=== PATIENT | male | born 1970 | race African-American/Black ===

== ENCOUNTER 2018-01-29 15:03 | Inpatient (IN) | payer OTHER ==
[2018-01-29 16:45] VITALS: BMI 23.0
--- NOTE | 2018-01-29 19:25 | HP ---
COWS - Scale Resting Pulse: 0= VT 80 or Below Sweatin=Flushed/Facial Moisture Restless Observation: 3= Extraneous Movement Pupil Size: 2= Moderately Dilated Bone or Joint Aches: 2= Severe Diffuse Aches Runny Nose/ Eye Tearin= Runny Nose/Eyes GI Upset > 30mins: 3= Vomiting/Diarrhea Tremor Observation: 2= Slight Tremor Visible Yawning Observation: 2= >3x During Session Anxiety or Irritability: 2=Irritable/Anxious Goose Flesh Skin: 0=Smooth Skin COWS Score: 20 CIWA Score - CIWA Score Nausea/Vomitin Muscle Tremors: 3 Anxiety: 3 Agitation: 3 Paroxysmal Sweats: 2 Orientation: 0-Oriented Tacttile Disturbances: 2-Mild Itch/Numbness/Burn Auditory Disturbances: 2-Mild Harshness/Frighten Visual Disturbances: 2-Mild Sensitivity Headache: 2-Mild CIWA-Ar Total Score: 22 Admission ROS BHS - HPI Chief Complaint: I NEED HELP TO STOP USING HEROIN,ALCOHOL,COCAINE Allergies/Adverse Reactions: Allergies Allergy/AdvReac Type Severity Reaction Status Date / Time No Known Allergies Allergy Verified 01/29/18 19:21 History of Present Illness: THIS 47 YEARS OLD MALE WITH HEROIN,ALCOHOL,COCAINE,MARIJUANA DEPENDENCE,SEEKING DETOX,,WITHDRAWAL SYMPTOM,LAST DETOX 2017 [facility] NICOTINE DEPENDENCE ASTHMA ANXIETY,DEPRESSION,INSOMNIA NO SIGNIFICANT PERIOD OF SOBRIETY Exam Limitations: No Limitations - Ebola screening Have you traveled outside of the country in the last 21 days: No Have you had contact with anyone from an Ebola affected area: No Have you been sick,other than usual withdrawal symptoms: Yes Do you have a fever: No - Review of Systems Constitutional: Chills, Loss of Appetite, Malaise, Night Sweats, Changes in sleep, Weakness, Unintentional Wgt. Loss EENT: reports: Tearing, Nose Congestion Respiratory: reports: Wheezing, Other (ASTHMA) Cardiac: reports: No Symptoms Reported GI: reports: Diarrhea, Nausea, Vomiting, Abdominal cramping : reports: No Symptoms Reported Musculoskeletal: reports: Back Pain, Joint Pain, Muscle Pain, Joint Stiffness Integumentary: reports: Dryness Neuro: reports: Headache, Tremors Endocrine: reports: No Symptoms Reported Hematology: reports: No Symptoms Reported Psychiatric: reports: Judgement Intact, Mood/Affect Appropiate, Orientated x3 ( INSOMNIA), Agitated, Anxious, Depressed Patient History - Patient Medical History Hx Anemia: No Hx Asthma: Yes (ON ABUTROL INHALER) Hx Chronic Obstructive Pulmonary Disease (COPD): No Hx Cancer: No Hx Cardiac Disorders: No Hx Congestive Heart Failure: No Hx Hypertension: No Hx Hypercholesterolemia: No Hx Pacemaker: No HX Cerebrovascular Accident: No Hx Seizures: No Hx Dementia: No Hx Diabetes: No Hx Gastrointestinal Disorders: No Hx Liver Disease: No Hx Genitourinary Disorders: No Hx Sexually Transmitted Disorders: No Hx Renal Disease (ESRD): No Hx Thyroid Disease: No Hx Human Immunodeficiency Virus (HIV): No (LAST 2017 NEGATIVE) Hx Hepatitis C: No Hx Depression: Yes (ANXIETY) Hx Suicide Attempt: No Hx Bipolar Disorder: No Hx Schizophrenia: No Other Medical History: INSOMNIA,NO SUICIDAL,NO HOMICIDAL - Patient Surgical History Past Surgical History: No - PPD History Previous Implant?: Yes Documented Results: Negative w/o proof Implanted On Prior [facility] Admission?: No PPD to be Administered?: Yes - Smoking Cessation Smoking history: Current every day smoker Have you smoked in the past 12 months: Yes Aproximately how many cigarettes per day: 20 Cigars Per Day: 0 Hx Chewing Tobacco Use: No Initiated information on smoking cessation: Yes 'Breaking Loose' booklet given: 01/29/18 - Substance & Tx. History Hx Alcohol Use: Yes Hx Substance Use: Yes Substance Use Type: Alcohol, Cocaine, Heroin, Marijuana Hx Substance Use Treatment: Yes ([facility] 2016) - Substances Abused Heroin Route: Inhalation Frequency: Daily Amount used: 10 BAGS Age of first use: 24 Date of Last Use: 01/28/18 Alcohol Route: Oral Frequency: Daily Amount used: 2 PINT S OF DEX/6 PACKS OF 16 OZS OF BEER Age of first use: 13 Date of Last Use: 01/29/18 Cocaine Route: Smoking Frequency: Daily Amount used: 50$ Age of first use: 24 Date of Last Use: 01/28/18 Marijuana/Hashish Route: Smoking Frequency: 3-6 times per week Amount used: 20$ Age of first use: 24 Date of Last Use: 01/28/18 Family Disease History - Family Disease History Family History: Denies Admission Physical Exam BHS - Vital Signs Vital Signs: Vital Signs - 24 hr 01/29/18 16:43 Temperature 96.1 F L Pulse Rate 79 Respiratory 20 Rate Blood Pressure 166/82 - Physical General Appearance: Yes: Moderate Distress, Tremorous, Irritable, Sweating, Anxious HEENTM: Yes: Normal ENT Inspection, Pharynx Normal, Pale Conjunctivae L Respiratory: Yes: Within Normal Limits, Lungs Clear, Normal Breath Sounds Neck: Yes: Within Normal Limits, Supple, Trachea in good position Breast: Yes: Within Normal Limits Cardiology: Yes: Within Normal Limits, Regular Rhythm, Regular Rate, S1, S2 Abdominal: Yes: Within Normal Limits, Normal Bowel Sounds, Non Tender, Soft Genitourinary: Yes: Within Normal Limits Back: Yes: Normal Inspection, Muscle Spasm Musculoskeletal: Yes: Back pain, Joint Stiffness, Muscle Pain Extremities: Yes: Within Normal Limits, Normal Range of Motion, Tremors Neurological: Yes: patent clerk II-XII NML intact, Alert, Motor Strength 5/5 Integumentary: Yes: Dry Lymphatic: Yes: Within Normal Limits - Diagnostic (1) Opioid dependence with withdrawal Current Visit: Yes Status: Acute (2) Alcohol dependence with uncomplicated withdrawal Current Visit: Yes Status: Acute (3) Cocaine dependence Current Visit: Yes Status: Acute (4) Cannabis dependence Current Visit: Yes Status: Acute (5) Nicotine dependence Current Visit: Yes Status: Acute (6) Weight loss Current Visit: Yes Status: Acute (7) Asthma Current Visit: Yes Status: Acute (8) Insomnia secondary to depression with anxiety Current Visit: Yes Status: Acute Cleared for Admission [facility] - Detox or Rehab [facility] Level of Care: Medically Managed Detox Regimen/Protocol: Methadone/Librium [facility] Breath Alcohol Content Breath Alcohol Content: 0 Urine Drug Screen - Results Drug Screen Negative: Yes Urine Drug Screen Results: THC-Marijuana, KRISTEL-Cocaine, OPI-Opiates
[2018-01-29] MEDS ORDERED: chlordiazePOXIDE HCL 25 MG CAPSULE PO ONE (19:39)
[2018-01-29] MEDS ORDERED: METHADONE HCL 10 MG TABLET (FOR DETOX USE ONLY) PO ONE ×2 (19:39→23:00)
[2018-01-29] MEDS ORDERED: NICOTINE POLACRILEX 2 MG GUM BC PRN (19:39)
[2018-01-29] MEDS ORDERED: MAGNESIUM HYDROX 2400MG/30ML ORAL SUSPENSION 30 ML CUP PO PRN (19:39)
[2018-01-29] MEDS ORDERED: hydrOXYzine PAMOATE 50 MG CAPSULE (FP) PO PRN (19:39)
[2018-01-29] MEDS ORDERED: chlordiazePOXIDE HCL 25 MG CAPSULE PO PRN (19:39)
[2018-01-29] MEDS ORDERED: ACETAMINOPHEN 325 MG TABLET (FP) PO PRN (19:39)
[2018-01-29] MEDS ORDERED: MENTHOL/PHENOL 1 EACH UD MM PRN (19:39)
[2018-01-29] MEDS ORDERED: guaiFENesin/D-METHORPHAN HB 10 ML UNIT-DOSE CUPS PO PRN (19:39)
[2018-01-29] MEDS ORDERED: IBUPROFEN 400 MG TABLET (FP) PO PRN (19:39)
[2018-01-29] MEDS ORDERED: LOPERAMIDE HCL 2 MG CAPSULE PO PRN (19:39)
[2018-01-29] MEDS ORDERED: MAG HYDROX/AL HYDROX/SIMETH 30 ML UNIT-DOSE CUP PO PRN (19:39)
[2018-01-29] MEDS ORDERED: P-EPHED 60MG/TRIPROLIDI 2.5MG TABLET PO PRN (19:39)
[2018-01-29] MEDS ORDERED: MAGNESIUM CITRATE 300 ML BOTTLE PO PRN (19:39)
[2018-01-29] MEDS ORDERED: NICOTINE 21 MG/24 HOURS TOPICAL PATCH TD SCH (19:45)
[2018-01-29 21:12] LABS: URINE APPEARANCE CLOUDY; URINE BILIRUBIN NEGATIVE (NEGATIVE); URINE BLOOD NEGATIVE (NEGATIVE); URINE COLOR YELLOW; URINE GLUCOSE (UA) NEGATIVE (NEGATIVE); URINE KETONE TRACE (NEGATIVE); URINE LEUK ESTERASE NEGATIVE (NEGATIVE); URINE NITRITE NEGATIVE (NEGATIVE); URINE PROTEIN NEGATIVE (NEGATIVE); URINE UROBILINOGEN NEGATIVE mg/dL (0.2-1.0)
[2018-01-29] MEDS ORDERED: THIAMINE HCL 100 MG TABLET (FP) PO SCH (22:00)
[2018-01-29] MEDS ORDERED: MELATONIN 5 MG TABLETS PO SCH (22:00)
--- NOTE | 2018-01-29 22:11 | PN ---
[facility] Progress Note Note: As per Ms. Aubrey NIETO, patient was unresponsive for about a minute. Chest compression and rapid response initiated. Patient was tarchycardic, diaphoretic and very anxious. Oxygen at 2 liters per minute initiated. V/S B/P 190/109, HR 132, RR 22, T102.4F, Saturation 97% with oxygen at 2 liters per minute. Blood sugar 165mg/dl. Patient is to be transferred to [facility] ER for further evaluation. Endorsed to Dr. Sesar Gutierrez.
[2018-01-29] MEDS ORDERED: chlordiazePOXIDE HCL 25 MG CAPSULE PO SCH (23:00)
--- NOTE | 2018-01-30 01:55 | PN ---
Teaching Attending Note Name of Resident: Chika Chung ATTENDING PHYSICIAN STATEMENT I saw and evaluated the patient. I reviewed the resident's note and discussed the case with the resident. I agree with the resident's findings and plan as documented. SUBJECTIVE: 47 yo M with hx. of polysubstance abise (heroin, cocaine, marijuana), nicotine dependence, anxiety, depression, insomnia who presents from [facility] where he had a episode of "unresponsiveness," Rapid response was called and CPR was started for one minute, when pt. came to. VS at [facility] showed a BPL 190/109, RR 22, HR 132, T 102.4. He had 02 sat of 97% on 02. BS was 165. OBJECTIVE: Physical: VS: Vital Signs Period Temp Pulse Resp BP Sys/Arambula Pulse Ox Last 24 Hr 96.1 F-98.2 F 79-82 20-20 166-182/78-82 GEN: HEENT: CARD: RESP: ABD: EXT: ASSESSMENT AND PLAN:
--- NOTE | 2018-01-30 02:04 | PN ---
Teaching Attending Note Name of Resident: Chika Chung ATTENDING PHYSICIAN STATEMENT I saw and evaluated the patient. I reviewed the resident's note and discussed the case with the resident. I agree with the resident's findings and plan as documented. SUBJECTIVE: 47 M with Pmhx of polysubstance abuse presents from [facility] s/p unresponsive episode. Pt. does not remember what happened, only that he feels tired. As per notes from [facility] [employer] was called for unresponsive episode. Pt. was found unresponsive and CPR started for "about a minute." His VS at [facility] are 02 97 % with 2 L NC, BS 165, HR 132 and P 190/109. Pt. states he was sleeping and they woke him up by preforming 2 compressions. OBJECTIVE: Physical: VS: Vital Signs Period Temp Pulse Resp BP Sys/Arambula Pulse Ox Last 24 Hr 96.1 F-98.2 F 79-82 20-20 166-182/78-82 GEN: NAD, Resting in bed, AA0X3 HEENT: NCAT, PERRL, Throat without erythema or exudates, poor dentition CARD: RRR S1, S2 RESP:Coarse breath sounds ABD: BSx4, NTD to Palpation EXT: Chronic Venous stasis, Pulses intact UA- Pending CXR- No Acute Process CBC: WBC 15.7 CHEM: NA 135 TROP: 0.14 EKG: NSR,TWI lateral leads, QtC 518 CXR: No acute Process ASSESSMENT AND PLAN: 47 M with hx. fo Polysubstance abuse presents with episode of Unresponsiveness, Being admitted for Troponin Elevation 1.) Elevated Troponin - HEART 2 - Most Likely Demand - ASA - Trend Trop/EKG 2.) Polysubstance Abuse - CIWA -
--- NOTE | 2018-01-30 09:09 | CONSULT ---
Consult Detox [facility] Reason for Current Admission/Consult: substance use Referred by:: moiz monaco - Alcohol/Substance Use Hx Alcohol Use: Yes COWS - Scale Resting Pulse: 0= AR 80 or Below Sweatin=Flushed/Facial Moisture Restless Observation: 3= Extraneous Movement Pupil Size: 2= Moderately Dilated Bone or Joint Aches: 2= Severe Diffuse Aches Runny Nose/ Eye Tearin= Runny Nose/Eyes GI Upset > 30mins: 3= Vomiting/Diarrhea Tremor Observation: 2= Slight Tremor Visible Yawning Observation: 2= >3x During Session Anxiety or Irritability: 2=Irritable/Anxious Goose Flesh Skin: 0=Smooth Skin COWS Score: 20 CIWA Score - CIWA Score Nausea/Vomitin Muscle Tremors: 3 Anxiety: 3 Agitation: 3 Paroxysmal Sweats: 2 Orientation: 0-Oriented Tacttile Disturbances: 2-Mild Itch/Numbness/Burn Auditory Disturbances: 2-Mild Harshness/Frighten Visual Disturbances: 2-Mild Sensitivity Headache: 2-Mild CIWA-Ar Total Score: 22
[2018-01-30] MEDS ORDERED: PRENATAL VITAMINS W/ FOLIC ACID TABLET (FP) PO SCH (10:00)
[2018-01-30] MEDS ORDERED: METHADONE HCL 10 MG TABLET (FOR DETOX USE ONLY) PO SCH (10:00)
[2018-01-30] MEDS ORDERED: METHADONE HCL 10 MG TABLET PO ONE (16:28)
[2018-01-30] MEDS ORDERED: cloNIDine HCL 0.1 MG TABLET PO SCH (22:00)
[2018-01-30] MEDS ORDERED: chlordiazePOXIDE HCL 25 MG CAPSULE PO SCH (23:00)
[2018-01-31 00:33] VITALS: BP 190/109; PULSE 132; TEMP 102.4
[2018-01-31] MEDS ORDERED: METHADONE HCL 5 MG TABLET (FOR DETOX USE ONLY) PO SCH (10:00)
[2018-01-31] MEDS ORDERED: chlordiazePOXIDE 5 MG CAPSULE PO SCH (23:00)
[2018-02-01] MEDS ORDERED: chlordiazePOXIDE HCL 10 MG CAPSULE PO SCH (23:00)
[2018-02-02] MEDS ORDERED: METHADONE HCL 10 MG TABLET (FOR DETOX USE ONLY) PO SCH (10:00)
[2018-02-03] MEDS ORDERED: METHADONE HCL 5 MG TABLET (FOR DETOX USE ONLY) PO SCH (06:00)
== END 2018-01-30 09:19 | disposition short-term general hospital (02) | DRG 773 ==
LOC: YASAS 15:03 → Y6N 19:40
PROVIDERS: ADMIT Internal Medicine; ATTEND Internal Medicine
PROC: HZ2ZZZZ Detoxification Services for Substance Abuse Treatment (ICD-10-PCS; principal; 2018-01-29)
DX: F11.23 Opioid dependence with withdrawal (principal); F10.230 Alcohol dependence with withdrawal, uncomplicated; F14.20 Cocaine dependence, uncomplicated; F12.20 Cannabis dependence, uncomplicated; F17.210 Nicotine dependence, cigarettes, uncomplicated; F51.05 Insomnia due to other mental disorder; J45.990 Exercise induced bronchospasm; R63.4 Abnormal weight loss; Z68.23 Body mass index [BMI] 23.0-23.9, adult; Z59.0 Homelessness
CPT/HCPCS: 81003; 82962

== ENCOUNTER 2018-01-29 22:37 | Inpatient (IN) | payer OTHER ==
[2018-01-29 23:20] VITALS: BMI 22.7
--- NOTE | 2018-01-29 23:28 | PDOC ---
History of Present Illness - General Chief Complaint: Shortness of Breath Stated Complaint: DETOX Time Seen by Provider: 01/29/18 23:15 History Source: Patient, Other ([facility]) - History of Present Illness Initial Comments: 01/30/18 01:24 47 year old male BIBA for altered mental status as per patient he is undomiciled " i have been waiting for a bed for a long time, i was tired." denies syncope, chest pain, diaphoresis, respiratory distress, NVD, abdominal pain. . patient is in detox for cocaine, heroin and alcohol . As per [facility] patient noted to be unresponsive and a thready pulse, chest compressions started and patient revived back to normal state. Past History - Past Medical History Allergies/Adverse Reactions: Allergies Allergy/AdvReac Type Severity Reaction Status Date / Time No Known Allergies Allergy Verified 01/29/18 19:21 Home Medications: Ambulatory Orders NK [No Known Home Medication] 01/29/18 Anemia: No Asthma: Yes (ON ABUTROL INHALER) Cancer: No Cardiac Disorders: No CVA: No COPD: No CHF: No Dementia: No Diabetes: No GI Disorders: No Disorders: No HTN: No Hypercholesterolemia: No Liver Disease: No Seizures: No Thyroid Disease: No - Suicide/Smoking/Psychosocial Hx Smoking History: Current every day smoker Have you smoked in the past 12 months: Yes Number of Cigarettes Smoked Daily: 20 Cigars Per Day: 0 Information on smoking cessation initiated: Yes 'Breaking Loose' booklet given: 01/29/18 Hx Alcohol Use: Yes Drug/Substance Use Hx: Yes Substance Use Type: Alcohol, Heroin Hx Substance Use Treatment: Yes ([facility] 2017) *Physical Exam - Vital Signs Last Vital Signs Temp Pulse Resp BP Pulse Ox 98.3 F 80 30 H 132/52 91 L 01/29/18 22:56 01/29/18 22:56 01/29/18 22:56 01/29/18 22:56 01/29/18 22:56 - Physical Exam General Appearance: Yes: Disheveled Respiratory/Chest: positive: Lungs Clear Cardiovascular: positive: Regular Rhythm, Regular Rate Gastrointestinal/Abdominal: positive: Normal Bowel Sounds, Soft Heart Score/ECG Review - History History: Moderately suspicious - Electrocardiogram EKG: Non specific repolarization disturbance - Age Age: 45-65 - Risk Factors Risk Factors Heart Score: Yes Smoking History Based on the list above the patient has:: 1-2 risk factors - Troponin Troponin: >/=3x normal limit - Score Heart Score - Total: 6 - ECG Intrepretation Rhythm: Regular Rhythm Comment:: 01/30/18 01:47 Sinus rhythm with PACs. ED Treatment Course - LABORATORY CBC & Chemistry Diagram: 01/29/18 23:50 01/29/18 23:50 Medical Decision Making - Medical Decision Making 01/30/18 01:31 A: AMS Patient alert ox3. chest xray : negative CBC; 15.9 CMP Troponin: + 01/30/18 02:12 patient to be admitted for r/o ACS, patient signed out randall LACEY/ Dr. Bolivar *DC/Admit/Observation/Transfer Diagnosis at time of Disposition: Altered mental state Qualifiers: Altered mental status type: disorientation Qualified Code(s): R41.0 - Disorientation, unspecified - Discharge Dispostion Admit: Yes - Referrals - Patient Instructions - Post Discharge Activity
[2018-01-30 00:01] LABS: BASO % 0.2 % (0-2.0); HEMATOCRIT 36.7 % (35.4-49); HEMOGLOBIN 12.1 GM/dL (11.7-16.9); LYMPH % 2.6 % (8-40); MCH 29.8 pg (25.7-33.7); MEAN CELL VOLUME 90.2 fl (80-96); MEAN PLT VOLUME 8.4 fl (7.5-11.1); MONO % 6.1 % (3.8-10.2); NEUT % 91.1 % (42.8-82.8); PLATELET COUNT 241 K/MM3 (134-434); RBC 4.07 M/mm3 (4.00-5.60); RDW 13.1 % (11.9-15.9); WHITE BLOOD COUNT 15.7 K/mm3 (4.0-10.0)
[2018-01-30 00:25] LABS: ALBUMIN 3.1 g/dl (3.4-5.0); ANION GAP 12 (8-16); BILIRUBIN,TOTAL 1.1 mg/dL (0.2-1.0); BLOOD UREA NITROGEN 10 mg/dL (7-18); CALCIUM 8.3 mg/dL (8.5-10.1); CHLORIDE 97 mmol/L (98-107); CO2 26 mmol/L (21-32); CREATININE 0.9 mg/dL (0.7-1.3); GLUCOSE,RANDOM 148 mg/dL (74-106); POTASSIUM 3.5 mmol/L (3.5-5.1); SGOT/AST 33 U/L (15-37); SGPT/ALT 21 U/L (12-78); SODIUM 135 mmol/L (136-145); TOT PROT 7.3 g/dl (6.4-8.2)
[2018-01-30 00:26] LABS: INR 1.19 (0.82-1.09); PROTHROMBIN TIME (PATIENT) 13.4 SEC (9.98-11.88)
[2018-01-30 00:27] LABS: ALK PHOS 78 U/L (45-117)
[2018-01-30] MEDS ORDERED: chlordiazePOXIDE HCL 25 MG CAPSULE ONE ×3 (01:24→11:47)
[2018-01-30] MEDS ORDERED: chlordiazePOXIDE HCL 25 MG CAPSULE PO ONE ×2 (01:33→02:07)
--- NOTE | 2018-01-30 01:36 | PDOC ---
*Physical Exam - Vital Signs Last Vital Signs Temp Pulse Resp BP Pulse Ox 98.3 F 80 30 H 132/52 91 L 01/29/18 22:56 01/29/18 22:56 01/29/18 22:56 01/29/18 22:56 01/29/18 22:56 ED Treatment Course - LABORATORY CBC & Chemistry Diagram: 01/30/18 06:29 01/30/18 06:29 - ADDITIONAL ORDERS Additional order review: Laboratory Results 01/29/18 01/29/18 23:50 23:50 PT with INR 13.40 H INR 1.19 H Sodium 135 L Potassium 3.5 Chloride 97 L Carbon Dioxide 26 Anion Gap 12 BUN 10 Creatinine 0.9 Creat Clearance w eGFR > 60 Random Glucose 148 H Calcium 8.3 L Magnesium 2.0 Total Bilirubin 1.1 H AST 33 ALT 21 Alkaline Phosphatase 78 Creatine Kinase 423 H Creatine Kinase Index 0.3 CK-MB (CK-2) 1.567 Troponin I 0.14 H Total Protein 7.3 Albumin 3.1 L 01/29/18 23:50 RBC 4.07 MCV 90.2 MCHC 33.0 RDW 13.1 MPV 8.4 Neutrophils % 91.1 H Lymphocytes % 2.6 L Monocytes % 6.1 Eosinophils % 0.0 Basophils % 0.2 - Medications Given in the ED: ED Medications Discontinued Medications Generic Name Dose Route Start Last Admin Trade Name Freq PRN Reason Stop Dose Admin Chlordiazepoxide HCl 25 mg 01/30/18 01:33 01/30/18 01:34 Librium - PO 01/30/18 01:34 25 mg ONCE ONE Administration Medical Decision Making - Medical Decision Making 01/30/18 01:35 agree with care from RAJAN Sandoval *DC/Admit/Observation/Transfer Diagnosis at time of Disposition: Altered mental state - Referrals - Patient Instructions - Post Discharge Activity
--- NOTE | 2018-01-30 01:50 | HP ---
CHIEF COMPLAINT: alcohol, heroin withdrawal PCP: HISTORY OF PRESENT ILLNESS: 47 y/o homeless M with PMH heroin, alcohol, cocaine, marijuana dependence, asthma, anxiety, depression, and insomnia, brought in from [facility] d/t [facility]. As per [facility], patient was there for detox from cocaine, heroin and alcohol, and was admitted yesterday. Pt states that this was part of "[facility] While there this evening, he was found to be "unresponsive" with a thready pulse , so chest compressions were initiated. As per staff, two compressions were completed when patient had become responsive. However, as per pt, no compressions were done and he was "just sleeping." He states that he was told he needed to go seek treatment at [facility], or he would risk being removed from the detox program. At this time, pt endorses myalgias, fatigue, subjective chills, tremors, and nausea without emesis. Denies MONTES, fever, SOB, chest pain or pressure, or changes in urinary or bowel function. Pt is currently homeless and has lived on the streets for a few years. He states that his last detox was approx two years ago. He has used heroin for fifteen years- a "bundle" a day. Has drank a six-pack of beers along with hard liquor daily for the past twenty years. States that he has also used cocaine and marijuana "frequently." ER course was notable for: (1) Librium 25mg PO x 1 (2) Trop (+) 0.14 (3) Leukocytosis 15.7 Recent Travel: none PAST MEDICAL HISTORY: as above PAST SURGICAL HISTORY: denies Social History: homeless, lives on streets Smoking: daily active smoker, unable to quantify Alcohol: twenty years; six pack of beers along with hard liquor daily Drugs: heroin, cocaine, marijuana Family History: unknown Allergies No Known Allergies Allergy (Verified 01/29/18 19:21) HOME MEDICATIONS: Home Medications Medication Instructions Recorded NK [No Known Home Medication] 01/29/18 -Uses Ventolin PRN for asthma REVIEW OF SYSTEMS CONSTITUTIONAL: +chills, fatigue Absent: fever, diaphoresis, generalized weakness, malaise, loss of appetite, weight change HEENT: Absent: rhinorrhea, nasal congestion, throat pain, throat swelling, difficulty swallowing, mouth swelling, ear pain, eye pain, visual changes CARDIOVASCULAR: Absent: chest pain, syncope, palpitations, irregular heart rate, lightheadedness , peripheral edema RESPIRATORY: Absent: cough, shortness of breath, dyspnea with exertion, orthopnea, wheezing, stridor, hemoptysis GASTROINTESTINAL: +nausea Absent: abdominal pain, abdominal distension, vomiting, diarrhea, constipation, melena, hematochezia GENITOURINARY: Absent: dysuria, frequency, urgency, hesitancy, hematuria, flank pain, genital pain MUSCULOSKELETAL: +myalgias Absent: arthralgia, joint swelling, back pain, neck pain SKIN: Absent: rash, itching, pallor HEMATOLOGIC/IMMUNOLOGIC: Absent: easy bleeding, easy bruising, lymphadenopathy, frequent infections ENDOCRINE: Absent: unexplained weight gain, unexplained weight loss, heat intolerance, cold intolerance NEUROLOGIC: +tremors Absent: headache, focal weakness or paresthesias, dizziness, unsteady gait, seizure, mental status changes, bladder or bowel incontinence PSYCHIATRIC: +irritable Absent: anxiety, depression, suicidal or homicidal ideation, hallucinations. PHYSICAL EXAMINATION Vital Signs 01/29/18 22:56 Temperature 98.3 F Pulse Rate 80 Respiratory 30 H Rate Blood Pressure 132/52 O2 Sat by Pulse 91 L Oximetry (%) GENERAL: AAOx 2 (self, place), in no acute distress. Yawning, mildly irritable HEAD: Normal with no signs of trauma. EYES: Pupils equal, round and reactive to light, extraocular movements intact, sclera anicteric, conjunctiva clear. EARS, NOSE, THROAT: Ears normal, nares patent, oropharynx clear without exudates. TEETH: +poor dentition, no sores or ulcers noted in oral cavity NECK: Normal range of motion, supple LUNGS: Breath sounds equal, clear to auscultation bilaterally. No wheezes, and no crackles. No accessory muscle use. HEART: Regular rate and rhythm, normal S1 and S2 without murmur, rub or gallop. ABDOMEN: Soft, diffusely TTP, not distended, normoactive bowel sounds, no guarding, no rebound, no masses. MUSCULOSKELETAL: Normal range of motion at all joints. +Mild tremor in upper extremities LOWER EXTREMITIES: 2+ posterior tibial pulses, warm, well-perfused. No calf tenderness. No peripheral edema. NEUROLOGICAL: Cranial nerves II-XII intact. Laboratory Results 01/29/18 01/29/18 01/29/18 23:50 23:50 23:50 WBC 15.7 H RBC 4.07 Hgb 12.1 Hct 36.7 MCV 90.2 MCH 29.8 MCHC 33.0 RDW 13.1 Plt Count 241 MPV 8.4 Neutrophils % 91.1 H Lymphocytes % 2.6 L Monocytes % 6.1 Eosinophils % 0.0 Basophils % 0.2 PT with INR 13.40 H INR 1.19 H Sodium 135 L Potassium 3.5 Chloride 97 L Carbon Dioxide 26 Anion Gap 12 BUN 10 Creatinine 0.9 Creat Clearance w eGFR > 60 Random Glucose 148 H Calcium 8.3 L Magnesium 2.0 Total Bilirubin 1.1 H AST 33 ALT 21 Alkaline Phosphatase 78 Creatine Kinase 423 H Creatine Kinase Index 0.3 CK-MB (CK-2) 1.567 Troponin I 0.14 H Total Protein 7.3 Albumin 3.1 L TESTS CXR: bullous findings with coarse changes. ill defined density by anterior aspect of third rib EKG: normal sinus with PAC's, t wave inversions v4-v6, QT prolongation Qtc > 500ms ASSESSMENT/PLAN: 47 y/o homeless M with PMH heroin, alcohol, cocaine, marijuana dependence, asthma, anxiety, depression, and insomnia, brought in from [facility]/t [facility]. Pt admitted to tele-obs for r/o ACS, alcohol and heroin withdrawal. #Unresponsiveness; ?CPR, r/o ACS -Initial trop elevated 0.14, however without complaint of chest pain. -possible 2/2 CPR, however less likely as short duration -leukocytosis 15.7 likely reactive -Continue to trend trops q6h - 2nd trop at 6AM -EKG with evidence of Tw inversions in v4-v6 - unclear if this is new, continue to follow EKG. Obtain past EKG if possible -R/o syncopal episode - orthostatic VS -Telemetry monitoring -F/u ECHO -F/u carotid US -if with mental status changes, rec CT head non con #Substance abuse, alcohol and heroin withdrawal -CIWA score 15 - mild to moderate alc withdrawal -COWS score 13- moderate opiate withdrawal -Detox consult- Dr. Mcintosh -Will give methadone 5mg PO x 1. However closely monitor as pt with prolonged QTc>500ms -Received librium 25mg PO x 1 in ED -Will start on librium protocol -Compazine q4h PRN for nausea/vomiting -Thiamine 100mg PO qd -Folic acid 1mg PO qd -IVF #Qt prolongation -Avoid QT prolonging agents -Pt to receive 1 stat dose Methadone 5mg PO -However, check EKG daily to monitor Qtc #UTI -UA: 2+ leuk esterase, 85 WBCs -Given one dose of rocephin 1g -F/u urine cx #Lung density -CXR with evidence of bullous findings with coarse changes. ill defined small density seen by anterior aspect third rib -will need further eval via CT Chest w/con #Asthma -Pt without active complaints -Albuterol q4h PRN for SOB/wheezing #F/E/N IV NS 100 cc/hr Monitor electrolytes Regular diet in AM if can tolerate #PPX DVT: SCD's, early ambulation #Dispo tele-obs Visit type - Emergency Visit Emergency Visit: Yes ED Registration Date: 01/30/18 Care time: The patient presented to the Emergency Department on the above date and was hospitalized for further evaluation of their emergent condition. - New Patient This patient is new to me today: Yes Date on this admission: 01/30/18 - Critical Care Critical Care patient: No Hospitalist Screening - Colonoscopy Questionnaire Colonoscopy Questionnaire: Colonoscopy Questionnaire - Patient: 50 - 75 years old and never had a screening colonoscopy: Unknown History of colon or rectal polyps, or CA: Unknown History of IBD, Crohn's disease or UC: Unknown History of abdominal radiation therapy as a child: Unknown - Relative: 1 with colon or rectal CA, or polyps at age 60 or younger: Unknown Colon or rectal CA diagnosed at age 45 or younger: Unknown Multiple relatives with colon or rectal CA: Unknown - Outcome: Screening Result: Negative Screen
[2018-01-30] MEDS ORDERED: METOCLOPRAMIDE HCL INJECTION 10 MG/2 ML VIAL IVPUSH ONE (02:19)
[2018-01-30 02:26] LABS: URINE APPEARANCE SLCLOUDY; URINE BILIRUBIN NEGATIVE (NEGATIVE); URINE BLOOD NEGATIVE (NEGATIVE); URINE COLOR YELLOW; URINE GLUCOSE (UA) 1+ (NEGATIVE); URINE KETONE NEGATIVE (NEGATIVE); URINE NITRITE NEGATIVE (NEGATIVE)
[2018-01-30] MEDS ORDERED: METOCLOPRAMIDE HCL 10 MG TABLET (FP) PO ONE ×2 (02:27→03:48)
[2018-01-30 02:33] LABS: METHADONE, UR NEGATIVE ng/ml (CUTOFF=300); OPIATES, URI NEGATIVE ng/ml (CUTOFF=300); PHENCYCLIDINE,URINE NEGATIVE ng/ml (CUTOFF=25); URINE AMPHETAMINES NEGATIVE ng/ml (CUTOFF=500); URINE BARBITURATES NEGATIVE ng/ml (CUTOFF=200); URINE BENZODIAZEPINES NEGATIVE ng/ml (CUTOFF=200)
[2018-01-30 02:34] LABS: COCAINE, UR POSITIVE ng/ml (CUTOFF=300)
[2018-01-30 02:39] LABS: URINE LEUK ESTERASE 2+ (NEGATIVE); URINE PROTEIN 2+ (NEGATIVE)
--- NOTE | 2018-01-30 02:44 | PN ---
Teaching Attending Note Name of Resident: Chika Chung ATTENDING PHYSICIAN STATEMENT I saw and evaluated the patient. I reviewed the resident's note and discussed the case with the resident. I agree with the resident's findings and plan as documented. SUBJECTIVE: 47 to M with Pmhx of Polysubstance abuse (cocaine, marijuana, etoh, Heroin) who was at [facility] when he was found "unresponsive." As per pt. he was sleeping when CPR was started on him with 2 compressions. States he was aware of what happened. Denies any chest pain, pressure, or shortness of breath. States he has had occasional dry cough. OBJECTIVE: Physical: VS: Vital Signs Period Temp Pulse Resp BP Sys/Arambula Pulse Ox Last 24 Hr 98.3 F 80 30 132/52 91 PULSE ox 99% At BEDSIDE RR 18 GEN: NAD, Resting in bed, AAoX3 HEENT: NCAT, PERRL, Throat without erythema or exudates, Poor Dentition CARD: RRR S1, S2 RESP: Mild Crackles bases ABD: BS X4, NTD to palpation EXT: Chronic Venous stasis NEURO: AA0X3, MS 5/5 II-XII intact CBCD WBC 15.7 K/mm3 (4.0-10.0) H 01/29/18 23:50 RBC 4.07 M/mm3 (4.00-5.60) 01/29/18 23:50 Hgb 12.1 GM/dL (11.7-16.9) 01/29/18 23:50 Hct 36.7 % (35.4-49) 01/29/18 23:50 MCV 90.2 fl (80-96) 01/29/18 23:50 MCHC 33.0 g/dl (32.0-35.9) 01/29/18 23:50 RDW 13.1 % (11.9-15.9) 01/29/18 23:50 Plt Count 241 K/MM3 (134-434) 01/29/18 23:50 MPV 8.4 fl (7.5-11.1) 01/29/18 23:50 CMP Sodium 135 mmol/L (136-145) L 01/29/18 23:50 Potassium 3.5 mmol/L (3.5-5.1) 01/29/18 23:50 Chloride 97 mmol/L (98-107) L 01/29/18 23:50 Carbon Dioxide 26 mmol/L (21-32) 01/29/18 23:50 Anion Gap 12 (8-16) 01/29/18 23:50 BUN 10 mg/dL (7-18) 01/29/18 23:50 Creatinine 0.9 mg/dL (0.7-1.3) 01/29/18 23:50 Creat Clearance w eGFR > 60 (>60) 01/29/18 23:50 Random Glucose 148 mg/dL (74-106) H 01/29/18 23:50 Calcium 8.3 mg/dL (8.5-10.1) L 01/29/18 23:50 Total Bilirubin 1.1 mg/dL (0.2-1.0) H 01/29/18 23:50 AST 33 U/L (15-37) 01/29/18 23:50 ALT 21 U/L (12-78) 01/29/18 23:50 Alkaline Phosphatase 78 U/L (45-117) 01/29/18 23:50 Total Protein 7.3 g/dl (6.4-8.2) 01/29/18 23:50 Albumin 3.1 g/dl (3.4-5.0) L 01/29/18 23:50 CARDIAC ENZYMES Creatine Kinase 423 IU/L (39-308) H 01/29/18 23:50 Troponin I 0.14 ng/ml (0.00-0.05) H 01/29/18 23:50 CXR- Bullous findings with coarse lung changes, small ill-defined density by anterior aspect R. 3rd rib. EKg: NSR TWI Lateral leads QtC 514 ASSESSMENT AND PLAN: 47 to M with Pmhx of Polysubstance abuse (cocaine, marijuana, etoh, Heroin) who was at [facility] when he was found unresponsive (Patient Denies), found to have elevated troponin 1.) Unresponsive - REFUSING LABS -?NOT verified by patient - States he was NEVER unconscious - Echo - Trend Trop/EKG - Orthostatics - ? Syncope- Pt. Denies- Can consider Carotid - MS at baseline, no neuro changes - If reoccurs continue CT HEAD 2.) Polysubstance abuse - Methadone- SMALL DOSE, Pt. had INC. QtC - Needs monitoring - Repeat EKG - WA with Librium - Thiamine/Folic A - Detox Consult 3.) Asthma - Albuterol Nebs Prn 4.) Prolonged QtC - Check. Mg2+ - Keep K>4.0, Mg2+>2.0 - Avoid Prolonging Agents, Be very cautious with Methadone 5.) UTI - UCx - Ceftriaxone 6.) ? Density on CXR - CT Chest 7.) Dvt Ppx - SCDs - Ambulate Place in Obs-Tele
[2018-01-30 02:48] LABS: EPI CELLS RARE /HPF (FEW); URINE MUCUS RARE
[2018-01-30] MEDS ORDERED: METHADONE HCL 10 MG TABLET PO ONE ×3 (02:56→23:00)
[2018-01-30] MEDS ORDERED: chlordiazePOXIDE HCL 25 MG CAPSULE PO PRN (03:09)
[2018-01-30] MEDS ORDERED: PROCHLORPERAZINE INJECTION 10 MG/2 ML VIAL IM PRN (03:13)
[2018-01-30 03:17] LABS: URINE SPERM FEW
[2018-01-30] MEDS ORDERED: ALBUTEROL SO4 0.083% IH SOL 2.5 MG/3 ML VIAL.NEB. NEB PRN (03:17)
[2018-01-30] MEDS ORDERED: FOLIC ACID INJECTION - 1 MG, THIAMINE HCL 100 MG, MULTIVIT INJECTION ADULT 10 ML in SOD... IVPB ONE ×2 (03:30→13:03)
[2018-01-30] MEDS ORDERED: METHADONE HCL 10 MG TABLET ONE (03:42)
[2018-01-30] MEDS: SODIUM CHLORIDE 1,000 ML IV SCH (04:01)
[2018-01-30] MEDS: chlordiazePOXIDE HCL 25 MG CAPSULE PO SCH ×4 (05:13→22:36)
[2018-01-30] MEDS ORDERED: CEFTRIAXONE 1 GM in DEXTROSE 5%-WATER - 50 ML IVPB ONE (05:55)
[2018-01-30 06:41] LABS: BASO % 0.2 % (0-2.0); HEMATOCRIT 37.5 % (35.4-49); HEMOGLOBIN 12.5 GM/dL (11.7-16.9); LYMPH % 4.6 % (8-40); MCH 30.4 pg (25.7-33.7); MCHC 33.3 g/dl (32.0-35.9); MEAN CELL VOLUME 91.1 fl (80-96); MEAN PLT VOLUME 9.2 fl (7.5-11.1); MONO % 6.2 % (3.8-10.2); PLATELET COUNT 227 K/MM3 (134-434); RBC 4.12 M/mm3 (4.00-5.60); RDW 13.1 % (11.9-15.9); WHITE BLOOD COUNT 17.8 K/mm3 (4.0-10.0)
[2018-01-30 07:08] LABS: CHLORIDE 97 mmol/L (98-107); SODIUM 134 mmol/L (136-145)
[2018-01-30 07:26] LABS: ANION GAP 15 (8-16); BLOOD UREA NITROGEN 9 mg/dL (7-18); CALCIUM 8.2 mg/dL (8.5-10.1); CO2 22 mmol/L (21-32); CREATININE 0.8 mg/dL (0.7-1.3); GLUCOSE,RANDOM 143 mg/dL (74-106)
[2018-01-30 07:30] LABS: POTASSIUM 3.7 mmol/L (3.5-5.1)
[2018-01-30 07:55] LABS: MAGNESIUM 1.8 mg/dL (1.8-2.4)
--- NOTE | 2018-01-30 08:23 | EKG ---
Test Reason : Blood Pressure : / mmHG Vent. Rate : 097 BPM Atrial Rate : 097 BPM P-R Int : 132 ms QRS Dur : 088 ms QT Int : 408 ms P-R-T Axes : 078 085 068 degrees QTc Int : 518 ms SINUS RHYTHM WITH PREMATURE ATRIAL COMPLEXES T WAVE ABNORMALITY, CONSIDER LATERAL ISCHEMIA PROLONGED QT ABNORMAL ECG NO PREVIOUS ECGS AVAILABLE Confirmed by ANGELY LEIGH MD ([id number]) on 01/30/2018 8:23:03 AM Referred By: Confirmed By:ANGELY LEIGH MD
--- NOTE | 2018-01-30 08:24 | EKG ---
Test Reason : Blood Pressure : / mmHG Vent. Rate : 076 BPM Atrial Rate : 076 BPM P-R Int : 122 ms QRS Dur : 096 ms QT Int : 444 ms P-R-T Axes : 070 088 085 degrees QTc Int : 499 ms NORMAL SINUS RHYTHM WITH SINUS ARRHYTHMIA T WAVE ABNORMALITY, CONSIDER ANTERIOR ISCHEMIA PROLONGED QT ABNORMAL ECG WHEN COMPARED WITH ECG OF 29-JAN-2018 23:29, PREMATURE ATRIAL COMPLEXES ARE NO LONGER PRESENT Confirmed by REESE LACEY, ANGELY ([id number]) on 01/30/2018 8:24:16 AM Referred By: Confirmed By:ANGELY LEIGH MD
--- NOTE | 2018-01-30 08:37 | PN ---
Physical Exam: SUBJECTIVE: Patient seen and examined by me this AM - Denies CP, palpitations, sob, f/c/n/v/d, rashes; Endorsing diffuse body aches , complaining of pain and wants medication; dry cough; denies visual and auditory hallucinations, but does endorse sensation of "skin crawling"; Agitated , argumentative with staff; Noncompliant with staff until he receives methadone per pt OBJECTIVE: Vital Signs Intake & Output 01/27/18 01/28/18 01/29/18 01/30/18 23:59 23:59 23:59 23:59 Weight 69.853 kg Period Temp Pulse Resp BP Sys/Arambula Pulse Ox Last 24 Hr 98.3 F-98.6 F 80-88 18-30 132-147/52-76 91-100 GENERAL: Middle aged man, in mild distress, lying in bed. HEAD: Normal with no signs of trauma. EYES: extraocular movements intact, sclera anicteric, conjunctiva clear. No ptosis. ENT: Poor dentition. Ears normal, nares patent, oropharynx clear without exudates, moist mucous membranes. NECK: Trachea midline, full range of motion, supple. LUNGS: Diffuse rhonchi, expiratory wheezing. HEART: Tachycardic, RRR, S1, S2 without murmur, rub or gallop. ABDOMEN: discomfort to epigastric palpation. Soft, nondistended, normoactive bowel sounds, no guarding, no rebound, no hepatosplenomegaly, no masses. EXTREMITIES: BL stasis dematitis, 2+ pulses, warm, well-perfused, no edema. NEUROLOGICAL: Cranial nerves II through XII grossly intact. Normal speech, gait not observed. PSYCH: Agitated. Endorses senspry hallucinations, denies command auditory hallucinations SKIN: Warm, dry, normal turgor Laboratory Results - last 24 hr CBC, BMP 01/30/18 06:29 01/30/18 06:29 01/29/18 01/29/18 01/29/18 23:50 23:50 23:50 WBC 15.7 H RBC 4.07 Hgb 12.1 Hct 36.7 MCV 90.2 MCH 29.8 MCHC 33.0 RDW 13.1 Plt Count 241 MPV 8.4 Neutrophils % 91.1 H Lymphocytes % 2.6 L Monocytes % 6.1 Eosinophils % 0.0 Basophils % 0.2 PT with INR 13.40 H INR 1.19 H Sodium 135 L Potassium 3.5 Chloride 97 L Carbon Dioxide 26 Anion Gap 12 BUN 10 Creatinine 0.9 Creat Clearance w eGFR > 60 Random Glucose 148 H Lactic Acid Calcium 8.3 L Phosphorus Magnesium 2.0 Total Bilirubin 1.1 H AST 33 ALT 21 Alkaline Phosphatase 78 Creatine Kinase 423 H Creatine Kinase Index 0.3 CK-MB (CK-2) 1.567 Troponin I 0.14 H Total Protein 7.3 Albumin 3.1 L Urine Color Urine Appearance Urine pH Ur Specific [place] Urine Protein Urine Glucose (UA) Urine Ketones Urine Blood Urine Nitrite Urine Bilirubin Urine Urobilinogen Ur Leukocyte Esterase Urine WBC (Auto) Urine RBC (Auto) Ur Epithelial Cells Urine Mucus Opiates Screen Methadone Screen Barbiturate Screen Phencyclidine Screen Ur Amphetamines Screen MDMA (Ecstasy) Screen Benzodiazepines Screen Cocaine Screen U Marijuana (THC) Screen 01/30/18 01/30/18 01/30/18 02:09 02:09 02:09 WBC RBC Hgb Hct MCV MCH MCHC RDW Plt Count MPV Neutrophils % Lymphocytes % Monocytes % Eosinophils % Basophils % PT with INR INR Sodium Potassium Chloride Carbon Dioxide Anion Gap BUN Creatinine Creat Clearance w eGFR Random Glucose Lactic Acid 1.5 Calcium Phosphorus Magnesium Total Bilirubin AST ALT Alkaline Phosphatase Creatine Kinase Creatine Kinase Index CK-MB (CK-2) Troponin I Total Protein Albumin Urine Color Yellow Urine Appearance Slcloudy Urine pH 8.0 Ur Specific [place] 1.013 Urine Protein 2+ H Urine Glucose (UA) 1+ H Urine Ketones Negative Urine Blood Negative Urine Nitrite Negative Urine Bilirubin Negative Urine Urobilinogen 2.0 Ur Leukocyte Esterase 2+ H Urine WBC (Auto) 85 Urine RBC (Auto) 27 Ur Epithelial Cells Rare Urine Mucus Rare Opiates Screen Negative Methadone Screen Negative Barbiturate Screen Negative Phencyclidine Screen Negative Ur Amphetamines Screen Negative MDMA (Ecstasy) Screen Negative Benzodiazepines Screen Negative Cocaine Screen Positive U Marijuana (THC) Screen Negative 01/30/18 01/30/18 01/30/18 06:29 06:29 06:29 WBC 17.8 H RBC 4.12 Hgb 12.5 Hct 37.5 MCV 91.1 MCH 30.4 MCHC 33.3 RDW 13.1 Plt Count 227 MPV 9.2 Neutrophils % 89.0 H Lymphocytes % 4.6 L D Monocytes % 6.2 Eosinophils % 0.0 Basophils % 0.2 PT with INR INR Sodium 134 L Potassium 3.7 Chloride 97 L Carbon Dioxide 22 Anion Gap 15 BUN 9 Creatinine 0.8 Creat Clearance w eGFR Random Glucose 143 H Lactic Acid Calcium 8.2 L Phosphorus 3.0 Magnesium 1.8 Total Bilirubin AST ALT Alkaline Phosphatase Creatine Kinase Creatine Kinase Index CK-MB (CK-2) Troponin I 0.16 H Total Protein Albumin Urine Color Urine Appearance Urine pH Ur Specific [place] Urine Protein Urine Glucose (UA) Urine Ketones Urine Blood Urine Nitrite Urine Bilirubin Urine Urobilinogen Ur Leukocyte Esterase Urine WBC (Auto) Urine RBC (Auto) Ur Epithelial Cells Urine Mucus Opiates Screen Methadone Screen Barbiturate Screen Phencyclidine Screen Ur Amphetamines Screen MDMA (Ecstasy) Screen Benzodiazepines Screen Cocaine Screen U Marijuana (THC) Screen Active Medications Generic Name Dose Route Start Last Admin Trade Name Freq PRN Reason Stop Dose Admin Albuterol Sulfate 1 amp 01/30/18 03:17 Ventolin 0.083% Nebulizer Soln - NEB Q4H PRN SHORT OF BREATH/WHEEZING Chlordiazepoxide HCl 50 mg 01/30/18 05:00 01/30/18 05:13 Librium - PO 01/30/18 23:01 50 mg [id number] JOSY Administration Chlordiazepoxide HCl 25 mg 01/31/18 05:00 Librium - PO 01/31/18 23:01 [id number] JOSY Chlordiazepoxide HCl 15 mg 02/01/18 05:00 Librium - PO 02/01/18 23:01 [id number] JOSY Chlordiazepoxide HCl 25 mg 01/30/18 03:09 Librium - PO 02/02/18 03:08 Q4H PRN WITHDRAWAL(CONT SUBST) Folic Acid 1 mg 01/30/18 10:00 Folic Acid - PO DAILY JOSY Folic Acid 1 mg/ Thiamine HCl 1,000 mls @ 125 mls/hr 01/30/18 03:30 01/30/18 03:49 100 mg/ Multivitamins/Minerals IVPB 01/30/18 11:29 Not Given 10 ml/ Sodium Chloride ONCE ONE Sodium Chloride 1,000 mls @ 100 mls/hr 01/30/18 03:15 01/30/18 04:01 Normal Saline - IV 100 mls/hr ASDIR JOSY Administration Prochlorperazine Edisylate 5 mg 01/30/18 03:13 Compazine Injection - IM Q4H PRN NAUSEA AND/OR VOMITING Thiamine HCl 100 mg 01/30/18 10:00 Vitamin B1 - PO DAILY JOSY No micro CXR 01/30: bullous findings with coarse changes. ill defined density by anterior aspect of third rib Carotid doppler 01/30 - Distal thickening of left/right carotid artery. Poor exam. EKG 01/29 : normal sinus with PAC's, t wave inversions v4-v6, QT prolongation Qtc >500ms EKG 01/30 - Rate 76, NAD, QTC 499, ST elevation in v3, twI in v4/v5 ECHO 01/30 - EF 38%, moderately reduced LV function, global hypokinesis of LV; normal RV size and function; trace MR/TR ASSESSMENT/PLAN: 47 y/o homeless man with PMH of heroin, alcohol, cocaine, marijuana dependence, asthma, anxiety, depression, and insomnia, brought in from [facility] d/t [facility]. Admitted to [facility] obs for r/o ACS and withdrawal. #Acute toxic metabolic encephalopathy - possible secondary to intoxication vs. cardiac event; troponins with no significant increase from 0.14->0.16 -> 0.10; EKG unremarkable -trend trops; could be secondary to CPR -Serial ekgs -orthostatics -cardiac monitoring -Echo w/ global hypokinesis of LV -carotid doppler with no significant stenosis -Consider CT head - librium protocol - Utox + for cocaine #Alcohol/heroin/cocaine withdrawal - received one dose of methadone, librium in AM -CIWA score 15, COWS -Detox team consulted, recs appreciated -librium protocol -zofran q4h PRN for nausea/vomiting -Thiamine 100mg PO qd, Folic acid 1mg PO qd - Ordered for repeat banana bag -IVFs #UTI/leukocytosis - UA: 2+ leuk esterase, 85 WBCs -Rocephin 1g qD for 3 days -F/u urine cx -flu swab negative #Qt prolongation -Avoid QT prolonging agents - serial ekgs #Abnormal CXR - bullous dz, suspicious density -pt refused CT chest - will require outpt f/u #Asthma -Albuterol q4h PRN for SOB/wheezing #F/E/N NS 100 cc/hr daily bmps Regular diet #PPX SCDs Early ambulation #Dispo tele-obs Plan discussed with attending, Dr. Bryant Rey, PGY1 Visit type - Emergency Visit Emergency Visit: Yes ED Registration Date: 01/30/18 Care time: The patient presented to the Emergency Department on the above date and was hospitalized for further evaluation of their emergent condition. - New Patient This patient is new to me today: Yes Date on this admission: 01/30/18 - Critical Care Critical Care patient: No
[2018-01-30] MEDS ORDERED: FOLIC ACID 1 MG TABLET (FP) PO SCH (10:00)
[2018-01-30] MEDS ORDERED: THIAMINE HCL 100 MG TABLET (FP) PO SCH (10:00)
--- NOTE | 2018-01-30 14:07 | MSN ---
Progress Note (SOAP) - Subjective Chief Complaint: Acute toxic encephalopathy History of Present Illness: Natalia Mei is a 47y/o male with a PMHx of asthma, anxiety, depression, insomnia, and polysubstance abuse admitted to [facility] after having an episode of unresponsiveness at [facility] where he was admitted on for detox. Patient has a history of substance abuse of heroin (inhaled), cocaine (smoked), marijuana (smoked), alcohol 6 pack per day plus 2 pints of liquour, 20 pack year smoking history. - Current Medications Current Medications: Active Medications Albuterol Sulfate (Ventolin 0.083% Nebulizer Soln -) 1 amp NEB Q4H PRN PRN Reason: SHORT OF BREATH/WHEEZING Chlordiazepoxide HCl (Librium -) 50 mg PO [id number] [facility] Stop: 01/30/18 23:01 Last Admin: 01/30/18 11:47 Dose: 50 mg Chlordiazepoxide HCl (Librium -) 25 mg PO [id number] [facility] Stop: 01/31/18 23:01 Chlordiazepoxide HCl (Librium -) 15 mg PO [id number] [facility] Stop: 02/01/18 23:01 Chlordiazepoxide HCl (Librium -) 25 mg PO Q4H PRN PRN Reason: WITHDRAWAL(CONT SUBST) Stop: 02/02/18 03:08 Folic Acid (Folic Acid -) 1 mg PO DAILY [facility] Last Admin: 01/30/18 10:05 Dose: 1 mg Sodium Chloride (Normal Saline -) 1,000 mls @ 100 mls/hr IV ASDIR [facility] Last Admin: 01/30/18 04:01 Dose: 100 mls/hr Folic Acid 1 mg/ Thiamine HCl 100 mg/ Multivitamins/Minerals 10 ml/ Sodium Chloride 1,000 mls @ 125 mls/hr IVPB ONCE ONE Stop: 01/30/18 21:02 Prochlorperazine Edisylate (Compazine Injection -) 5 mg IM Q4H PRN PRN Reason: NAUSEA AND/OR VOMITING Thiamine HCl (Vitamin B1 -) 100 mg PO DAILY [facility] Last Admin: 01/30/18 10:05 Dose: 100 mg - Objective Vital Signs: Vital Signs Temperature 98.0 F 01/30/18 13:24 Pulse Rate 75 01/30/18 13:24 Respiratory Rate 20 01/30/18 13:24 Blood Pressure 127/65 01/30/18 13:24 O2 Sat by Pulse Oximetry (%) 97 01/30/18 13:24 Constitutional: Yes: Well Nourished, Anxious, Moderate Distress Eyes: Yes: WNL, Conjunctiva Clear, EOM Intact, PERRL HENT: Yes: WNL, Atraumatic, Normocephalic Neck: Yes: WNL, Supple, Trachea Midline Cardiovascular: Yes: WNL, Tachycardia, S1, S2 Respiratory: Yes: Regular, Wheezes (bilaterally) Gastrointestinal: Yes: WNL, Normal Bowel Sounds, Soft Peripheral Pulses WNL: Yes Peripheral Pulses: Left Radial: 2+, Right Radial: 2+, Left Doralis Pedis: 2+, Right Dorsalis Pedis: 2+, Left Femoral: 2+, Right Femoral: 2+ Edema: No Integumentary: Yes: WNL Neurological: Yes: WNL, Alert, Oriented Psychiatric: Yes: Alert, Oriented, Agitated (demanding methadone) Labs Lab Results: CBC, BMP 01/30/18 06:29 01/30/18 06:29 Problem List - Problems (1) Altered mental state Code(s): R41.82 - ALTERED MENTAL STATUS, UNSPECIFIED Qualifiers: Altered mental status type: disorientation Qualified Code(s): R41.0 - Disorientation, unspecified (2) Alcohol dependence with uncomplicated withdrawal Code(s): F10.230 - ALCOHOL DEPENDENCE WITH WITHDRAWAL, UNCOMPLICATED (3) Cannabis dependence Code(s): F12.20 - CANNABIS DEPENDENCE, UNCOMPLICATED (4) Cocaine dependence Code(s): F14.20 - COCAINE DEPENDENCE, UNCOMPLICATED (5) Opioid dependence with withdrawal Code(s): F11.23 - OPIOID DEPENDENCE WITH WITHDRAWAL Assessment/Plan Natalia Mei is a 47 y/o male admitted to [facility] after having an episode of nonresponsiveness at [facility] where he was admitted on for detox. Patient became unresponsive
--- NOTE | 2018-01-30 14:26 | MSN ---
Progress Note (SOAP) - Subjective Chief Complaint: Acute toxic encephalopathy History of Present Illness: Natalia Mei is a 47 y/o male with a PMHx of asthma, anxiety, depression, insomnia, polysubstance abuse of heroin(inhaled), cocaine(smoked), marijuana( smoked), alcohol, cigarettes who was admitted to [facility] from [facility] after having an episode of unresponsiveness when he was unable to be woken and a weak pulse was felt. Staff at [facility] initiated chest compressions and after 2 compression the patient woke up. Patient was transferred to the [facility] for further evaluation. In the ED, the patient reported that he was nauseous, had myalgias, fatigue, chills, and tremors. Patient denied sob, cp, headaches, blurry vision, dizziness. Patient reported that his last drug use was on 01/29. In the ED, the patient was given Librium 50mg, methadone 5mg, thiamine, folic acid, compazine. EKG showed T wave inversions in leads V4-V6 and QT prolongation. CXR showed bullous changes in the left lung and density in the R lung. Troponins were elevated at 0.14 and trended at 0.16 and 0.10. Patient had an elevated WBC at 15.4 and later at 17.8. Toxicology was positive for cocaine. UA was positive for WBC and LE in the urine. Patient was given a one time dose of ceftriaxone. Patient was seen and examined in the ED at the bedside. Patient was alert and oriented x3 and was agitated asking for his methadone. Patient was refusing testing and was increasingly agitated throughout the interview. Patient denied chest pain, sob, headaches, blurry vision, dizziness, arm pain, abdominal pain, leg pain, swelling, fever, diaphoresis, urinary frequency, urgency, pain with urination. Patient did endorse myalgias, feelings of tremulousness. Patient denied nausea which he stated was better after his dose of compazine. - Current Medications Current Medications: Active Medications Albuterol Sulfate (Ventolin 0.083% Nebulizer Soln -) 1 amp NEB Q4H PRN PRN Reason: SHORT OF BREATH/WHEEZING Chlordiazepoxide HCl (Librium -) 50 mg PO [id number] JOSY Stop: 01/30/18 23:01 Last Admin: 01/30/18 11:47 Dose: 50 mg Chlordiazepoxide HCl (Librium -) 25 mg PO [id number] [facility] Stop: 01/31/18 23:01 Chlordiazepoxide HCl (Librium -) 15 mg PO [id number] [facility] Stop: 02/01/18 23:01 Chlordiazepoxide HCl (Librium -) 25 mg PO Q4H PRN PRN Reason: WITHDRAWAL(CONT SUBST) Stop: 02/02/18 03:08 Folic Acid (Folic Acid -) 1 mg PO DAILY [facility] Last Admin: 01/30/18 10:05 Dose: 1 mg Sodium Chloride (Normal Saline -) 1,000 mls @ 100 mls/hr IV ASDIR [facility] Last Admin: 01/30/18 04:01 Dose: 100 mls/hr Folic Acid 1 mg/ Thiamine HCl 100 mg/ Multivitamins/Minerals 10 ml/ Sodium Chloride 1,000 mls @ 125 mls/hr IVPB ONCE ONE Stop: 01/30/18 21:02 Prochlorperazine Edisylate (Compazine Injection -) 5 mg IM Q4H PRN PRN Reason: NAUSEA AND/OR VOMITING Thiamine HCl (Vitamin B1 -) 100 mg PO DAILY [facility] Last Admin: 01/30/18 10:05 Dose: 100 mg - Objective Vital Signs: Vital Signs Temperature 98.0 F 01/30/18 13:24 Pulse Rate 75 01/30/18 13:24 Respiratory Rate 20 01/30/18 13:24 Blood Pressure 127/65 01/30/18 13:24 O2 Sat by Pulse Oximetry (%) 97 01/30/18 13:24 Constitutional: Yes: Well Nourished, Anxious, Moderate Distress (patient demanding medications and refusing testing) Eyes: Yes: WNL, Conjunctiva Clear, EOM Intact, PERRL HENT: Yes: WNL, Atraumatic, Normocephalic Neck: Yes: WNL, Supple, Trachea Midline Cardiovascular: Yes: WNL, Tachycardia, S1, S2 Respiratory: Yes: Regular, Wheezes (bilateral inspiratory and expiratory wheezes ) Gastrointestinal: Yes: WNL, Normal Bowel Sounds, Soft Extremities: Yes: WNL Peripheral Pulses WNL: Yes Peripheral Pulses: Left Radial: 2+, Right Radial: 2+, Left Doralis Pedis: 2+, Right Dorsalis Pedis: 2+, Left Femoral: 2+, Right Femoral: 2+ Edema: No Integumentary: Yes: WNL Neurological: Yes: WNL, Alert, Oriented ...Motor Strength: Yes: WNL Psychiatric: Yes: WNL, Alert, Oriented, Agitated Labs Lab Results: CBC, BMP 01/30/18 06:29 01/30/18 06:29 Problem List - Problems (1) Altered mental state Code(s): R41.82 - ALTERED MENTAL STATUS, UNSPECIFIED Qualifiers: Altered mental status type: disorientation Qualified Code(s): R41.0 - Disorientation, unspecified (2) Alcohol dependence with uncomplicated withdrawal Code(s): F10.230 - ALCOHOL DEPENDENCE WITH WITHDRAWAL, UNCOMPLICATED (3) Cannabis dependence Code(s): F12.20 - CANNABIS DEPENDENCE, UNCOMPLICATED (4) Cocaine dependence Code(s): F14.20 - COCAINE DEPENDENCE, UNCOMPLICATED (5) Opioid dependence with withdrawal Code(s): F11.23 - OPIOID DEPENDENCE WITH WITHDRAWAL Assessment/Plan Patient is a 47y/o male with a PMHx of anxiety, asthma, depression, insomnia, and polysubstance abuse who presented after an episode of unresponsiveness which required 2 chest compressions during his stay for detox at the [facility]. Patient transferred to [facility] for evaluation and management. Plan: Acute Toxic Encephalopathy - Cardiac workup ordered - EKG showed T wave inversions in V4-V6, prolonged QT segment - CXR showed bullous finding in the left lung and density in the R lung around the third drib - Troponins trended at 0.14, 0.16, 0.10. - WBC elevated at 15.4 and 17.8 - Toxicology positive for cocaine - Echocardiogram ordered - Carotid U/S showed mild thickening in left carotid artery and small plaque in right bulb with no significant stenosis - Flu swab ordered Alcohol Withdrawal - Dr. Mcintosh consulted - Librium 50mg administered, tapered - Thiamine and folic acid Opiate Withdrawal - Dr. Mcintosh consulted - Methadone 5mg administered, pending dosing per detox consult UTI - UA + for LE, WBC - Cultures pending - One dose ceftriaxone given in ED - Ceftriaxone continued Nausea - Compazine 4mg IM q4h prn Possible Lung Mass - CXR showed R lung density around 3rd rib - Patient refused CT scan Asthma - albuterol q4h prn FEN - Normal saline - Thiamine, folic acid DVT PPx - SCD's on Disposition - Patient on telemetry, continue to monitor
--- NOTE | 2018-01-30 15:03 | CONSULT ---
Consult Detox [facility] Reason for Current Admission/Consult: substance use Referred by:: tianna miranda - History History of Present Illness: 47 y/o homeless M with PMHx heroin, alcohol, cocaine, marijuana use disorder, severe, asthma, anxiety, depression, and insomnia, brought in from [facility] with [facility]. While there last evening, he was found to be "unresponsive" with a thready pulse, so chest compressions were initiated. As per staff, two compressions were completed when patient had become responsive. However, as per pt, no compressions were done and he was "just sleeping." Pt is currently homeless and has lived on the streets for a few years. He states that his last detox was approx two years ago. He has used heroin for fifteen years- a "bundle" a day. Has drank a six-pack of beers along with hard liquor daily for the past twenty years. States that he has also used cocaine and marijuana "frequently." now c/o opioid withdrawal sx, requesting methadone detox to be initiated Heroin Route: Inhalation Frequency: Daily Amount used: 10 BAGS Age of first use: 24 Date of Last Use: 01/28/18 Alcohol Route: Oral Frequency: Daily Amount used: 2 PINT S OF DEX/6 PACKS OF 16 OZS OF BEER Age of first use: 13 Date of Last Use: 01/29/18 Cocaine Route: Smoking Frequency: Daily Amount used: 50$ Age of first use: 24 Date of Last Use: 01/28/18 Marijuana/Hashish Route: Smoking Frequency: 3-6 times per week Amount used: 20$ Age of first use: 24 Date of Last Use: 01/28/18 - History Source History Provided By: Patient, Medical Record, Caregiver Limitations to Obtaining History: No Limitations - Alcohol/Substance Use Hx Alcohol Use: Yes Hx Substance Use: Yes Hx Substance Use Treatment: Yes (project [employer]) - Current Drug/Alcohol Use Alcohol Amount used: 1-2 pints - Significant Medical Findings: 47 yo m w h/o polysubstance use transferred from [facility] w [facility] after beign admitted for alcohol and heroin detox, now a and ox3, in opioid withdrawal. abnormal lfts, prolonged qtc imporving. COWS - Scale Resting Pulse: 1= MT 81-100 Sweatin= Chills/Flushing Restless Observation: 1= Difficult to Sit Still Pupil Size: 1= Pupils >than Normal Bone or Joint Aches: 2= Severe Diffuse Aches Runny Nose/ Eye Tearin= Nasal Congestion GI Upset > 30mins: 2= Nausea/Diarrhea Tremor Observation: 0= None Yawning Observation: 1= 1-2x During Session Anxiety or Irritability: 2=Irritable/Anxious Goose Flesh Skin: 3=Piloerection COWS Score: 15 CIWA Score - CIWA Score Nausea/Vomitin-Mild Nausea/No Vomiting Muscle Tremors: None Anxiety: 3 Agitation: 3 Paroxysmal Sweats: 1-Minimal Palms Moist Orientation: 0-Oriented Tacttile Disturbances: 0-None Auditory Disturbances: 0-None Visual Disturbances: 0-None Headache: 1-Very Mild CIWA-Ar Total Score: 9 Assessment Plan - Diagnosis (1) Alcohol dependence with uncomplicated withdrawal Status: Acute (2) Asthma Status: Acute (3) Cannabis dependence Status: Acute (4) Cocaine dependence Status: Acute (5) Insomnia secondary to depression with anxiety Status: Acute (6) Nicotine dependence Status: Acute (7) Opioid dependence with withdrawal Status: Acute (8) Weight loss Status: Acute - Plan Plan: chart, imaging, labs reviewed. pateint examined andhisotry taken. discussed care with medical team. REcommend: 1. fluids, vitamins as ordered. 2. symptomatic relief of withdrwal 3. libirum detox for alcohol withdrawal as ordered. methadone detox for heorin use ordered. 4. refusing nicotine patch and gum 4. may return to [facility] to complete detox or start rehab when medicallys table. Tito Mcintosh MD [phone] - Medication Detox Regimen/Protocol: Methadone/Librium
--- NOTE | 2018-01-30 15:54 | PN ---
Teaching Attending Note Name of Resident: Dann Rey ATTENDING PHYSICIAN STATEMENT I saw and evaluated the patient. I reviewed the resident's note and discussed the case with the resident. I agree with the resident's findings and plan as documented. SUBJECTIVE:c/o diffuse myalgia, agitation, chills and sensory hallucinations. very irate and requesting methadone. denies CP, cough, SOB. snorts substance. denies IVDA OBJECTIVE: Last Vital Signs Temp Pulse Resp BP Pulse Ox 98.7 F 85 18 112/56 97 01/30/18 14:58 01/30/18 14:58 01/30/18 14:58 01/30/18 14:58 01/30/18 13:24 General agitated HEENT dilated pupils, poor dentition CV S1 S2 tachy no chest wall tenderness Lungs corase breath sounds, diffuse rhonchi Abdomen soft NT/ND extremities no pedal edema ASSESSMENT AND PLAN: 47yo M with PMH continuous polysubstance abuse(cocaine/heroin/ETOH) sent from [facility] due to unresponsiveness 1. Acute toxic metabolic encephalopathy- reported that CPR was started at [facility] but "awoke" after 1st compression. concern for substance overdose vs arythmia. slight flat trend of tropnins. appears to be returned to baseline mental status. 2. Leukocytosis- given symptoms most likely due to withdrawals however risk factors for flu. would check flu swab. started on ceftriaxone day 1 for +UTI. asymptomatic but would treat. 3. Acute heroin/cocaine/etoh withdrawal- CIWA 16 and Cows 14. started on librium protocol. received methdone 5mg early this AM. however concern giving dose due to prolonged Qt. Detox consult. will wait for their evaluation and initiating of medication if safe to do so. give banana bag. start thiamine/ folate/MVI 4. Prolonged QTc- received methadone x1 dose at [facility]. repeat EKG shows improvement. would repeat in AM. monitor for improvement. avoid QT prolonging medications 5. hyponatremia- dehydration. IVF 6. CXR density- unclear density seen on CXR. CT ordered. pt refusing at this time 7. DVT ppx- hep sq
[2018-01-30] MEDS ORDERED: ONDANSETRON *ODT* 4 MG TABLET SL PRN (16:16)
[2018-01-30] MEDS: THIAMINE HCL 100 MG TABLET (FP) PO SCH (21:53)
[2018-01-31] MEDS: ALBUTEROL SO4 18 GM HFA INHALER IH PRN (02:50)
[2018-01-31] MEDS: chlordiazePOXIDE HCL 25 MG CAPSULE PO SCH ×4 (05:19→23:30)
[2018-01-31] MEDS: SODIUM CHLORIDE 1,000 ML IV SCH (05:19)
--- NOTE | 2018-01-31 05:44 | PN ---
Physical Exam: SUBJECTIVE: Patient seen and examined by me this AM - No major events overnight; afebrile, hemo stable; pt slept throughout night, less agitated after receiving methadone. Denies f/c/n/v/d, CP, sob, ab pain, back pain, peripheral edema, neuro symptoms. Still with mild [employer] cough. OBJECTIVE: Vital Signs Intake & Output 01/28/18 01/29/18 01/30/18 01/31/18 23:59 23:59 23:59 23:59 Intake Total 600 1200 Output Total 600 Balance 600 600 Weight 69.853 kg 69.853 kg Period Temp Pulse Resp BP Sys/Arambula Pulse Ox Last 24 Hr 97.4 F-99.6 F 62-102 18-24 112-147/56-78 96-100 GENERAL: Middle aged man, somnolent, A&&Ox2 HEAD: Normal with no signs of trauma. EYES: Extraocular movements intact, sclera anicteric, conjunctiva clear. No ptosis. ENT: Poor dentition. Ears normal, nares patent, oropharynx clear without exudates, moist mucous membranes. NECK: Trachea midline, full range of motion, supple. LUNGS: Diffuse rhonchi, expiratory wheezing noted in both lung millan HEART: RRR, S1, S2 without murmur, rub or gallop. ABDOMEN: Soft, NT, ND, normoactive bowel sounds EXTREMITIES: BL stasis dematitis, 2+ pulses, warm, well-perfused, no edema. NEUROLOGICAL: Cranial nerves II through XII grossly intact. Normal speech, gait not observed. PSYCH: Pleasant, denies hallucinations SKIN: Warm, dry, normal turgor Laboratory Results - last 24 hr CBC, BMP 01/31/18 06:15 01/31/18 06:15 01/30/18 06:29 01/30/18 06:29 01/30/18 01/30/18 01/30/18 06:29 06:29 06:29 WBC 17.8 H RBC 4.12 Hgb 12.5 Hct 37.5 MCV 91.1 MCH 30.4 MCHC 33.3 RDW 13.1 Plt Count 227 MPV 9.2 Neutrophils % 89.0 H Lymphocytes % 4.6 L D Monocytes % 6.2 Eosinophils % 0.0 Basophils % 0.2 Sodium 134 L Potassium 3.7 Chloride 97 L Carbon Dioxide 22 Anion Gap 15 BUN 9 Creatinine 0.8 Random Glucose 143 H Calcium 8.2 L Phosphorus 3.0 Magnesium 1.8 Troponin I 0.16 H 01/30/18 12:38 WBC RBC Hgb Hct MCV MCH MCHC RDW Plt Count MPV Neutrophils % Lymphocytes % Monocytes % Eosinophils % Basophils % Sodium Potassium Chloride Carbon Dioxide Anion Gap BUN Creatinine Random Glucose Calcium Phosphorus Magnesium Troponin I 0.10 H D Active Medications Generic Name Dose Route Start Last Admin Trade Name Freq PRN Reason Stop Dose Admin Albuterol Sulfate 1 amp 01/30/18 03:17 Ventolin 0.083% Nebulizer Soln - NEB Q4H PRN SHORT OF BREATH/WHEEZING Albuterol Sulfate 2 puff 01/30/18 16:41 01/31/18 02:50 Ventolin Hfa Inhaler - IH 2 puff Q4H PRN Administration SHORT OF BREATH/WHEEZING Chlordiazepoxide HCl 25 mg 01/31/18 05:00 01/31/18 05:19 Librium - PO 01/31/18 23:01 25 mg [id number] JOSY Administration Chlordiazepoxide HCl 15 mg 02/01/18 05:00 Librium - PO 02/01/18 23:01 [id number] JOSY Chlordiazepoxide HCl 25 mg 01/30/18 03:09 Librium - PO 02/02/18 03:08 Q4H PRN WITHDRAWAL(CONT SUBST) Sodium Chloride 1,000 mls @ 100 mls/hr 01/30/18 03:15 01/31/18 05:19 Normal Saline - IV 100 mls/hr ASDIR JOSY Administration Ceftriaxone Sodium 1 gm/ 50 mls @ 100 mls/hr 01/31/18 10:00 Dextrose IVPB DAILY JOSY Methadone HCl 15 mg 02/01/18 10:00 Dolophine - PO 02/01/18 23:59 ONCE ONE Methadone HCl 15 mg 02/02/18 10:00 Dolophine - PO 02/02/18 23:59 ONCE ONE Methadone HCl 20 mg 01/31/18 10:00 Dolophine - PO 01/31/18 10:01 ONCE ONE Methadone HCl 10 mg 02/03/18 10:00 Dolophine - PO 02/03/18 10:01 ONCE ONE Ondansetron HCl 4 mg 01/30/18 16:16 Zofran Odt - SL Q6H PRN NAUSEA AND/OR VOMITING Multivit/Folic Acid/Iron 1 tab 01/31/18 10:00 Vitamins (Sjr) - PO DAILY JOSY Thiamine HCl 100 mg 01/30/18 22:00 01/30/18 21:53 Vitamin B1 - PO 100 mg HS JOSY Administration No micro CXR 01/30: bullous findings with coarse changes. ill defined density by anterior aspect of third rib Carotid doppler 01/30 - Distal thickening of left/right carotid artery. Poor exam. EKG 01/29 : normal sinus with PAC's, t wave inversions v4-v6, QT prolongation Qtc >500ms EKG 01/30 - Rate 76, NAD, QTC 499, ST elevation in v3, twI in v4/v5 ECHO 01/30 - EF 38%, moderately reduced LV function, global hypokinesis of LV; normal RV size and function; trace MR/TR ASSESSMENT/PLAN: 47 y/o homeless man with PMH of heroin, alcohol, cocaine, marijuana dependence, asthma, anxiety, depression, and insomnia, brought in from [facility] d/t [facility]. Admitted to tele obs for r/o ACS and withdrawal. #Acute toxic metabolic encephalopathy - possible secondary to intoxication vs. cardiac event; now resolved -Trend MS -Consider CT head if clinically worsens #Cardiomyopathy -troponins with no significant increase from 0.14->0.16 -> 0.10 ; EKG unremarkable -cardiac monitoring -Echo w/ global hypokinesis of LV - Pt counseled at length on need for stress test for further work-up of cardiac dz, however Pt refused stress test today; will require outpt work-up - started on lisinopril, lipitor and asa #Alcohol/heroin/cocaine withdrawal - on methadone, librium taper -trend CIWA, COWS; 8 + 8 today -Detox team consulted, recs appreciated -librium protocol -zofran q4h PRN for nausea/vomiting -Thiamine 100mg PO qd, Folic acid 1mg PO qd -IVFs #UTI/leukocytosis - UA: 2+ leuk esterase, 85 WBCs -Rocephin 1g qD for 3 days. day 2 -F/u urine cx -flu swab negative #Qt prolongation - qtc 457 on repeat ekg -Avoid QT prolonging agents - serial ekgs #Abnormal CXR - bullous dz, suspicious density -pt refused CT chest - will require outpt f/u #Asthma -Albuterol q4h PRN for SOB/wheezing #F/E/N NS 100 cc/hr daily bmps Regular diet #PPX SCDs HSQ #Dispo- initial plan for d/c to [facility] for remainder of detox, however pt unstable with PT. Only able to ambulate a few feet. Will need to finish detox in house. Plan discussed with attending, Dr. Bryant Rey, PGY1 Visit type - Emergency Visit Emergency Visit: Yes ED Registration Date: 01/30/18 Care time: The patient presented to the Emergency Department on the above date and was hospitalized for further evaluation of their emergent condition. - New Patient This patient is new to me today: No - Critical Care Critical Care patient: No
[2018-01-31 06:37] LABS: HEMATOCRIT 42.7 % (35.4-49); HEMOGLOBIN 13.9 GM/dL (11.7-16.9); MCH 29.7 pg (25.7-33.7); MCHC 32.6 g/dl (32.0-35.9); MEAN CELL VOLUME 90.9 fl (80-96); PLATELET COUNT 260 K/MM3 (134-434); RBC 4.69 M/mm3 (4.00-5.60); RDW 12.6 % (11.9-15.9); WHITE BLOOD COUNT 12.4 K/mm3 (4.0-10.0)
[2018-01-31 07:10] LABS: ANION GAP 10 (8-16); BLOOD UREA NITROGEN 10 mg/dL (7-18); CALCIUM 8.3 mg/dL (8.5-10.1); CHLORIDE 99 mmol/L (98-107); CO2 26 mmol/L (21-32); CREATININE 0.8 mg/dL (0.7-1.3); GLUCOSE,RANDOM 122 mg/dL (74-106); POTASSIUM 3.5 mmol/L (3.5-5.1); SODIUM 135 mmol/L (136-145)
[2018-01-31] MEDS ORDERED: ZOLPIDEM TARTRATE 5 MG TABLET PO PRN (09:12)
--- NOTE | 2018-01-31 09:14 | PN ---
[facility] Progress Note (SOAP) Subjective: c/o opioid withdrawal sx Objective: 01/31/18 09:13 Vital Signs - 24 hr 01/30/18 01/30/18 01/30/18 13:24 14:58 15:00 Temperature 98.0 F 98.7 F 98.4 F Pulse Rate 85 78 Pulse Rate [ 75 Left Radial] Respiratory 20 18 24 Rate Blood Pressure 112/56 116/78 Blood Pressure 127/65 [Left Arm] O2 Sat by Pulse 97 96 Oximetry (%) 01/30/18 01/30/18 01/31/18 17:00 21:00 02:00 Temperature 98.5 F 99.6 F 97.5 F L Pulse Rate 79 92 H 62 Pulse Rate [ Left Radial] Respiratory 18 18 20 Rate Blood Pressure 141/77 140/77 140/76 Blood Pressure [Left Arm] O2 Sat by Pulse 97 Oximetry (%) 01/31/18 01/31/18 05:26 08:26 Temperature 97.4 F L 98.1 F Pulse Rate 102 H 91 H Pulse Rate [ Left Radial] Respiratory 20 16 Rate Blood Pressure 134/75 144/92 Blood Pressure [Left Arm] O2 Sat by Pulse Oximetry (%) a and ox3, no sedation noted, appears uncomfortable, tachycardic, hypertensive Assessment: 01/31/18 09:13 OUD, severe - cont methadone detox, symptomatic relief of withdrawal w clonidine scheduled and flexeril, prn selwyn [id number] for sleep, may be transferred to [facility] rehab after he completes detox and is medically stable , must check if bed available and clear insurance first. d/w social work
--- NOTE | 2018-01-31 09:43 | EKG ---
Test Reason : Blood Pressure : / mmHG Vent. Rate : 086 BPM Atrial Rate : 086 BPM P-R Int : 128 ms QRS Dur : 088 ms QT Int : 382 ms P-R-T Axes : 078 101 064 degrees QTc Int : 457 ms NORMAL SINUS RHYTHM RIGHTWARD AXIS WHEN COMPARED WITH ECG OF 30-JAN-2018 03:26, T WAVE INVERSION NO LONGER EVIDENT IN ANTERIOR LEADS Confirmed by TOSHIA LACEY, JENY ([id number]) on 01/31/2018 9:42:39 AM Referred By: Confirmed By:JENY POPE MD
[2018-01-31] MEDS ORDERED: DEXTROSE 5%-WATER - 50 ML IVPB ONE (09:45)
[2018-01-31] MEDS ORDERED: cefTRIAXone SODIUM 1 GM VIAL ONE (09:45)
[2018-01-31] MEDS ORDERED: METHADONE HCL 10 MG TABLET PO ONE (10:00)
[2018-01-31] MEDS: CEFTRIAXONE 1 GM in DEXTROSE 5%-WATER - 50 ML IVPB SCH (10:16)
[2018-01-31] MEDS: PRENATAL VITAMINS W/ FOLIC ACID TABLET (FP) PO SCH (11:11)
[2018-01-31] MEDS: cloNIDine HCL 0.1 MG TABLET PO SCH ×2 (11:11→21:06)
--- NOTE | 2018-01-31 11:27 | PN ---
Teaching Attending Note Name of Resident: Dann Rey ATTENDING PHYSICIAN STATEMENT I saw and evaluated the patient. I reviewed the resident's note and discussed the case with the resident. I agree with the resident's findings and plan as documented. SUBJECTIVE:continues to have some myalgias. feeling generalized weakness. denies CP, SOB< fever, chills, N/V/C/D states he has never felt CP or SOB on exertion. OBJECTIVE: Last Vital Signs Temp Pulse Resp BP Pulse Ox 98.1 F 91 H 16 144/92 97 01/31/18 08:26 01/31/18 08:26 01/31/18 08:26 01/31/18 08:26 01/31/18 08:00 General NAD HEENT poor dentition CV S1 S2 RRR no chest wall tenderness Lungs coarse breath sounds, diffuse rhonchi Abdomen soft NT/ND extremities no pedal edema ASSESSMENT AND PLAN: 47yo M with PMH continuous polysubstance abuse(cocaine/heroin/ETOH) sent from [facility] due to unresponsiveness 1. Acute toxic metabolic encephalopathy-now resolved. appears to be at baseline. flu swab negative 2. UTI- on ceftriaxone day 2. f/u Cx 3. Elevated troponin- echo showing moderately reduced LVSF, and moderate global hypokinesis of LV. recommended stress test to r/o ischemia. pt refusing. discussed in detail risks and benefits of proceeding with stress test. pt refused further testing. will start medications to optimize at this time. will hold betablocker due to cocaine use. start lisinopril 10mg, asa 81mg, lipitor 80mg. cardio consult 4. Acute heroin/cocaine/etoh withdrawal- CIWA 8 and Cows 8. on librium and methadone taper. not interested in inpatient rehab at this time. will give list for outpatient centers. detox specialist on board. on thiamine/folate/MVI 5. Prolonged QTc-now improved. repeat EKG Qtc 457. monitor while on methadone. avoid other prolonging medications. 6. hyponatremia- dehydration. cont IVF 7. CXR density- unclear density seen on CXR. CT ordered. pt refusing at this time 8. DVT ppx- hep sq 9. only able to walk several feet with PT. likely not a good candidate for [facility] to complete detox. pt wants to return there. will re-assess later today to see if improved. if not will complete detox at [facility].
--- NOTE | 2018-01-31 11:27 | MSN ---
Progress Note (SOAP) - Subjective Chief Complaint: Acute toxic encephalopathy History of Present Illness: Patient was seen and examined at the bedside. Patient underwent carotid doppler examination which showed no significant stenosis. Patient underwent echocardiogram which showed EF of 38% with significant LV dysfunction. Flu swab was negative. Urine culture was contaminated and will be repeated. Patient was seen by Dr. Mcintosh and started on methadone taper. Was given 20mg yesterday and to be given 20mg today, with decrease to 15mg tomorrow. Patient was also started on clonidine 0.1mg bid, Flexeril 5mg tid, and Ambien 10mg prn sleep as per Dr. Mcintosh. Patient was alert and oriented x3 and appeared agitated during examination. Patient denied chest pain, shortness of breath, headaches, dizziness, abdominal pain, fevers, chills, tremors, urinary frequency, urgency, dysuria. Patient endorsed myalgias which were better from yesterday and noted that nausea was improved. Patient noted that he was less agitated than yesterday. - Current Medications Current Medications: Active Medications Albuterol Sulfate (Ventolin 0.083% Nebulizer Soln -) 1 amp NEB Q4H PRN PRN Reason: SHORT OF BREATH/WHEEZING Albuterol Sulfate (Ventolin Hfa Inhaler -) 2 puff IH Q4H PRN PRN Reason: SHORT OF BREATH/WHEEZING Last Admin: 01/31/18 02:50 Dose: 2 puff Aspirin (Asa -) 81 mg PO DAILY [facility] Atorvastatin Calcium (Lipitor -) 10 mg PO HS [facility] Chlordiazepoxide HCl (Librium -) 25 mg PO [id number] [facility] Stop: 01/31/18 23:01 Last Admin: 01/31/18 11:11 Dose: 25 mg Chlordiazepoxide HCl (Librium -) 15 mg PO [id number] [facility] Stop: 02/01/18 23:01 Chlordiazepoxide HCl (Librium -) 25 mg PO Q4H PRN PRN Reason: WITHDRAWAL(CONT SUBST) Stop: 02/02/18 03:08 Clonidine (Catapres -) 0.1 mg PO BID [facility] Last Admin: 01/31/18 11:11 Dose: 0.1 mg Cyclobenzaprine HCl (Flexeril -) 5 mg PO TID [facility] Sodium Chloride (Normal Saline -) 1,000 mls @ 100 mls/hr IV ASDIR [facility] Last Admin: 01/31/18 05:19 Dose: 100 mls/hr Ceftriaxone Sodium 1 gm/ (Dextrose) 50 mls @ 100 mls/hr IVPB DAILY [facility] Last Admin: 01/31/18 10:16 Dose: 100 mls/hr Lisinopril (Prinivil) 5 mg PO DAILY [facility] Methadone HCl (Dolophine -) 15 mg PO ONCE ONE Stop: 02/01/18 23:59 Methadone HCl (Dolophine -) 15 mg PO ONCE ONE Stop: 02/02/18 23:59 Methadone HCl (Dolophine -) 10 mg PO ONCE ONE Stop: 02/03/18 10:01 Ondansetron HCl (Zofran Odt -) 4 mg SL Q6H PRN PRN Reason: NAUSEA AND/OR VOMITING Multivit/Folic Acid/Iron ( Vitamins (Sjr) -) 1 tab PO DAILY [facility] Last Admin: 01/31/18 11:11 Dose: 1 tab Thiamine HCl (Vitamin B1 -) 100 mg PO HS [facility] Last Admin: 01/30/18 21:53 Dose: 100 mg Zolpidem Tartrate (Ambien -) 10 mg PO HS PRN PRN Reason: INSOMNIA - Objective Vital Signs: Vital Signs Temperature 98.1 F 01/31/18 08:26 Pulse Rate 91 H 01/31/18 08:26 Respiratory Rate 16 01/31/18 08:26 Blood Pressure 144/92 01/31/18 08:26 O2 Sat by Pulse Oximetry (%) 97 01/31/18 08:00 Constitutional: Yes: Well Nourished, Anxious, Mild Distress Eyes: Yes: WNL, Conjunctiva Clear, EOM Intact, PERRL HENT: Yes: WNL, Atraumatic, Normocephalic, Other (mucous membranes dry, poor dentition) Neck: Yes: WNL, Supple, Trachea Midline Cardiovascular: Yes: Tachycardia, S1, S2, Other (regular rate) Respiratory: Yes: Other (coarse breath sounds) Gastrointestinal: Yes: WNL, Normal Bowel Sounds, Soft Extremities: Yes: WNL Integumentary: Yes: Venous Stasis Changes (venous stasis dermatitis) Neurological: Yes: WNL, Alert, Oriented ...Motor Strength: Yes: WNL Psychiatric: Yes: WNL, Alert, Oriented, Agitated Labs Lab Results: CBC, BMP 01/31/18 06:15 01/31/18 06:15 Problem List - Problems (1) Altered mental state Code(s): R41.82 - ALTERED MENTAL STATUS, UNSPECIFIED Qualifiers: Altered mental status type: somnolence Qualified Code(s): R40.0 - Somnolence (2) Alcohol dependence with uncomplicated withdrawal Code(s): F10.230 - ALCOHOL DEPENDENCE WITH WITHDRAWAL, UNCOMPLICATED (3) Cannabis dependence Code(s): F12.20 - CANNABIS DEPENDENCE, UNCOMPLICATED (4) Cocaine dependence Code(s): F14.20 - COCAINE DEPENDENCE, UNCOMPLICATED Qualifiers: Substance use status: in withdrawal Qualified Code(s): F14.23 - Cocaine dependence with withdrawal (5) Opioid dependence with withdrawal Code(s): F11.23 - OPIOID DEPENDENCE WITH WITHDRAWAL Assessment/Plan Patient is a 47y/o male with a PMHx of anxiety, asthma, depression, insomnia, and polysubstance abuse who presented after an episode of unresponsiveness which required 2 chest compressions during his stay for detox at the [facility]. Patient transferred to [facility] for evaluation and management. Plan: Acute Toxic Encephalopathy - Cardiac workup ordered - EKG showed T wave inversions in V4-V6, prolonged QT segment - Repeat EKG on 01/31 showed no T wave inversion in anterior leads and QT at 457 - CXR showed bullous finding in the left lung and density in the R lung around the third drib - Troponins trended at 0.14, 0.16, 0.10. - WBC elevated at 15.4 and 17.8, trended down to 12.4 on 01/31. Patient remained afebrile - Toxicology positive for cocaine - Flu swab was negative Heart Failure - Echocardiogram showed EF of 37.7% with significantly reduced LV function - Carotid U/S showed mild thickening in left carotid artery and small plaque in right bulb with no significant stenosis - Nuclear stress test was ordered, patient was refusing, will continue to monitor - lisinopril 5mg daily - aspirin 81mg daily - Lipitor 10mg daily Alcohol Withdrawal - Dr. Mcintosh consulted - Librium 50mg administered, tapered - Thiamine and folic acid - clonidine 0.1mg bid, Flexeril 5mg tid, ambien 10mg prn Opiate Withdrawal - Methadone 5mg administered, pending dosing per detox consult - Dr. Mcintosh recommended methadone taper, 20mg administered on 01/30 and 01/31, will be reduced to 15mg 02/01 - clonidine 0.1mg bid, Flexeril 5mg tid, ambien 10mg prn UTI - UA + for LE, WBC - Cultures pending, first culture contaminated, repeat cultures sent - One dose ceftriaxone given in ED - Ceftriaxone continued Nausea - Zofran 4mg q6h prn Possible Lung Mass - CXR showed R lung density around 3rd rib - Patient refused CT scan Asthma - albuterol q4h prn FEN - Normal saline - Thiamine, folic acid Disposition - Patient on telemetry, continue to monitor. Patient only walked 30ft with PT, unstable gait, likely to remain here for remainder of detox
--- NOTE | 2018-01-31 12:00 | CON.CARD ---
Consult Consult Specialty:: Cardiology Referred by:: Hospitalist Medicine Reason for Consultation:: Cardiomyopathy - History of Present Illness Chief Complaint: Loss of consciousness History of Present Illness: 47 to M with Pmhx of Polysubstance abuse (cocaine, marijuana, etoh, Heroin) who was at [facility] when he was found "unresponsive." As per pt. he was sleeping when CPR was started on him with 2 compressions, rhythm unknown. States he was aware of what happened. Denies any chest pain, pressure, or shortness of breath , palpitations, orthopnea, PND or LE edema. - History Source History Provided By: Medical Record Limitations to Obtaining History: Clinical Condition - Alcohol/Substance Use Hx Alcohol Use: Yes - Smoking History Smoking history: Current every day smoker Have you smoked in the past 12 months: Yes Aproximately how many cigarettes per day: 20 Home Medications - Allergies Allergies/Adverse Reactions: Allergies Allergy/AdvReac Type Severity Reaction Status Date / Time No Known Allergies Allergy Verified 01/29/18 19:21 - Home Medications Home Medications: Ambulatory Orders NK [No Known Home Medication] 01/29/18 Vital Signs: Vital Signs Temperature 98.1 F 01/31/18 08:26 Pulse Rate 91 H 01/31/18 08:26 Respiratory Rate 16 01/31/18 08:26 Blood Pressure 144/92 01/31/18 08:26 O2 Sat by Pulse Oximetry (%) 97 01/31/18 08:00 Constitutional: Yes: No Distress, Calm, Thin Neck: Yes: Supple Respiratory: Yes: Regular, CTA Bilaterally Gastrointestinal: Yes: Normal Bowel Sounds, Soft Cardiovascular: Yes: Regular Rate and Rhythm JVD: No Carotid Bruit: No Heart Sounds: Yes: S1, S2 Edema: No - Other Data Labs, Other Data: CBC, BMP 01/31/18 06:15 01/31/18 06:15 INR, PTT INR 1.19 (0.82-1.09) H 01/29/18 23:50 Troponin, BNP 01/30/18 12:38 Troponin I 0.10 H D Troponin, BNP 01/30/18 12:38 Troponin I 0.10 H D NSR @ 86 RAD Echo: Report Reviewed Ejection Fraction %: LVEF > or = 40 % Imaging - Results Chest X-ray: Report Reviewed (Bullous changes) Ultrasound: Report Reviewed (Uncooperative with carotid ultrasound) Problem List - Problems (1) Cardiomyopathy Code(s): I42.9 - CARDIOMYOPATHY, UNSPECIFIED Qualifiers: Cardiomyopathy type: due to drug Qualified Code(s): I42.7 - Cardiomyopathy due to drug and external agent (2) Toxic metabolic encephalopathy Code(s): G92 - TOXIC ENCEPHALOPATHY (3) Altered mental state Code(s): R41.82 - ALTERED MENTAL STATUS, UNSPECIFIED Qualifiers: Altered mental status type: somnolence Qualified Code(s): R40.0 - Somnolence (4) Alcohol dependence with uncomplicated withdrawal Code(s): F10.230 - ALCOHOL DEPENDENCE WITH WITHDRAWAL, UNCOMPLICATED (5) Cocaine dependence Code(s): F14.20 - COCAINE DEPENDENCE, UNCOMPLICATED Qualifiers: Substance use status: in withdrawal Qualified Code(s): F14.23 - Cocaine dependence with withdrawal (6) Opioid dependence with withdrawal Code(s): F11.23 - OPIOID DEPENDENCE WITH WITHDRAWAL Assessment/Plan 01/30/2018 Echo: Normal LV size with moderate decrease LV fxn, tr MR, tr TR 1. Acute toxic metabolic encephalopathy-now resolved. appears to be at baseline 2. Cardiomyopathy (moderate decreased LV fxn) likely due to toxic behaviors, euvolemic 3. Polysubstance abuse(cocaine/heroin/ETOH) 4. UTI- on ceftriaxone day 2. f/u Cx 5. Elevated troponin referable to demand ischemia P:1. Declines stress testing to r/o ischemia, trops downtrending 2. Started on lisinopril 10 qd, ASA 81 qd, Lipitor 10 qd, not on beta cristhian due to active cocaine abuse, wean off clonidine 3. Remains on librium and methadone taper 4. Counselled on abstinence from toxic behaviors, refer back to [facility] for continuation of inpatient detox 5. Complete abx course, thank you for consultative opportunity
[2018-01-31] MEDS: ASPIRIN 81 MG CHEWABLE TABLETS PO SCH (13:17)
[2018-01-31] MEDS: LISINOPRIL 5 MG TABLET (FP) PO SCH (13:17)
[2018-01-31] MEDS: CYCLOBENZAPRINE HCL 10 MG TABLET (FP) PO SCH ×2 (15:00→21:06)
[2018-01-31] MEDS: THIAMINE HCL 100 MG TABLET (FP) PO SCH (21:05)
[2018-01-31] MEDS ORDERED: ATORVASTATIN CA 10 MG TABLET (FP) PO SCH (22:00)
[2018-02-01] MEDS: SODIUM CHLORIDE 1,000 ML IV SCH (03:01)
[2018-02-01] MEDS: CYCLOBENZAPRINE HCL 10 MG TABLET (FP) PO SCH (05:58)
[2018-02-01] MEDS: chlordiazePOXIDE 5 MG CAPSULE PO SCH ×4 (05:58→23:31)
[2018-02-01 07:52] LABS: HEMATOCRIT 38.6 % (35.4-49); HEMOGLOBIN 12.5 GM/dL (11.7-16.9); MCH 29.9 pg (25.7-33.7); MCHC 32.5 g/dl (32.0-35.9); MEAN CELL VOLUME 92.2 fl (80-96); MEAN PLT VOLUME 8.9 fl (7.5-11.1); PLATELET COUNT 237 K/MM3 (134-434); RBC 4.19 M/mm3 (4.00-5.60); RDW 12.9 % (11.9-15.9); WHITE BLOOD COUNT 9.3 K/mm3 (4.0-10.0)
[2018-02-01 08:47] LABS: CHLORIDE 103 mmol/L (98-107); POTASSIUM 3.6 mmol/L (3.5-5.1); SODIUM 139 mmol/L (136-145)
[2018-02-01 08:53] LABS: ANION GAP 11 (8-16); BLOOD UREA NITROGEN 11 mg/dL (7-18); CO2 25 mmol/L (21-32); CREATININE 0.8 mg/dL (0.7-1.3); GLUCOSE,RANDOM 103 mg/dL (74-106)
[2018-02-01] MEDS: cloNIDine HCL 0.1 MG TABLET PO SCH (09:24)
[2018-02-01] MEDS: ASPIRIN 81 MG CHEWABLE TABLETS PO SCH (09:24)
[2018-02-01] MEDS: PRENATAL VITAMINS W/ FOLIC ACID TABLET (FP) PO SCH (09:24)
[2018-02-01] MEDS: LISINOPRIL 5 MG TABLET (FP) PO SCH (09:24)
[2018-02-01] MEDS ORDERED: cefTRIAXone SODIUM 1 GM VIAL ONE (09:32)
[2018-02-01] MEDS ORDERED: DEXTROSE 5%-WATER - 50 ML IVPB ONE (09:33)
[2018-02-01] MEDS: CEFTRIAXONE 1 GM in DEXTROSE 5%-WATER - 50 ML IVPB SCH (09:38)
[2018-02-01] MEDS ORDERED: METHADONE HCL 5 MG TABLET PO ONE (10:00)
--- NOTE | 2018-02-01 11:09 | PN ---
Progress Note (short form) - Note Progress Note: asymptomatic. states he no longer having symptoms consistent with withdrawals. states he is more understanding of his medical condition and wants to clean up his life. denies CP, SOB, fever, chills, dizzyness, N/V/C/D, auditory/visual/ tactile hallucinations Current Medications Generic Name Dose Route Start Last Admin Trade Name Freq PRN Reason Stop Dose Admin Albuterol Sulfate 1 amp 01/30/18 03:17 Ventolin 0.083% Nebulizer Soln - NEB Q4H PRN SHORT OF BREATH/WHEEZING Albuterol Sulfate 2 puff 01/30/18 16:41 01/31/18 02:50 Ventolin Hfa Inhaler - IH 2 puff Q4H PRN Administration SHORT OF BREATH/WHEEZING Aspirin 81 mg 01/31/18 10:45 02/01/18 09:24 Asa - PO 81 mg DAILY JOSY Administration Atorvastatin Calcium 10 mg 01/31/18 22:00 01/31/18 21:05 Lipitor - PO 10 mg HS JOSY Administration Chlordiazepoxide HCl 15 mg 02/01/18 05:00 02/01/18 05:58 Librium - PO 02/01/18 23:01 15 mg [id number] JOSY Administration Chlordiazepoxide HCl 25 mg 01/30/18 03:09 01/31/18 21:06 Librium - PO 02/02/18 03:08 25 mg Q4H PRN Administration WITHDRAWAL(CONT SUBST) Clonidine 0.1 mg 01/31/18 10:00 02/01/18 09:24 Catapres - PO 0.1 mg BID JOSY Administration Cyclobenzaprine HCl 5 mg 01/31/18 14:00 02/01/18 05:58 Flexeril - PO 5 mg TID JOSY Administration Sodium Chloride 1,000 mls @ 100 mls/hr 01/30/18 03:15 02/01/18 03:01 Normal Saline - IV 100 mls/hr ASDIR JOSY Administration Ceftriaxone Sodium 1 gm/ 50 mls @ 100 mls/hr 01/31/18 10:00 02/01/18 09:38 Dextrose IVPB 100 mls/hr DAILY JOSY Administration Lisinopril 5 mg 01/31/18 10:45 02/01/18 09:24 Prinivil PO 5 mg DAILY JOSY Administration Methadone HCl 15 mg 02/01/18 10:00 02/01/18 09:24 Dolophine - PO 02/01/18 23:59 15 mg ONCE ONE Administration Methadone HCl 15 mg 02/02/18 10:00 Dolophine - PO 02/02/18 23:59 ONCE ONE Methadone HCl 10 mg 02/03/18 10:00 Dolophine - PO 02/03/18 10:01 ONCE ONE Ondansetron HCl 4 mg 01/30/18 16:16 Zofran Odt - SL Q6H PRN NAUSEA AND/OR VOMITING Multivit/Folic Acid/Iron 1 tab 01/31/18 10:00 02/01/18 09:24 Vitamins (Sjr) - PO 1 tab DAILY JOSY Administration Thiamine HCl 100 mg 01/30/18 22:00 01/31/18 21:05 Vitamin B1 - PO 100 mg HS JOSY Administration Zolpidem Tartrate 10 mg 01/31/18 09:12 Ambien - PO HS PRN INSOMNIA Last Vital Signs Temp Pulse Resp BP Pulse Ox 97.9 F 83 16 106/58 95 02/01/18 07:56 02/01/18 07:56 02/01/18 08:00 02/01/18 07:56 02/01/18 08:00 General NAD HEENT poor dentition CV S1 S2 RRR no chest wall tenderness Lungs coarse breath sounds, diffuse rhonchi Abdomen soft NT/ND extremities no pedal edema CBCD WBC 9.3 K/mm3 (4.0-10.0) 02/01/18 07:20 RBC 4.19 M/mm3 (4.00-5.60) 02/01/18 07:20 Hgb 12.5 GM/dL (11.7-16.9) D 02/01/18 07:20 Hct 38.6 % (35.4-49) 02/01/18 07:20 MCV 92.2 fl (80-96) 02/01/18 07:20 MCHC 32.5 g/dl (32.0-35.9) 02/01/18 07:20 RDW 12.9 % (11.9-15.9) 02/01/18 07:20 Plt Count 237 K/MM3 (134-434) 02/01/18 07:20 MPV 8.9 fl (7.5-11.1) 02/01/18 07:20 CMP Sodium 139 mmol/L (136-145) 02/01/18 07:20 Potassium 3.6 mmol/L (3.5-5.1) 02/01/18 07:20 Chloride 103 mmol/L (98-107) 02/01/18 07:20 Carbon Dioxide 25 mmol/L (21-32) 02/01/18 07:20 Anion Gap 11 (8-16) 02/01/18 07:20 BUN 11 mg/dL (7-18) 02/01/18 07:20 Creatinine 0.8 mg/dL (0.7-1.3) 02/01/18 07:20 Creat Clearance w eGFR > 60 (>60) 01/29/18 23:50 Calcium 8.0 mg/dL (8.5-10.1) L 02/01/18 07:20 Total Bilirubin 1.1 mg/dL (0.2-1.0) H 01/29/18 23:50 AST 33 U/L (15-37) 01/29/18 23:50 ALT 21 U/L (12-78) 01/29/18 23:50 Alkaline Phosphatase 78 U/L (45-117) 01/29/18 23:50 Total Protein 7.3 g/dl (6.4-8.2) 01/29/18 23:50 Albumin 3.1 g/dl (3.4-5.0) L 01/29/18 23:50 Microbiology 01/31/18 10:15 Urine Culture - Final Urine - Urine Clean Catch NO GROWTH OBTAINED 01/30/18 02:09 Blood Culture - Preliminary Blood - Arterial NO GROWTH OBTAINED AFTER 48 HOURS, INCUBATION TO CONTINUE FOR 3 DAYS. 01/30/18 02:09 Blood Culture - Preliminary Blood - Arterial NO GROWTH OBTAINED AFTER 48 HOURS, INCUBATION TO CONTINUE FOR 3 DAYS. 01/30/18 02:09 Urine Culture - Preliminary Urine - Urine Clean Catch Contaminated: Please Repeat ASSESSMENT AND PLAN: 47yo M with PMH continuous polysubstance abuse(cocaine/heroin/ETOH) sent from [facility] due to unresponsiveness 1. Acute toxic metabolic encephalopathy-now resolved. appears to be at baseline. flu swab negative 2. UTI- on ceftriaxone day 3. Cx negative 3. Cardiomyopathy- concern for ischemia. now agreeable to stress test. NPO saturday night for stress test. cont asa/statin/acei. hold betablocker with cocaine use. cardio on board. 4. Acute heroin/cocaine/etoh withdrawal- CIWA/COWS 0. on librium and methadone taper. will d/c clonidine for withdrawals to allow more room for BP management. not interested in inpatient rehab at this time. will give list for outpatient centers. detox specialist on board. on thiamine/folate/MVI 5. Prolonged QTc-now improved. repeat EKG Qtc 457. monitor while on methadone. avoid other prolonging medications. 6. hyponatremia- dehydration. resolved. d/c IVF 7. CXR density- unclear density seen on CXR. CT ordered. now agreeable to CT. will obtain today 8. DVT ppx- hep sq 9. unsteady gait. may require CHANDNI. Visit type - Emergency Visit Emergency Visit: Yes ED Registration Date: 01/30/18 Care time: The patient presented to the Emergency Department on the above date and was hospitalized for further evaluation of their emergent condition. - New Patient This patient is new to me today: No - Critical Care Critical Care patient: No - Discharge Referral Referred to [facility] No
[2018-02-01] MEDS ORDERED: IBUPROFEN 400 MG TABLET (FP) PO ONE (13:30)
--- NOTE | 2018-02-01 14:10 | PN ---
Progress Note, Physician Chief Complaint: Events noted Not in distress History of Present Illness: Patient was seen and examined. Awake and alert. Chart was reviewed Denies chest pain, SOB or palpitations - Current Medication List Current Medications: Active Medications Albuterol Sulfate (Ventolin 0.083% Nebulizer Soln -) 1 amp NEB Q4H PRN PRN Reason: SHORT OF BREATH/WHEEZING Albuterol Sulfate (Ventolin Hfa Inhaler -) 2 puff IH Q4H PRN PRN Reason: SHORT OF BREATH/WHEEZING Last Admin: 01/31/18 02:50 Dose: 2 puff Aspirin (Asa -) 81 mg PO DAILY [facility] Last Admin: 02/01/18 09:24 Dose: 81 mg Atorvastatin Calcium (Lipitor -) 10 mg PO HS [facility] Last Admin: 01/31/18 21:05 Dose: 10 mg Chlordiazepoxide HCl (Librium -) 15 mg PO [id number] [facility] Stop: 02/01/18 23:01 Last Admin: 02/01/18 11:22 Dose: 15 mg Chlordiazepoxide HCl (Librium -) 25 mg PO Q4H PRN PRN Reason: WITHDRAWAL(CONT SUBST) Stop: 02/02/18 03:08 Last Admin: 01/31/18 21:06 Dose: 25 mg Ceftriaxone Sodium 1 gm/ (Dextrose) 50 mls @ 100 mls/hr IVPB DAILY [facility] Last Admin: 02/01/18 09:38 Dose: 100 mls/hr Lisinopril (Prinivil) 5 mg PO DAILY [facility] Last Admin: 02/01/18 09:24 Dose: 5 mg Methadone HCl (Dolophine -) 15 mg PO ONCE ONE Stop: 02/01/18 23:59 Last Admin: 02/01/18 09:24 Dose: 15 mg Methadone HCl (Dolophine -) 15 mg PO ONCE ONE Stop: 02/02/18 23:59 Methadone HCl (Dolophine -) 10 mg PO ONCE ONE Stop: 02/03/18 10:01 Ondansetron HCl (Zofran Odt -) 4 mg SL Q6H PRN PRN Reason: NAUSEA AND/OR VOMITING Multivit/Folic Acid/Iron ( Vitamins (Sjr) -) 1 tab PO DAILY [facility] Last Admin: 02/01/18 09:24 Dose: 1 tab Thiamine HCl (Vitamin B1 -) 100 mg PO HS [facility] Last Admin: 01/31/18 21:05 Dose: 100 mg Zolpidem Tartrate (Ambien -) 10 mg PO HS PRN PRN Reason: INSOMNIA - Objective Vital Signs: Vital Signs Temperature 97.9 F 02/01/18 07:56 Pulse Rate 83 02/01/18 07:56 Respiratory Rate 16 02/01/18 08:00 Blood Pressure 106/58 02/01/18 07:56 O2 Sat by Pulse Oximetry (%) 95 02/01/18 08:00 HENT: Yes: Atraumatic Neck: Yes: Supple Cardiovascular: Yes: Regular Rate and Rhythm, S1, S2 Respiratory: Yes: CTA Bilaterally Gastrointestinal: Yes: Normal Bowel Sounds, Soft. No: Tenderness Edema: No Additional Findings/Remarks: - Review of Systems Constitutional: denies: Fever. denies: Chills Cardiovascular: denies: Chest Pain, Palpitations, Shortness of Breath Respiratory: denies: Cough, Hemoptysis, Orthopnea, PND, SOB, SOB on Exertion Gastrointestinal: denies: Abdominal Pain, Constipation, Rectal Bleeding, Vomiting Musculoskeletal: denies: Joint Pain Neurological: denies: Seizure. denies: Dizziness, Headache, Syncope Labs: CBC, BMP 02/01/18 07:20 02/01/18 07:20 Problem List - Problems (1) Cardiomyopathy Code(s): I42.9 - CARDIOMYOPATHY, UNSPECIFIED Qualifiers: Cardiomyopathy type: due to drug Qualified Code(s): I42.7 - Cardiomyopathy due to drug and external agent (2) Toxic metabolic encephalopathy Code(s): G92 - TOXIC ENCEPHALOPATHY (3) Alcohol dependence with uncomplicated withdrawal Code(s): F10.230 - ALCOHOL DEPENDENCE WITH WITHDRAWAL, UNCOMPLICATED (4) Asthma Code(s): J45.909 - UNSPECIFIED ASTHMA, UNCOMPLICATED (5) Cannabis dependence Code(s): F12.20 - CANNABIS DEPENDENCE, UNCOMPLICATED (6) Cocaine dependence Code(s): F14.20 - COCAINE DEPENDENCE, UNCOMPLICATED Qualifiers: Substance use status: in withdrawal Qualified Code(s): F14.23 - Cocaine dependence with withdrawal (7) Nicotine dependence Code(s): F17.200 - NICOTINE DEPENDENCE, UNSPECIFIED, UNCOMPLICATED Assessment/Plan 1. Acute toxic metabolic encephalopathy 2. Cardiomyopathy (moderate decreased LV function) 3. Polysubstance abuse(cocaine/heroin/ETOH) 4. UTI 5. Elevated troponin referable to demand ischemia PLAN: 1. Trend troponin. As noted on previous note, patient reluctant with further cardiac testings 2. Continue Lisinopril 10 qd, ASA 81 qd, Lipitor 10 qd and not on beta cristhian due to active cocaine abuse 3. Remains on Librium and Methadone taper 4. Counselled on abstinence from substance abuse, refer back to [facility] for continuation of inpatient detox Guarded Further plans are to follow Stone Dawson MD
[2018-02-01] MEDS: ATORVASTATIN CA 80 MG TABLET (FP) PO SCH (21:10)
[2018-02-01] MEDS: THIAMINE HCL 100 MG TABLET (FP) PO SCH (21:10)
[2018-02-02] MEDS ORDERED: PT OWN MED DRAWER 7, Y5N ONE (09:11)
[2018-02-02] MEDS: LISINOPRIL 10 MG TABLET (FP) PO SCH (09:23)
[2018-02-02] MEDS: CEFTRIAXONE 1 GM in DEXTROSE 5%-WATER - 50 ML IVPB SCH (09:23)
[2018-02-02] MEDS: ASPIRIN 81 MG CHEWABLE TABLETS PO SCH (09:23)
[2018-02-02] MEDS: PRENATAL VITAMINS W/ FOLIC ACID TABLET (FP) PO SCH (09:23)
[2018-02-02] MEDS ORDERED: METHADONE HCL 5 MG TABLET PO ONE ×2 (09:30→10:00)
[2018-02-02] MEDS ORDERED: DEXTROSE 5%-WATER - 50 ML IVPB ONE (09:33)
[2018-02-02] MEDS ORDERED: cefTRIAXone SODIUM 1 GM VIAL ONE (09:33)
--- NOTE | 2018-02-02 09:48 | PN ---
Teaching Attending Note Name of Resident: Patrica Castelan ATTENDING PHYSICIAN STATEMENT I saw and evaluated the patient. I reviewed the resident's note and discussed the case with the resident. I agree with the resident's findings and plan as documented. SUBJECTIVE:asymptomatic. denies CP, SOB, fever, chills, N/V/C/D OBJECTIVE: Last Vital Signs Temp Pulse Resp BP Pulse Ox 98.7 F 108 H 19 106/74 96 02/02/18 06:00 02/02/18 06:00 02/02/18 06:00 02/02/18 06:00 02/01/18 21:00 General NAD CV S1 S2 RRR no murmur/rub/gallop lungs CTA B/L no wheezing/rales/rhonchi ASSESSMENT AND PLAN: 47yo M with PMH continuous polysubstance abuse(cocaine/heroin/ETOH) sent from [facility] due to unresponsiveness 1. Acute toxic metabolic encephalopathy-now resolved. appears to be at baseline. flu swab negative 2. UTI- on ceftriaxone day 4. Cx negative 3. Cardiomyopathy- concern for ischemia. now agreeable to stress test. NPO tonight for stress test. cont asa/statin/acei. hold betablocker with cocaine use. cardio on board. 4. Acute heroin/cocaine/etoh withdrawal- CIWA/COWS 0. on methadone taper. completed librium. will complete methadone tomorrow. not interested in inpatient rehab at this time. will give list for outpatient centers. detox specialist on board. counselled on drug abstinence and risks of mortality if continues to use. on thiamine/folate/MVI 5. Prolonged QTc-now improved. repeat EKG Qtc 457. monitor while on methadone. avoid other prolonging medications. 6. hyponatremia- dehydration. resolved. 7. Severe emphysema- pt does admit SOB on exertion. will start symbicort. pulmonary consult. advised against tobacco and other illicit substance use. 8. DVT ppx- hep sq 9. unsteady gait. may require CHANDNI. pt is aware. agreeable if necessary
--- NOTE | 2018-02-02 10:39 | PN ---
Progress Note, Physician Chief Complaint: Events noted Not in distress History of Present Illness: Patient was seen and examined. Awake and alert. Chart was reviewed Denies chest pain, SOB or palpitations Mild wheeze - Current Medication List Current Medications: Active Medications Albuterol Sulfate (Ventolin 0.083% Nebulizer Soln -) 1 amp NEB Q4H PRN PRN Reason: SHORT OF BREATH/WHEEZING Albuterol Sulfate (Ventolin Hfa Inhaler -) 2 puff IH Q4H PRN PRN Reason: SHORT OF BREATH/WHEEZING Last Admin: 01/31/18 02:50 Dose: 2 puff Aspirin (Asa -) 81 mg PO DAILY [facility] Last Admin: 02/02/18 09:23 Dose: 81 mg Atorvastatin Calcium (Lipitor -) 80 mg PO HS [facility] Last Admin: 02/01/18 21:10 Dose: 80 mg Ceftriaxone Sodium 1 gm/ (Dextrose) 50 mls @ 100 mls/hr IVPB DAILY [facility] Last Admin: 02/02/18 09:23 Dose: 100 mls/hr Lisinopril (Prinivil) 10 mg PO DAILY [facility] Last Admin: 02/02/18 09:23 Dose: 10 mg Methadone HCl (Dolophine -) 15 mg PO ONCE ONE Stop: 02/01/18 23:59 Last Admin: 02/01/18 09:24 Dose: 15 mg Methadone HCl (Dolophine -) 10 mg PO ONCE ONE Stop: 02/03/18 10:01 Methadone HCl (Dolophine -) 15 mg PO ONCE ONE Stop: 02/02/18 23:59 Last Admin: 02/02/18 09:27 Dose: 15 mg Ondansetron HCl (Zofran Odt -) 4 mg SL Q6H PRN PRN Reason: NAUSEA AND/OR VOMITING Multivit/Folic Acid/Iron ( Vitamins (Sjr) -) 1 tab PO DAILY [facility] Last Admin: 02/02/18 09:23 Dose: 1 tab Thiamine HCl (Vitamin B1 -) 100 mg PO HS [facility] Last Admin: 02/01/18 21:10 Dose: 100 mg Zolpidem Tartrate (Ambien -) 10 mg PO HS PRN PRN Reason: INSOMNIA - Objective Vital Signs: Vital Signs Temperature 98.7 F 02/02/18 06:00 Pulse Rate 108 H 02/02/18 06:00 Respiratory Rate 19 02/02/18 06:00 Blood Pressure 106/74 02/02/18 06:00 O2 Sat by Pulse Oximetry (%) 96 02/01/18 21:00 Neck: Yes: Supple Cardiovascular: Yes: Regular Rate and Rhythm, Tachycardia, S1, S2 Respiratory: Yes: Diminished, Wheezes Gastrointestinal: Yes: Normal Bowel Sounds, Soft. No: Tenderness Edema: No Additional Findings/Remarks: - Review of Systems Constitutional: denies: Fever. denies: Chills Cardiovascular: denies: Chest Pain, Palpitations, Shortness of Breath Respiratory: denies: Cough, Hemoptysis, Orthopnea, PND, SOB, SOB on Exertion Gastrointestinal: denies: Abdominal Pain, Constipation, Rectal Bleeding, Vomiting Musculoskeletal: denies: Joint Pain Neurological: denies: Seizure. denies: Dizziness, Headache, Syncope Labs: CBC, BMP 02/01/18 07:20 02/01/18 07:20 INR, PTT INR 1.19 (0.82-1.09) H 01/29/18 23:50 Problem List - Problems (1) Cardiomyopathy Code(s): I42.9 - CARDIOMYOPATHY, UNSPECIFIED Qualifiers: Cardiomyopathy type: due to drug Qualified Code(s): I42.7 - Cardiomyopathy due to drug and external agent (2) Toxic metabolic encephalopathy Code(s): G92 - TOXIC ENCEPHALOPATHY (3) Alcohol dependence with uncomplicated withdrawal Code(s): F10.230 - ALCOHOL DEPENDENCE WITH WITHDRAWAL, UNCOMPLICATED (4) Asthma Code(s): J45.909 - UNSPECIFIED ASTHMA, UNCOMPLICATED (5) Cannabis dependence Code(s): F12.20 - CANNABIS DEPENDENCE, UNCOMPLICATED (6) Cocaine dependence Code(s): F14.20 - COCAINE DEPENDENCE, UNCOMPLICATED Qualifiers: Substance use status: in withdrawal Qualified Code(s): F14.23 - Cocaine dependence with withdrawal (7) Nicotine dependence Code(s): F17.200 - NICOTINE DEPENDENCE, UNSPECIFIED, UNCOMPLICATED Assessment/Plan 1. Acute toxic metabolic encephalopathy 2. Cardiomyopathy (moderate decreased LV function) 3. Polysubstance abuse(cocaine/heroin/ETOH) 4. UTI 5. Elevated troponin referable to demand ischemia PLAN: 1. Trend troponin. 2. Continue Lisinopril 10 qd, ASA 81 qd, Lipitor 10 qd and not on beta cristhian due to active cocaine abuse 3. Remains on Librium and Methadone taper 4. Counselled on abstinence from substance abuse, refer back to [facility] for continuation of inpatient detox [facility] Further plans are to follow Stone Dawson MD
--- NOTE | 2018-02-02 13:17 | CON.PULM ---
Consult Consult Specialty:: PULMONARY Referred by:: MJ Reason for Consultation:: COPD - History of Present Illness Chief Complaint: SOB ON MINIMAL EXERTION History of Present Illness: 47 y/o homeless AA male with PMH heroin, alcohol, cocaine, marijuana dependence , snf cigarette smoker, asthma, anxiety, depression, and insomnia, brought in from [facility] d/t AMS. As per [facility], patient was there for detox from cocaine, heroin and alcohol, and was admitted yesterday. Pt states that this was part of "[facility] While there this evening, he was found to be "unresponsive" with a thready pulse, so chest compressions were initiated. As per staff, two compressions were completed when patient had become responsive. He states that he was told he needed to go seek treatment at [facility], or he would risk being removed from the detox program. Pt is currently homeless and has lived on the streets for a few years. He states that his last detox was approx two years ago. He has used heroin for fifteen years- a "bundle" a day. Has drank a six-pack of beers along with hard liquor daily for the past twenty years. States that he has also used cocaine and marijuana "frequently." I have been asked to evaluate for copd. - History Source History Provided By: Patient, Medical Record Limitations to Obtaining History: Poor Historian - Past Medical History [employer]: No: Alzheimer's Cardio/Vascular: No: AFIB Pulmonary: Yes: COPD, Pneumonia Gastrointestinal: No: Cancer Renal/: No: Renal Failure Heme/Onc: No: Anemia Psych: Yes: Addictions, Anxiety, Depression Rheumatology: No: Rheumatoid Arthritis Endocrine: No: Diabetes Mellitus - Alcohol/Substance Use Hx Alcohol Use: Yes - Smoking History Smoking history: Current every day smoker Have you smoked in the past 12 months: Yes Aproximately how many cigarettes per day: 20 - Social History Usual Living Arrangement: Other (homeless) ADL: Support Services Place of : [place] History of Recent Travel: No Home Medications - Allergies Allergies/Adverse Reactions: Allergies Allergy/AdvReac Type Severity Reaction Status Date / Time mustard Allergy Unknown Hives Verified 02/01/18 13:03 - Home Medications Home Medications: Ambulatory Orders NK [No Known Home Medication] 01/29/18 Family Disease History - Family Disease History Family Disease History: Respiratory: Father Review of Systems - Review of Systems Constitutional: denies: Fever Eyes: denies: Blurred Vision HENT: denies: Difficult Swallowing Neck: denies: Decreased ROM Cardiovascular: reports: Edema, Shortness of Breath Respiratory: reports: Cough, Exercise Intolerance, SOB, SOB on Exertion, Wheezing. denies: Hemoptysis Gastrointestinal: denies: Abdominal Pain Genitourinary: denies: Burning Physical Exam Vital Sings: Vital Signs Temperature 98.8 F 02/02/18 10:00 Pulse Rate 92 H 02/02/18 10:00 Respiratory Rate 18 02/02/18 10:00 Blood Pressure 100/50 02/02/18 10:00 O2 Sat by Pulse Oximetry (%) 99 02/02/18 09:00 Constitutional: Yes: Other (necrotic teeth/temporal wasting) Eyes: Yes: EOM Intact HENT: Yes: Normocephalic Neck: Yes: Trachea Midline Cardiovascular: Yes: S1, S2 Respiratory: Yes: Diminished Gastrointestinal: Yes: Soft Edema: LLE: 2+, RLE: 2+ Neurological: Yes: Alert Labs: CBC, BMP 02/01/18 07:20 02/01/18 07:20 REST REVIEWED Imaging - Results Chest X-ray: Report Reviewed, Image Reviewed Cat Scan: Report Reviewed, Image Reviewed Problem List - Problems (1) COPD (chronic obstructive pulmonary disease) with emphysema Code(s): J43.9 - EMPHYSEMA, UNSPECIFIED (2) Altered mental state Code(s): R41.82 - ALTERED MENTAL STATUS, UNSPECIFIED Qualifiers: Altered mental status type: somnolence Qualified Code(s): R40.0 - Somnolence (3) Cardiomyopathy Code(s): I42.9 - CARDIOMYOPATHY, UNSPECIFIED Qualifiers: Cardiomyopathy type: due to drug Qualified Code(s): I42.7 - Cardiomyopathy due to drug and external agent (4) Alcohol dependence with uncomplicated withdrawal Code(s): F10.230 - ALCOHOL DEPENDENCE WITH WITHDRAWAL, UNCOMPLICATED (5) Cannabis dependence Code(s): F12.20 - CANNABIS DEPENDENCE, UNCOMPLICATED (6) Cocaine dependence Code(s): F14.20 - COCAINE DEPENDENCE, UNCOMPLICATED Qualifiers: Substance use status: in withdrawal Qualified Code(s): F14.23 - Cocaine dependence with withdrawal (7) Insomnia secondary to depression with anxiety Code(s): F51.05 - INSOMNIA DUE TO OTHER MENTAL DISORDER; F41.8 - OTHER SPECIFIED ANXIETY DISORDERS Assessment/Plan SEVERE END STAGE BULLOUS EMPHYSEMA/RIGHT UPPER LOBE SUBPLEURAL DENSITY O2 SAT AT REST IS WNL ADDUCTIONS LISTED ACTIVE SMOKING HOMELESS AGREE WITH ANTIBIOTICS/BRONCHODILATORS/O2 TO KEEP SAT GREATER THAN 90%(WILL LIKLEY NEED WITH EXERTION) PRE/POST AMB SPO2 NO OBJECTION TO BRIEF COURSE OF STEROIDS WOULD CHECK HEPATITIS SEROLOGY/HIV/PPD STATUS SOCIAL ISSUES WILL MAKE EFFECTIVE TREATMENT PLAN CHALLENGING AVOID OVERSEDATION DENSITY SEEN ON CT CHEST HAS A RIM OF CALCIFICATION/NEEDLE BX MAY IMPART RISK OF PTX GIVEN DIFFUSE LARGE BULLAE SEEN ON CT WOULD OPT FOR OUTPATIENT MONITORING EITHER WITH SERIAL CT OR PET WILL FOLLOW THANK YOU Sheridan EDWARD MD
--- NOTE | 2018-02-02 14:45 | PN ---
Physical Exam: SUBJECTIVE: Patient seen and examined. He is feeling good today, complaining of difficulty sleeping last night. He agrees to stress test tomorrow. OBJECTIVE: Vital Signs Period Temp Pulse Resp BP Sys/Arambula Pulse Ox Last 24 Hr 97.7 F-98.8 F 92-109 18-20 98-111/47-74 96-99 GENERAL: The patient is awake, alert, and fully oriented, in no acute distress, sitting in bed. HEAD: Normal with no signs of trauma. EYES: extraocular movements intact, sclera anicteric, conjunctiva clear. ENT: oropharynx clear without exudates, moist mucous membranes, missing teeth. NECK: Trachea midline, full range of motion, supple. LUNGS: Breath sounds equal, clear to auscultation bilaterally, no wheezes, no crackles, no accessory muscle use. HEART: Regular rate and rhythm, S1, S2 without murmur, rub or gallop. ABDOMEN: Soft, nontender, nondistended, normoactive bowel sounds, no guarding, no rebound, no hepatosplenomegaly, no masses. EXTREMITIES: 2+ pulses, warm, no edema, no tremor. NEUROLOGICAL: Normal speech, no facial asymmetry. PSYCH: Normal mood, normal affect. SKIN: Warm, dry, normal turgor, no rashes. Active Medications Generic Name Dose Route Start Last Admin Trade Name Freq PRN Reason Stop Dose Admin Albuterol Sulfate 1 amp 01/30/18 03:17 Ventolin 0.083% Nebulizer Soln - NEB Q4H PRN SHORT OF BREATH/WHEEZING Albuterol Sulfate 2 puff 01/30/18 16:41 01/31/18 02:50 Ventolin Hfa Inhaler - IH 2 puff Q4H PRN Administration SHORT OF BREATH/WHEEZING Aspirin 81 mg 01/31/18 10:45 02/02/18 09:23 Asa - PO 81 mg DAILY JOSY Administration Atorvastatin Calcium 80 mg 02/01/18 15:55 02/01/18 21:10 Lipitor - PO 80 mg HS JOSY Administration Ceftriaxone Sodium 1 gm/ 50 mls @ 100 mls/hr 01/31/18 10:00 02/02/18 09:23 Dextrose IVPB 100 mls/hr DAILY JOSY Administration Lisinopril 10 mg 02/01/18 15:55 02/02/18 09:23 Prinivil PO 10 mg DAILY JOSY Administration Methadone HCl 15 mg 02/01/18 10:00 02/01/18 09:24 Dolophine - PO 02/01/18 23:59 15 mg ONCE ONE Administration Methadone HCl 10 mg 02/03/18 10:00 Dolophine - PO 02/03/18 10:01 ONCE ONE Methadone HCl 15 mg 02/02/18 09:30 02/02/18 09:27 Dolophine - PO 02/02/18 23:59 15 mg ONCE ONE Administration Ondansetron HCl 4 mg 01/30/18 16:16 Zofran Odt - SL Q6H PRN NAUSEA AND/OR VOMITING Multivit/Folic Acid/Iron 1 tab 01/31/18 10:00 02/02/18 09:23 Vitamins (Sjr) - PO 1 tab DAILY JOSY Administration Thiamine HCl 100 mg 01/30/18 22:00 02/01/18 21:10 Vitamin B1 - PO 100 mg HS JOSY Administration Zolpidem Tartrate 10 mg 01/31/18 09:12 Ambien - PO HS PRN INSOMNIA ASSESSMENT/PLAN: 47 y/o homeless man with PMH of heroin, alcohol, cocaine, marijuana dependence, asthma, anxiety, depression, and insomnia, brought in from [facility] due to AMS. Admitted to telemetry r/o ACS and withdrawal. Acute Metabolic encephalopathy -due to intoxication or ACS -now resolved Cardiomyopathy -trended troponins, no acute changes on EKG, -cardiac monitoring -Echo with global hypokinesis of LV, EF 37% -cardiology consulted and he finally agreed to stress test -started on lisinopril, lipitor and asa Polysubstance abuse -no signs of withdrawal now -still on methadone taper -Detox consulted -zofran q4h PRN for nausea/vomiting -Multivitamins UTI: -Rocephin 1g qD for 3 days. day 4 -Urine clture negative Qt prolongation -Avoid QT prolonging meds Severe emphysema: -RIGHT UPPER LOBE SUBPLEURAL DENSITY on -CT done yesterday -f/u Pulmonary recommendations Asthma -Albuterol q4h PRN for SOB/wheezing F/E/N no no changes Regular diet PPX SCDs Hep Sq Dispo-tele monitoring, PT vita tomorrow, will probably need rehab. Problem List - Problems (1) Altered mental state Code(s): R41.82 - ALTERED MENTAL STATUS, UNSPECIFIED Qualifiers: Altered mental status type: somnolence Qualified Code(s): R40.0 - Somnolence (2) COPD (chronic obstructive pulmonary disease) with emphysema Code(s): J43.9 - EMPHYSEMA, UNSPECIFIED (3) Cardiomyopathy Code(s): I42.9 - CARDIOMYOPATHY, UNSPECIFIED Qualifiers: Cardiomyopathy type: due to drug Qualified Code(s): I42.7 - Cardiomyopathy due to drug and external agent (4) Toxic metabolic encephalopathy Code(s): G92 - TOXIC ENCEPHALOPATHY (5) Alcohol dependence with uncomplicated withdrawal Code(s): F10.230 - ALCOHOL DEPENDENCE WITH WITHDRAWAL, UNCOMPLICATED (6) Asthma Code(s): J45.909 - UNSPECIFIED ASTHMA, UNCOMPLICATED (7) Cannabis dependence Code(s): F12.20 - CANNABIS DEPENDENCE, UNCOMPLICATED (8) Cocaine dependence Code(s): F14.20 - COCAINE DEPENDENCE, UNCOMPLICATED Qualifiers: Substance use status: in withdrawal Qualified Code(s): F14.23 - Cocaine dependence with withdrawal (9) Insomnia secondary to depression with anxiety Code(s): F51.05 - INSOMNIA DUE TO OTHER MENTAL DISORDER; F41.8 - OTHER SPECIFIED ANXIETY DISORDERS (10) Nicotine dependence Code(s): F17.200 - NICOTINE DEPENDENCE, UNSPECIFIED, UNCOMPLICATED (11) Opioid dependence with withdrawal Code(s): F11.23 - OPIOID DEPENDENCE WITH WITHDRAWAL Visit type - Emergency Visit Emergency Visit: Yes ED Registration Date: 01/30/18 Care time: The patient presented to the Emergency Department on the above date and was hospitalized for further evaluation of their emergent condition. - New Patient This patient is new to me today: Yes Date on this admission: 02/02/18 - Critical Care Critical Care patient: No - Discharge Referral Referred to [facility] Med P.C.: No
[2018-02-02] MEDS: THIAMINE HCL 100 MG TABLET (FP) PO SCH (21:29)
[2018-02-02] MEDS: ATORVASTATIN CA 80 MG TABLET (FP) PO SCH (21:29)
[2018-02-02] MEDS ORDERED: IBUPROFEN 400 MG TABLET (FP) PO ONE (21:39)
--- NOTE | 2018-02-03 05:54 | PN ---
Physical Exam: SUBJECTIVE: Patient seen and examined by me this AM - No complaints, no major overnigh events; Still with dry cough; No f/c/n/v/d; Denies hallucinations, tremors; for cardiac stress test today OBJECTIVE: Vital Signs Intake & Output 01/31/18 02/01/18 02/02/18 02/03/18 23:59 23:59 23:59 23:59 Intake Total 2160 2730 1780 Output Total 1500 Balance 660 2730 1780 Period Temp Pulse Resp BP Sys/Arambula Pulse Ox Last 24 Hr 98.3 F-98.8 F 70-108 18-20 98-120/44-74 98-99 GENERAL: Middle aged man, somnolent, A&&Ox2 HEAD: Normal with no signs of trauma. EYES: Extraocular movements intact, sclera anicteric, conjunctiva clear. No ptosis. ENT: Poor dentition. Ears normal, nares patent, oropharynx clear without exudates, moist mucous membranes. NECK: Trachea midline, full range of motion, supple. LUNGS: Diffuse rhonchi, expiratory wheezing noted in both lung millan HEART: RRR, S1, S2 without murmur, rub or gallop. ABDOMEN: Slight epigastric tenderness to palpation; Soft, ND, normoactive bowel sounds EXTREMITIES: BL stasis dematitis, 2+ pulses, warm, well-perfused, no edema. NEUROLOGICAL: Cranial nerves II through XII grossly intact. Normal speech, gait not observed. PSYCH: Pleasant, denies hallucinations SKIN: Warm, dry, normal turgor CBC, BMP 02/03/18 06:45 02/03/18 06:45 02/01/18 07:20 02/01/18 07:20 Active Medications Generic Name Dose Route Start Last Admin Trade Name Freq PRN Reason Stop Dose Admin Albuterol Sulfate 1 amp 01/30/18 03:17 Ventolin 0.083% Nebulizer Soln - NEB Q4H PRN SHORT OF BREATH/WHEEZING Albuterol Sulfate 2 puff 01/30/18 16:41 01/31/18 02:50 Ventolin Hfa Inhaler - IH 2 puff Q4H PRN Administration SHORT OF BREATH/WHEEZING Aspirin 81 mg 01/31/18 10:45 02/02/18 09:23 Asa - PO 81 mg DAILY JOSY Administration Atorvastatin Calcium 80 mg 02/01/18 15:55 02/02/18 21:29 Lipitor - PO 80 mg HS [facility] Administration Ceftriaxone Sodium 1 gm/ 50 mls @ 100 mls/hr 01/31/18 10:00 02/02/18 09:23 Dextrose IVPB 100 mls/hr DAILY JOSY Administration Lisinopril 10 mg 02/01/18 15:55 02/02/18 09:23 Prinivil PO 10 mg DAILY JOSY Administration Methadone HCl 15 mg 02/01/18 10:00 02/01/18 09:24 Dolophine - PO 02/01/18 23:59 15 mg ONCE ONE Administration Methadone HCl 10 mg 02/03/18 10:00 Dolophine - PO 02/03/18 10:01 ONCE ONE Methadone HCl 15 mg 02/02/18 09:30 02/02/18 09:27 Dolophine - PO 02/02/18 23:59 15 mg ONCE ONE Administration Ondansetron HCl 4 mg 01/30/18 16:16 Zofran Odt - SL Q6H PRN NAUSEA AND/OR VOMITING Multivit/Folic Acid/Iron 1 tab 01/31/18 10:00 02/02/18 09:23 Vitamins (Sjr) - PO 1 tab DAILY [facility] Administration Thiamine HCl 100 mg 01/30/18 22:00 02/02/18 21:29 Vitamin B1 - PO 100 mg HS [facility] Administration Zolpidem Tartrate 10 mg 01/31/18 09:12 Ambien - PO HS PRN INSOMNIA Microbiology 01/30/18 02:09 Blood - Arterial Blood Culture - Preliminary NO GROWTH OBTAINED AFTER 96 HOURS, INCUBATION TO CONTINUE FOR 1 DAYS. 01/30/18 02:09 Blood - Arterial Blood Culture - Preliminary NO GROWTH OBTAINED AFTER 96 HOURS, INCUBATION TO CONTINUE FOR 1 DAYS. 01/31/18 10:15 Urine - Urine Clean Catch Urine Culture - Final NO GROWTH OBTAINED 01/30/18 02:09 Urine - Urine Clean Catch Urine Culture - Preliminary Contaminated: Please Repeat 01/30/18 22:00 Nasopharyngeal Swab Influenza Types A,B Antigen (NEGRO) - Final 01/30/18 22:00 Nasopharyngeal Swab - Final 01/30/18 22:21 Nasopharyngeal Swab Influenza Types A,B Antigen (NEGRO) - Final 01/30/18 22:21 Nasopharyngeal Swab - Final CXR 01/30: bullous findings with coarse changes. ill defined density by anterior aspect of third rib Carotid doppler 01/30 - Distal thickening of left/right carotid artery. Poor exam. EKG 01/29 : normal sinus with PAC's, t wave inversions v4-v6, QT prolongation Qtc >500ms EKG 01/30 - Rate 76, NAD, QTC 499, ST elevation in v3, twI in v4/v5 ECHO 01/30 - EF 38%, moderately reduced LV function, global hypokinesis of LV; normal RV size and function; trace MR/TR CT chest 02/01 - Impression: Severe bullous emphysematous changes Partially calcified nodularity adjacent to the right third rib probably pleural-based probably a chronic type partially calcified pleural plaque Left lower lobe consolidation with air bronchograms suspicious for inflammation or infection Cardiac nuclear stress test 02/03 - negative. Global hypokinesia, LV dilatation, EF of 37% ASSESSMENT/PLAN: 47 y/o homeless man with PMH of heroin, alcohol, cocaine, marijuana dependence, asthma, anxiety, depression, and insomnia, brought in from [facility] d/t [facility]. Now s/p normal nuclear stress test, plan for d/c to [facility] if pt amenable. #Cardiomyopathy -troponins with no significant increase from 0.14->0.16 -> 0.10 ; EKG unremarkable - cardiac monitoring - Echo w/ global hypokinesis of LV - Stress test negative with evidence of global hypokinesia. No further work-up required - c/w lisinopril, lipitor and asa #Alcohol/heroin/cocaine withdrawal - on methadone, librium taper - finished methadone taper - Detox team consulted, recs appreciated - finished librium protocol - Thiamine 100mg PO qd, Folic acid 1mg PO qd - ambien for insomnia - pt refusing PT eval; not stable when ambulating for inpt detox, however finished detox inpt - Pt with unwitnessed fall in AM when down for stress test; no headstrike, no AC ; pt evaluated no evidence of fracture; mild tenderness on L posterior back; If persistent, consider imaging #Acute toxic metabolic encephalopathy -Resolved -Trend MS -Consider CT head if clinically worsens #UTI/leukocytosis - UA: 2+ leuk esterase, 85 WBCs -Rocephin 1g qD day 5 -Urine cx negative -flu swab negative #Qt prolongation - qtc 457 on repeat ekg -Avoid QT prolonging agents - serial ekgs #Abnormal CXR - bullous dz, suspicious density - CT chest with calcified density, bullous dz - pulm consulted - will require outpt f/u - consider possible bx - PET scan as outpt #Asthma -Albuterol q4h PRN for SOB/wheezing - pre/post - 5 day burst steroid PO prednisone course - avoid oversedation #F/E/N PO hydration daily bmps Regular diet #PPX SCDs HSQ #Dispo- plan for dispo to [facility], however pt will likely refuse. As stress test negative, d/c home if pt refuses [facility] tomorrow Plan discussed with attending, Dr. Bryant Rey, PGY1 Visit type - Emergency Visit Emergency Visit: Yes ED Registration Date: 01/30/18 Care time: The patient presented to the Emergency Department on the above date and was hospitalized for further evaluation of their emergent condition. - New Patient This patient is new to me today: No - Critical Care Critical Care patient: No
[2018-02-03 07:04] LABS: BASO % 1.2 % (0-2.0); EOS % 4.2 % (0-4.5); HEMATOCRIT 40.1 % (35.4-49); HEMOGLOBIN 13.1 GM/dL (11.7-16.9); LYMPH % 22.1 % (8-40); MCH 30.3 pg (25.7-33.7); MCHC 32.6 g/dl (32.0-35.9); MEAN CELL VOLUME 92.8 fl (80-96); MEAN PLT VOLUME 8.7 fl (7.5-11.1); MONO % 12.7 % (3.8-10.2); NEUT % 59.8 % (42.8-82.8); PLATELET COUNT 212 K/MM3 (134-434); RBC 4.33 M/mm3 (4.00-5.60); RDW 12.9 % (11.9-15.9); WHITE BLOOD COUNT 6.8 K/mm3 (4.0-10.0)
[2018-02-03 07:40] LABS: ALBUMIN 2.4 g/dl (3.4-5.0); ANION GAP 3 (8-16); BLOOD UREA NITROGEN 12 mg/dL (7-18); CALCIUM 8.3 mg/dL (8.5-10.1); CHLORIDE 104 mmol/L (98-107); CO2 31 mmol/L (21-32); GLUCOSE,RANDOM 86 mg/dL (74-106); POTASSIUM 4.4 mmol/L (3.5-5.1); SODIUM 138 mmol/L (136-145)
[2018-02-03 07:44] LABS: ALK PHOS 70 U/L (45-117); BILIRUBIN,TOTAL 0.4 mg/dL (0.2-1.0); CREATININE 0.8 mg/dL (0.7-1.3); SGOT/AST 13 U/L (15-37); SGPT/ALT 15 U/L (12-78)
[2018-02-03] MEDS ORDERED: METHADONE HCL 10 MG TABLET PO ONE ×2 (10:00→15:45)
--- NOTE | 2018-02-03 10:32 | PN ---
Progress Note, Physician History of Present Illness: Reports dry cough, undergoing stress testing, denies chest pain or dyspnea. - Current Medication List Current Medications: Active Medications Albuterol Sulfate (Ventolin 0.083% Nebulizer Soln -) 1 amp NEB Q4H PRN PRN Reason: SHORT OF BREATH/WHEEZING Albuterol Sulfate (Ventolin Hfa Inhaler -) 2 puff IH Q4H PRN PRN Reason: SHORT OF BREATH/WHEEZING Last Admin: 01/31/18 02:50 Dose: 2 puff Aspirin (Asa -) 81 mg PO DAILY [facility] Last Admin: 02/02/18 09:23 Dose: 81 mg Atorvastatin Calcium (Lipitor -) 80 mg PO HS [facility] Last Admin: 02/02/18 21:29 Dose: 80 mg Ceftriaxone Sodium 1 gm/ (Dextrose) 50 mls @ 100 mls/hr IVPB DAILY [facility] Last Admin: 02/02/18 09:23 Dose: 100 mls/hr Lisinopril (Prinivil) 10 mg PO DAILY [facility] Last Admin: 02/02/18 09:23 Dose: 10 mg Methadone HCl (Dolophine -) 15 mg PO ONCE ONE Stop: 02/01/18 23:59 Last Admin: 02/01/18 09:24 Dose: 15 mg Methadone HCl (Dolophine -) 15 mg PO ONCE ONE Stop: 02/02/18 23:59 Last Admin: 02/02/18 09:27 Dose: 15 mg Ondansetron HCl (Zofran Odt -) 4 mg SL Q6H PRN PRN Reason: NAUSEA AND/OR VOMITING Prednisone (Deltasone -) 40 mg PO DAILY [facility] Multivit/Folic Acid/Iron ( Vitamins (Sjr) -) 1 tab PO DAILY [facility] Last Admin: 02/02/18 09:23 Dose: 1 tab Thiamine HCl (Vitamin B1 -) 100 mg PO HS [facility] Last Admin: 02/02/18 21:29 Dose: 100 mg Zolpidem Tartrate (Ambien -) 10 mg PO HS PRN PRN Reason: INSOMNIA - Objective Vital Signs: Vital Signs Temperature 98.3 F 02/03/18 06:00 Pulse Rate 77 02/03/18 06:00 Respiratory Rate 20 02/03/18 06:00 Blood Pressure 100/53 02/03/18 06:00 O2 Sat by Pulse Oximetry (%) 98 02/02/18 21:00 Constitutional: Yes: No Distress, Calm Neck: Yes: Supple Cardiovascular: Yes: Regular Rate and Rhythm Respiratory: Yes: Regular, Diminished Gastrointestinal: Yes: Normal Bowel Sounds, Soft Edema: No Labs: CBC, BMP 02/03/18 06:45 02/03/18 06:45 INR, PTT INR 1.19 (0.82-1.09) H 01/29/18 23:50 - ....Imaging EKG: Report Reviewed (Tele: NSR) Problem List - Problems (1) Cardiomyopathy Code(s): I42.9 - CARDIOMYOPATHY, UNSPECIFIED Qualifiers: Cardiomyopathy type: due to drug Qualified Code(s): I42.7 - Cardiomyopathy due to drug and external agent (2) Toxic metabolic encephalopathy Code(s): G92 - TOXIC ENCEPHALOPATHY (3) Altered mental state Code(s): R41.82 - ALTERED MENTAL STATUS, UNSPECIFIED Qualifiers: Altered mental status type: somnolence Qualified Code(s): R40.0 - Somnolence (4) Alcohol dependence with uncomplicated withdrawal Code(s): F10.230 - ALCOHOL DEPENDENCE WITH WITHDRAWAL, UNCOMPLICATED (5) Cocaine dependence Code(s): F14.20 - COCAINE DEPENDENCE, UNCOMPLICATED Qualifiers: Substance use status: in withdrawal Qualified Code(s): F14.23 - Cocaine dependence with withdrawal (6) Opioid dependence with withdrawal Code(s): F11.23 - OPIOID DEPENDENCE WITH WITHDRAWAL Assessment/Plan 1. Acute toxic metabolic encephalopathy 2. Cardiomyopathy (moderate decreased LV function) 3. Polysubstance abuse(cocaine/heroin/ETOH) 4. UTI 5. Elevated troponin referable to demand ischemia 6. End-stage bullous emphysema with RUL subpleural density 7. Homelessness PLAN: 1. Troponins have peaked, f/u stress test results 2. Continue Lisinopril 10 qd, ASA 81 qd, Lipitor 10 qd and not on beta cristhian due to active cocaine abuse 3. Remains on Librium and Methadone taper 4. Counselled on abstinence from substance abuse, refer back to [facility] for continuation of inpatient detox 5. BD, O2, oral steroids, empiric abx course
--- NOTE | 2018-02-03 10:33 | PN ---
Progress Note, Physician History of Present Illness: PULMONARY ALERT,NAD,-C/O CP,-COUGH,LESS DYSPNEIC - Current Medication List Current Medications: Active Medications Albuterol Sulfate (Ventolin 0.083% Nebulizer Soln -) 1 amp NEB Q4H PRN PRN Reason: SHORT OF BREATH/WHEEZING Albuterol Sulfate (Ventolin Hfa Inhaler -) 2 puff IH Q4H PRN PRN Reason: SHORT OF BREATH/WHEEZING Last Admin: 01/31/18 02:50 Dose: 2 puff Aspirin (Asa -) 81 mg PO DAILY [facility] Last Admin: 02/02/18 09:23 Dose: 81 mg Atorvastatin Calcium (Lipitor -) 80 mg PO HS [facility] Last Admin: 02/02/18 21:29 Dose: 80 mg Ceftriaxone Sodium 1 gm/ (Dextrose) 50 mls @ 100 mls/hr IVPB DAILY [facility] Last Admin: 02/02/18 09:23 Dose: 100 mls/hr Lisinopril (Prinivil) 10 mg PO DAILY [facility] Last Admin: 02/02/18 09:23 Dose: 10 mg Methadone HCl (Dolophine -) 15 mg PO ONCE ONE Stop: 02/01/18 23:59 Last Admin: 02/01/18 09:24 Dose: 15 mg Methadone HCl (Dolophine -) 15 mg PO ONCE ONE Stop: 02/02/18 23:59 Last Admin: 02/02/18 09:27 Dose: 15 mg Ondansetron HCl (Zofran Odt -) 4 mg SL Q6H PRN PRN Reason: NAUSEA AND/OR VOMITING Prednisone (Deltasone -) 40 mg PO DAILY [facility] Multivit/Folic Acid/Iron ( Vitamins (Sjr) -) 1 tab PO DAILY [facility] Last Admin: 02/02/18 09:23 Dose: 1 tab Thiamine HCl (Vitamin B1 -) 100 mg PO HS [facility] Last Admin: 02/02/18 21:29 Dose: 100 mg Zolpidem Tartrate (Ambien -) 10 mg PO HS PRN PRN Reason: INSOMNIA - Objective Vital Signs: Vital Signs Temperature 98.3 F 02/03/18 06:00 Pulse Rate 77 02/03/18 06:00 Respiratory Rate 20 02/03/18 06:00 Blood Pressure 100/53 02/03/18 06:00 O2 Sat by Pulse Oximetry (%) 98 02/02/18 21:00 Constitutional: Yes: Well Nourished, Calm Eyes: Yes: WNL HENT: Yes: WNL Neck: Yes: WNL Cardiovascular: Yes: Regular Rate and Rhythm, S1, S2 Respiratory: Yes: Diminished Gastrointestinal: Yes: Normal Bowel Sounds, Soft Extremities: Yes: WNL Edema: No Labs: CBC, BMP 02/03/18 06:45 02/03/18 06:45 INR, PTT INR 1.19 (0.82-1.09) H 01/29/18 23:50 Assessment/Plan Problem List - Problems (1) COPD (chronic obstructive pulmonary disease) with emphysema Code(s): J43.9 - EMPHYSEMA, UNSPECIFIED (2) Altered mental state Code(s): R41.82 - ALTERED MENTAL STATUS, UNSPECIFIED Qualifiers: Altered mental status type: somnolence Qualified Code(s): R40.0 - Somnolence (3) Cardiomyopathy Code(s): I42.9 - CARDIOMYOPATHY, UNSPECIFIED Qualifiers: Cardiomyopathy type: due to drug Qualified Code(s): I42.7 - Cardiomyopathy due to drug and external agent (4) Alcohol dependence with uncomplicated withdrawal Code(s): F10.230 - ALCOHOL DEPENDENCE WITH WITHDRAWAL, UNCOMPLICATED (5) Cannabis dependence Code(s): F12.20 - CANNABIS DEPENDENCE, UNCOMPLICATED (6) Cocaine dependence Code(s): F14.20 - COCAINE DEPENDENCE, UNCOMPLICATED Qualifiers: Substance use status: in withdrawal Qualified Code(s): F14.23 - Cocaine dependence with withdrawal (7) Insomnia secondary to depression with anxiety Code(s): F51.05 - INSOMNIA DUE TO OTHER MENTAL DISORDER; F41.8 - OTHER SPECIFIED ANXIETY DISORDERS Assessment/Plan SEVERE END STAGE BULLOUS EMPHYSEMA/RIGHT UPPER LOBE SUBPLEURAL DENSITY SUBSTANCE ABUSE TOBACCO ABUSE HOMELESS AGREE WITH ANTIBIOTICS/ BRONCHODILATORS/ O2 TO KEEP SAT GREATER THAN 90%(WILL LIKLEY NEED WITH EXERTION) PRE/POST AMB SPO2 BRIEF COURSE OF STEROIDS WOULD CHECK HEPATITIS SEROLOGY/HIV/PPD STATUS SOCIAL ISSUES WILL MAKE EFFECTIVE TREATMENT PLAN CHALLENGING AVOID OVERSEDATION DENSITY SEEN ON CT CHEST HAS A RIM OF CALCIFICATION/ NEEDLE BX MAY IMPART RISK OF PTX GIVEN DIFFUSE LARGE BULLA SEEN ON CT PET SCAN OUTPATIENT DR LAMAR
--- NOTE | 2018-02-03 12:30 | PN ---
Teaching Attending Note Name of Resident: Dann Rey ATTENDING PHYSICIAN STATEMENT I saw and evaluated the patient. I reviewed the resident's note and discussed the case with the resident. I agree with the resident's findings and plan as documented. SUBJECTIVE:asymptomatic denies CP, SOB, fever, chills, N/V/C/D OBJECTIVE: Last Vital Signs Temp Pulse Resp BP Pulse Ox 98.3 F 77 20 100/53 98 02/03/18 06:00 02/03/18 06:00 02/03/18 06:00 02/03/18 06:00 02/02/18 21:00 General NAD ASSESSMENT AND PLAN: 47yo M with PMH continuous polysubstance abuse(cocaine/heroin/ETOH) sent from [facility] due to unresponsiveness 1. Acute toxic metabolic encephalopathy-now resolved. appears to be at baseline. flu swab negative 2. UTI- on ceftriaxone day 5. Cx negative 3. Cardiomyopathy- concern for ischemia. NPO for stress test today. cont asa/ statin/acei. hold betablocker with cocaine use. cardio on board. 4. Acute heroin/cocaine/etoh withdrawal- CIWA/COWS 0. on methadone taper, last dose today. completed librium. not interested in inpatient rehab at this time. will give list for outpatient centers. detox specialist on board. counselled on drug abstinence and risks of mortality if continues to use. on thiamine/folate/ MVI 5. Prolonged QTc-now improved. repeat EKG Qtc 457. monitor while on methadone. avoid other prolonging medications. 6. hyponatremia- dehydration. resolved. 7. Severe emphysema- pt does admit SOB on exertion. short steroid burst (pred 40mg po x5days) inhalers. pulmonary consulted. will need outpatient follow up. 8. DVT ppx- hep sq 9. PT assessment, if remains unstable will need [facility] placmeent. if no difficulty ambulating can d/c pending NMST results
[2018-02-03] MEDS ORDERED: DEXTROSE 5%-WATER - 50 ML IVPB ONE (13:30)
[2018-02-03] MEDS ORDERED: cefTRIAXone SODIUM 1 GM VIAL ONE (13:30)
[2018-02-03] MEDS ORDERED: DOBUTAMINE HCL 100,000 MCG in DEXTROSE 5%-WATER - 92 ML IVPB ONE (14:30)
[2018-02-03] MEDS: LISINOPRIL 10 MG TABLET (FP) PO SCH (15:07)
[2018-02-03] MEDS: CEFTRIAXONE 1 GM in DEXTROSE 5%-WATER - 50 ML IVPB SCH (15:42)
[2018-02-03] MEDS: predniSONE 20 MG TABLET (UD) PO SCH (15:42)
[2018-02-03] MEDS: ASPIRIN 81 MG CHEWABLE TABLETS PO SCH (15:42)
[2018-02-03] MEDS: PRENATAL VITAMINS W/ FOLIC ACID TABLET (FP) PO SCH (15:42)
[2018-02-03] MEDS: IBUPROFEN 400 MG TABLET (FP) PO PRN (22:33)
[2018-02-03] MEDS: THIAMINE HCL 100 MG TABLET (FP) PO SCH (22:34)
[2018-02-03] MEDS: ATORVASTATIN CA 10 MG TABLET (FP) PO SCH (22:34)
--- NOTE | 2018-02-04 05:45 | PN ---
Physical Exam: SUBJECTIVE: Patient seen and examined -No overnight events. Afebrile, hemo stable; Nuclear stress test negative yesterday, will likely d/c home today, as pt will likely refuse rehab; Pt refused PT yesterday - Still endorsing pain in LL back; Endorsing dry cough, no SOB, CP, Back pain, Ab pain, peripheral edema, N/V; endorses insomnia/ agitation overnight, some subjective chills; completed methadone taper yesterday; Counseled on plan for outpt followup and discharge to rehab; pt agreeable, all questions answered OBJECTIVE: Vital Signs Intake & Output 02/01/18 02/02/18 02/03/18 02/04/18 23:59 23:59 23:59 23:59 Intake Total 2730 1780 1020 Output Total 400 Balance 2730 1780 620 Period Temp Pulse Resp BP Sys/Arambula Pulse Ox Last 24 Hr 97.9 F-98.9 F 77-105 18-20 97-122/39-66 96-98 GENERAL: Middle aged man, somnolent, A&&Ox3, more somnolent this AM HEAD: Normal with no signs of trauma. EYES: Extraocular movements intact, sclera anicteric, conjunctiva clear. No ptosis. ENT: Poor dentition. Ears normal, nares patent, oropharynx clear without exudates, moist mucous membranes. NECK: Trachea midline, full range of motion, supple. LUNGS: Diffuse rhonchi more prominent at bases, expiratory wheezing L>R HEART: RRR, S1, S2 without murmur, rub or gallop. ABDOMEN: Soft, ND, NT, normoactive bowel sounds; Increased ab tone EXTREMITIES: BL stasis dematitis, 2+ pulses, warm, well-perfused, no edema. NEUROLOGICAL: Cranial nerves II through XII grossly intact. Normal speech, gait not observed. PSYCH: Pleasant, denies hallucinations SKIN: Warm, dry, normal turgor Laboratory Results - last 24 hr CBC, BMP 02/03/18 06:45 02/03/18 06:45 02/03/18 02/03/18 06:45 06:45 WBC 6.8 RBC 4.33 Hgb 13.1 Hct 40.1 MCV 92.8 MCH 30.3 MCHC 32.6 RDW 12.9 Plt Count 212 MPV 8.7 Neutrophils % 59.8 D Lymphocytes % 22.1 D Monocytes % 12.7 H D Eosinophils % 4.2 D Basophils % 1.2 D Sodium 138 Potassium 4.4 D Chloride 104 Carbon Dioxide 31 D Anion Gap 3 L BUN 12 Creatinine 0.8 Creat Clearance w eGFR > 60 Random Glucose 86 Calcium 8.3 L Total Bilirubin 0.4 D AST 13 L D ALT 15 D Alkaline Phosphatase 70 Total Protein 6.0 L Albumin 2.4 L D Active Medications Generic Name Dose Route Start Last Admin Trade Name Freq PRN Reason Stop Dose Admin Albuterol Sulfate 1 amp 01/30/18 03:17 Ventolin 0.083% Nebulizer Soln - NEB Q4H PRN SHORT OF BREATH/WHEEZING Albuterol Sulfate 2 puff 01/30/18 16:41 01/31/18 02:50 Ventolin Hfa Inhaler - IH 2 puff Q4H PRN Administration SHORT OF BREATH/WHEEZING Aspirin 81 mg 01/31/18 10:45 02/03/18 15:42 Asa - PO 81 mg DAILY [facility] Administration Atorvastatin Calcium 10 mg 02/03/18 22:00 02/03/18 22:34 Lipitor - PO 10 mg HS [facility] Administration Ceftriaxone Sodium 1 gm/ 50 mls @ 100 mls/hr 01/31/18 10:00 02/03/18 15:42 Dextrose IVPB 100 mls/hr DAILY [facility] Administration Ibuprofen 400 mg 02/03/18 16:39 02/03/18 22:33 Motrin - PO 400 mg Q4H PRN Administration FEVER Lisinopril 10 mg 02/01/18 15:55 02/03/18 15:07 Prinivil PO Not Given DAILY [facility] Methadone HCl 15 mg 02/01/18 10:00 02/01/18 09:24 Dolophine - PO 02/01/18 23:59 15 mg ONCE ONE Administration Methadone HCl 15 mg 02/02/18 09:30 02/02/18 09:27 Dolophine - PO 02/02/18 23:59 15 mg ONCE ONE Administration Ondansetron HCl 4 mg 01/30/18 16:16 Zofran Odt - SL Q6H PRN NAUSEA AND/OR VOMITING Prednisone 40 mg 02/03/18 10:00 02/03/18 15:42 Deltasone - PO 40 mg DAILY [facility] Administration Multivit/Folic Acid/Iron 1 tab 03/23/18 10:00 02/03/18 15:42 Vitamins (Sjr) - PO 1 tab DAILY [facility] Administration Thiamine HCl 100 mg 01/30/18 22:00 02/03/18 22:34 Vitamin B1 - PO 100 mg HS [facility] Administration Zolpidem Tartrate 10 mg 01/31/18 09:12 Ambien - PO HS PRN INSOMNIA Microbiology 01/30/18 02:09 Blood - Arterial Blood Culture - Final NO GROWTH AFTER 5 DAYS INCUBATION 01/30/18 02:09 Blood - Arterial Blood Culture - Final NO GROWTH AFTER 5 DAYS INCUBATION 01/31/18 10:15 Urine - Urine Clean Catch Urine Culture - Final NO GROWTH OBTAINED 01/30/18 02:09 Urine - Urine Clean Catch Urine Culture - Preliminary Contaminated: Please Repeat 01/30/18 22:00 Nasopharyngeal Swab Influenza Types A,B Antigen (NEGRO) - Final 01/30/18 22:00 Nasopharyngeal Swab - Final 01/30/18 22:21 Nasopharyngeal Swab Influenza Types A,B Antigen (NEGRO) - Final 01/30/18 22:21 Nasopharyngeal Swab - Final CXR 01/30: bullous findings with coarse changes. ill defined density by anterior aspect of third rib Carotid doppler 01/30 - Distal thickening of left/right carotid artery. Poor exam. EKG 01/29 : normal sinus with PAC's, t wave inversions v4-v6, QT prolongation Qtc >500ms EKG 01/30 - Rate 76, NAD, QTC 499, ST elevation in v3, twI in v4/v5 ECHO 01/30 - EF 38%, moderately reduced LV function, global hypokinesis of LV; normal RV size and function; trace MR/TR CT chest 02/01 - Impression: Severe bullous emphysematous changes Partially calcified nodularity adjacent to the right third rib probably pleural-based probably a chronic type partially calcified pleural plaque Left lower lobe consolidation with air bronchograms suspicious for inflammation or infection Cardiac nuclear stress test 02/03 - negative. Global hypokinesia, LV dilatation, EF of 37% ASSESSMENT/PLAN: 47 y/o homeless man with PMH of heroin, alcohol, cocaine, marijuana dependence, asthma, anxiety, depression, and insomnia, brought in from [facility] d/t AMS. Now s/p normal nuclear stress test, plan for d/c to [facility] if pt amenable. Pt continues to oscillate between refusing [facility] and agreeing to it. Hopeful discharge for tomorrow. #Cardiomyopathy -troponins with no significant increase from 0.14->0.16 -> 0.10 ; EKG unremarkable - cardiac monitoring - Echo w/ global hypokinesis of LV - Stress test negative with evidence of global hypokinesia. No further work-up required as inpt - c/w lisinopril, lipitor and asa - Consider started low dose Coreg per cards recs #Alcohol/heroin/cocaine withdrawal - on methadone, librium taper - started on low dose methadone course per Dr. Mcintosh due to protracted withdrawal - Detox team consulted, recs appreciated - finished librium protocol - Thiamine 100mg PO qd, Folic acid 1mg PO qd - ambien for insomnia - Walked 65 ft with PT today; gait very unsteady, ataxic #Acute toxic metabolic encephalopathy -Resolved -Trend MS -Consider CT head if clinically worsens #UTI/leukocytosis - UA: 2+ leuk esterase, 85 WBCs -Rocephin 1g qD day 6; Consider switched to PO meds -Urine cx negative -flu swab negative #Back pain - Pain control with Motrin - No need for imaging, no gross evidence of bruising or fractures #Qt prolongation - qtc 457 on repeat ekg -Avoid QT prolonging agents - serial ekgs #Abnormal CXR - bullous dz, suspicious density - CT chest with calcified density, bullous dz - pulm consulted - will require outpt f/u - consider possible bx - PET scan as outpt #Asthma -Albuterol q4h PRN for SOB/wheezing - pre/post - 5 day burst steroid PO prednisone course. Day 2 - avoid oversedation #F/E/N PO hydration daily bmps Regular diet #PPX SCDs HSQ #Dispo- plan for dispo to [facility] if pt amenable Plan discussed with attending, Dr. Bryant Rey, PGY1 Visit type - Emergency Visit Emergency Visit: Yes ED Registration Date: 01/30/18 Care time: The patient presented to the Emergency Department on the above date and was hospitalized for further evaluation of their emergent condition. - New Patient This patient is new to me today: No - Critical Care Critical Care patient: No - Discharge Referral Referred to [facility] Med P.C.: No
[2018-02-04 07:59] LABS: HEMATOCRIT 34.5 % (35.4-49); HEMOGLOBIN 11.2 GM/dL (11.7-16.9); MCH 29.9 pg (25.7-33.7); MCHC 32.5 g/dl (32.0-35.9); MEAN CELL VOLUME 92.1 fl (80-96); MEAN PLT VOLUME 8.6 fl (7.5-11.1); PLATELET COUNT 254 K/MM3 (134-434); RBC 3.75 M/mm3 (4.00-5.60); RDW 12.7 % (11.9-15.9); WHITE BLOOD COUNT 11.3 K/mm3 (4.0-10.0)
[2018-02-04 08:14] LABS: ANION GAP 7 (8-16); BLOOD UREA NITROGEN 15 mg/dL (7-18); CALCIUM 8.6 mg/dL (8.5-10.1); CHLORIDE 100 mmol/L (98-107); CO2 30 mmol/L (21-32); CREATININE 0.6 mg/dL (0.7-1.3); GLUCOSE,RANDOM 103 mg/dL (74-106); POTASSIUM 4.8 mmol/L (3.5-5.1); SODIUM 137 mmol/L (136-145)
--- NOTE | 2018-02-04 08:47 | PN ---
Teaching Attending Note Name of Resident: Dann Rey ATTENDING PHYSICIAN STATEMENT I saw and evaluated the patient. I reviewed the resident's note and discussed the case with the resident. I agree with the resident's findings and plan as documented with exceptions mentioned below. SUBJECTIVE: Patient seen and examined. reports some low back pain, asking for meds, no new complaints. Motivated to quit and willing to consider [facility]. OBJECTIVE: Vital Signs Period Temp Pulse Resp BP Sys/Arambula Pulse Ox Last 24 Hr 97.9 F-98.9 F 83-105 18-20 97-122/39-66 96-98 Intake & Output 02/01/18 02/02/18 02/03/18 02/04/18 23:59 23:59 23:59 23:59 Intake Total 2730 1780 1020 Output Total 400 1 Balance 2730 1780 620 -1 General lying in bed in no acute distress CVS S1S2 regular Chest CTAB, no rales or wheezing Abdomen soft, NT, ND, positive bowel sounds Musculoskeletal; no spinal tenderness or spasm noted, SLR 50 degrees left 30 degrees right, power 5/5, sensation positive to light touch symmetric Extremities 1-2+ pitting pedal edema Home Medication List Medication Instructions Recorded Confirmed Type NK [No Known Home Medication] 01/29/18 01/29/18 History Active Medications Generic Name Dose Route Start Last Admin Trade Name Freq PRN Reason Stop Dose Admin Albuterol Sulfate 1 amp 01/30/18 03:17 Ventolin 0.083% Nebulizer Soln - NEB Q4H PRN SHORT OF BREATH/WHEEZING Albuterol Sulfate 2 puff 01/30/18 16:41 01/31/18 02:50 Ventolin Hfa Inhaler - IH 2 puff Q4H PRN Administration SHORT OF BREATH/WHEEZING Aspirin 81 mg 01/31/18 10:45 02/03/18 15:42 Asa - PO 81 mg DAILY [facility] Administration Atorvastatin Calcium 10 mg 02/03/18 22:00 02/03/18 22:34 Lipitor - PO 10 mg HS [facility] Administration Ceftriaxone Sodium 1 gm/ 50 mls @ 100 mls/hr 01/31/18 10:00 02/03/18 15:42 Dextrose IVPB 100 mls/hr DAILY [facility] Administration Ibuprofen 400 mg 02/03/18 16:39 02/03/18 22:33 Motrin - PO 400 mg Q4H PRN Administration FEVER Lisinopril 10 mg 02/01/18 15:55 02/03/18 15:07 Prinivil PO Not Given DAILY [facility] Methadone HCl 15 mg 02/01/18 10:00 02/01/18 09:24 Dolophine - PO 02/01/18 23:59 15 mg ONCE ONE Administration Methadone HCl 15 mg 02/02/18 09:30 02/02/18 09:27 Dolophine - PO 02/02/18 23:59 15 mg ONCE ONE Administration Ondansetron HCl 4 mg 01/30/18 16:16 Zofran Odt - SL Q6H PRN NAUSEA AND/OR VOMITING Pantoprazole Sodium 40 mg 02/04/18 10:00 Protonix - PO DAILY [facility] Prednisone 40 mg 02/03/18 10:00 02/03/18 15:42 Deltasone - PO 40 mg DAILY [facility] Administration Multivit/Folic Acid/Iron 1 tab 01/31/18 10:00 02/03/18 15:42 Vitamins (Sjr) - PO 1 tab DAILY [facility] Administration Thiamine HCl 100 mg 01/30/18 22:00 02/03/18 22:34 Vitamin B1 - PO 100 mg HS [facility] Administration Zolpidem Tartrate 10 mg 01/31/18 09:12 Ambien - PO HS PRN INSOMNIA Laboratory Results - last 24 hr 02/04/18 02/04/18 06:35 06:35 WBC 11.3 H D RBC 3.75 L Hgb 11.2 L D Hct 34.5 L MCV 92.1 MCH 29.9 MCHC 32.5 RDW 12.7 Plt Count 254 MPV 8.6 Sodium 137 Potassium 4.8 Chloride 100 Carbon Dioxide 30 Anion Gap 7 L BUN 15 D Creatinine 0.6 L D Random Glucose 103 Calcium 8.6 Microbiology 01/30/18 02:09 Blood - Arterial Blood Culture - Final NO GROWTH AFTER 5 DAYS INCUBATION 01/30/18 02:09 Blood - Arterial Blood Culture - Final NO GROWTH AFTER 5 DAYS INCUBATION 01/31/18 10:15 Urine - Urine Clean Catch Urine Culture - Final NO GROWTH OBTAINED 01/30/18 02:09 Urine - Urine Clean Catch Urine Culture - Preliminary Contaminated: Please Repeat 01/30/18 22:00 Nasopharyngeal Swab Influenza Types A,B Antigen (NEGRO) - Final 01/30/18 22:00 Nasopharyngeal Swab - Final 01/30/18 22:21 Nasopharyngeal Swab Influenza Types A,B Antigen (NEGRO) - Final 01/30/18 22:21 Nasopharyngeal Swab - Final 2D echo results reviewed Stress test results reviewed CT chest results reviewed ASSESSMENT AND PLAN: 47yo M with PMH continuous polysubstance abuse(cocaine/heroin/ETOH) sent from [facility] due to unresponsiveness -Acute toxic metabolic encephalopathy, resolved -Lower uncomplicated UTI -Cardiomyopathy, suspect from polysubstance abuse, Stress results noted -Severe bullous emphysema with calcifed nodularity, suspected calcified pleural plaque with mild exacerbation -Prolonged QTc -Acute heroine/cocaine/ETOH withdrawal, s/p methadone/librium taper (finished ) -Hyponatremia, resolved Plan: Mental statusat baseline, flu swab neg. s/p 5 days of ceftriaxone, urine cx neg, d/c antiboitics. Stress test results noted. Follow up with cardiology, suspect medical management , continue ASA/statin/acei. Hold beta cristhian given active cocaine use. Avoid QTC prolonging meds. s/p methadone/librium taper. continue folate/thiamine/MVI. Inpatient rehab vs outpatient follow up at detox center per patient preference. Pulmonary input apprciated. FOllow up QFT. Hep/HIV, short burst prednisone x 5 days. Leucocytosis, suspect steroid induced, trend for now. Outpatient pulmonary follow up/PET scan. DVTPPx with juvencio. Dispo follow up PT eval, patient willing to consider [facility] as indicated.
--- NOTE | 2018-02-04 10:49 | PN ---
Progress Note, Physician Chief Complaint: Events noted Not in distress except back pain History of Present Illness: Patient was seen and examined. Awake and alert. Chart was reviewed Denies chest pain, SOB or palpitations Mild wheeze - Current Medication List Current Medications: Active Medications Albuterol Sulfate (Ventolin 0.083% Nebulizer Soln -) 1 amp NEB Q4H PRN PRN Reason: SHORT OF BREATH/WHEEZING Albuterol Sulfate (Ventolin Hfa Inhaler -) 2 puff IH Q4H PRN PRN Reason: SHORT OF BREATH/WHEEZING Last Admin: 01/31/18 02:50 Dose: 2 puff Aspirin (Asa -) 81 mg PO DAILY [facility] Last Admin: 02/03/18 15:42 Dose: 81 mg Atorvastatin Calcium (Lipitor -) 10 mg PO HS [facility] Last Admin: 02/03/18 22:34 Dose: 10 mg Ceftriaxone Sodium 1 gm/ (Dextrose) 50 mls @ 100 mls/hr IVPB DAILY [facility] Last Admin: 02/03/18 15:42 Dose: 100 mls/hr Ibuprofen (Motrin -) 400 mg PO Q4H PRN PRN Reason: FEVER Last Admin: 02/03/18 22:33 Dose: 400 mg Lisinopril (Prinivil) 10 mg PO DAILY [facility] Last Admin: 02/03/18 15:07 Dose: Not Given Methadone HCl (Dolophine -) 15 mg PO ONCE ONE Stop: 02/01/18 23:59 Last Admin: 02/01/18 09:24 Dose: 15 mg Methadone HCl (Dolophine -) 15 mg PO ONCE ONE Stop: 02/02/18 23:59 Last Admin: 02/02/18 09:27 Dose: 15 mg Ondansetron HCl (Zofran Odt -) 4 mg SL Q6H PRN PRN Reason: NAUSEA AND/OR VOMITING Pantoprazole Sodium (Protonix -) 40 mg PO DAILY [facility] Prednisone (Deltasone -) 40 mg PO DAILY [facility] Last Admin: 02/03/18 15:42 Dose: 40 mg Multivit/Folic Acid/Iron ( Vitamins (Sjr) -) 1 tab PO DAILY [facility] Last Admin: 02/03/18 15:42 Dose: 1 tab Thiamine HCl (Vitamin B1 -) 100 mg PO HS [facility] Last Admin: 02/03/18 22:34 Dose: 100 mg Zolpidem Tartrate (Ambien -) 10 mg PO HS PRN PRN Reason: INSOMNIA - Objective Vital Signs: Vital Signs Temperature 98.6 F 02/04/18 06:00 Pulse Rate 101 H 02/04/18 06:00 Respiratory Rate 20 02/04/18 06:00 Blood Pressure 116/64 02/04/18 06:00 O2 Sat by Pulse Oximetry (%) 98 02/03/18 21:00 HENT: Yes: Atraumatic Neck: Yes: Supple Cardiovascular: Yes: Regular Rate and Rhythm, S1, S2 Respiratory: Yes: Diminished, Wheezes (Mild expiratory) Gastrointestinal: Yes: Normal Bowel Sounds, Soft. No: Tenderness Edema: No Labs: CBC, BMP 02/04/18 06:35 02/04/18 06:35 Problem List - Problems (1) Cardiomyopathy Code(s): I42.9 - CARDIOMYOPATHY, UNSPECIFIED Qualifiers: Cardiomyopathy type: due to drug Qualified Code(s): I42.7 - Cardiomyopathy due to drug and external agent (2) Toxic metabolic encephalopathy Code(s): G92 - TOXIC ENCEPHALOPATHY (3) Alcohol dependence with uncomplicated withdrawal Code(s): F10.230 - ALCOHOL DEPENDENCE WITH WITHDRAWAL, UNCOMPLICATED (4) Asthma Code(s): J45.909 - UNSPECIFIED ASTHMA, UNCOMPLICATED (5) Cannabis dependence Code(s): F12.20 - CANNABIS DEPENDENCE, UNCOMPLICATED (6) Cocaine dependence Code(s): F14.20 - COCAINE DEPENDENCE, UNCOMPLICATED Qualifiers: Substance use status: in withdrawal Qualified Code(s): F14.23 - Cocaine dependence with withdrawal (7) Nicotine dependence Code(s): F17.200 - NICOTINE DEPENDENCE, UNSPECIFIED, UNCOMPLICATED Assessment/Plan 1. Acute toxic metabolic encephalopathy 2. Cardiomyopathy (moderate decreased LV function) LVEF estimated 37% 3. Polysubstance abuse(cocaine/heroin/ETOH) 4. UTI 5. Elevated troponin referable to demand ischemia PLAN: 1. Continue Lisinopril 10 qd, ASA 81 qd, Lipitor 10 qd. Consider Carvedilol start at 3.125 mg BID 2. Remains on Librium and Methadone taper 3. Counselled on abstinence from substance abuse, refer back to [facility] for continuation of inpatient detox 4. Analgesics PRN Further plans are to follow Stone Dawson MD
[2018-02-04] MEDS ORDERED: PT OWN MED DRAWER 7, Y5N ONE (11:41)
[2018-02-04] MEDS ORDERED: cefTRIAXone SODIUM 1 GM VIAL ONE (11:41)
[2018-02-04] MEDS ORDERED: DEXTROSE 5%-WATER - 50 ML IVPB ONE (11:41)
--- NOTE | 2018-02-04 11:53 | PN ---
Progress Note (short form) - Note Progress Note: Resting in NAD. Breathing feels ok, some dry cough. Back pain. Intake & Output 02/01/18 02/02/18 02/03/18 02/04/18 23:59 23:59 23:59 23:59 Intake Total 2730 1780 1020 Output Total 400 1 Balance 2730 1780 620 -1 Last Vital Signs Temp Pulse Resp BP Pulse Ox 98.6 F 100 H 18 102/60 98 02/04/18 06:00 02/04/18 10:00 02/04/18 10:00 02/04/18 10:00 02/03/18 21:00 Active Medications Albuterol Sulfate (Ventolin 0.083% Nebulizer Soln -) 1 amp NEB Q4H PRN PRN Reason: SHORT OF BREATH/WHEEZING Albuterol Sulfate (Ventolin Hfa Inhaler -) 2 puff IH Q4H PRN PRN Reason: SHORT OF BREATH/WHEEZING Last Admin: 01/31/18 02:50 Dose: 2 puff Aspirin (Asa -) 81 mg PO DAILY [facility] Last Admin: 02/03/18 15:42 Dose: 81 mg Atorvastatin Calcium (Lipitor -) 10 mg PO HS [facility] Last Admin: 02/03/18 22:34 Dose: 10 mg Carvedilol (Coreg -) 3.125 mg PO BID [facility] Ceftriaxone Sodium 1 gm/ (Dextrose) 50 mls @ 100 mls/hr IVPB DAILY [facility] Last Admin: 02/03/18 15:42 Dose: 100 mls/hr Ibuprofen (Motrin -) 400 mg PO Q4H PRN PRN Reason: FEVER Last Admin: 02/03/18 22:33 Dose: 400 mg Lisinopril (Prinivil) 10 mg PO DAILY [facility] Last Admin: 02/03/18 15:07 Dose: Not Given Methadone HCl (Dolophine -) 15 mg PO ONCE ONE Stop: 02/01/18 23:59 Last Admin: 02/01/18 09:24 Dose: 15 mg Methadone HCl (Dolophine -) 15 mg PO ONCE ONE Stop: 02/02/18 23:59 Last Admin: 02/02/18 09:27 Dose: 15 mg Ondansetron HCl (Zofran Odt -) 4 mg SL Q6H PRN PRN Reason: NAUSEA AND/OR VOMITING Pantoprazole Sodium (Protonix -) 40 mg PO DAILY [facility] Prednisone (Deltasone -) 40 mg PO DAILY [facility] Last Admin: 02/03/18 15:42 Dose: 40 mg Multivit/Folic Acid/Iron ( Vitamins (Sjr) -) 1 tab PO DAILY [facility] Last Admin: 02/03/18 15:42 Dose: 1 tab Thiamine HCl (Vitamin B1 -) 100 mg PO [facility] Last Admin: 02/03/18 22:34 Dose: 100 mg Zolpidem Tartrate (Ambien -) 10 mg PO HS PRN PRN Reason: INSOMNIA Constitutional: Yes: NAD Eyes: Yes: WNL HENT: Yes: WNL Neck: Yes: WNL Cardiovascular: Yes: Regular Rate and Rhythm, S1, S2 Respiratory: Yes: Diminished at the bases, no wheeze Gastrointestinal: Yes: Normal Bowel Sounds, Soft Extremities: Yes: WNL Edema: No Labs: Laboratory Results - last 24 hr 02/04/18 02/04/18 06:35 06:35 WBC 11.3 H D RBC 3.75 L Hgb 11.2 L D Hct 34.5 L MCV 92.1 MCH 29.9 MCHC 32.5 RDW 12.7 Plt Count 254 MPV 8.6 Sodium 137 Potassium 4.8 Chloride 100 Carbon Dioxide 30 Anion Gap 7 L BUN 15 D Creatinine 0.6 L D Random Glucose 103 Calcium 8.6 Assessment/Plan Problem List - Problems (1) COPD (chronic obstructive pulmonary disease) with emphysema Code(s): J43.9 - EMPHYSEMA, UNSPECIFIED (2) Altered mental state Code(s): R41.82 - ALTERED MENTAL STATUS, UNSPECIFIED Qualifiers: Altered mental status type: somnolence Qualified Code(s): R40.0 - Somnolence (3) Cardiomyopathy Code(s): I42.9 - CARDIOMYOPATHY, UNSPECIFIED Qualifiers: Cardiomyopathy type: due to drug Qualified Code(s): I42.7 - Cardiomyopathy due to drug and external agent (4) Alcohol dependence with uncomplicated withdrawal Code(s): F10.230 - ALCOHOL DEPENDENCE WITH WITHDRAWAL, UNCOMPLICATED (5) Cannabis dependence Code(s): F12.20 - CANNABIS DEPENDENCE, UNCOMPLICATED (6) Cocaine dependence Code(s): F14.20 - COCAINE DEPENDENCE, UNCOMPLICATED Qualifiers: Substance use status: in withdrawal Qualified Code(s): F14.23 - Cocaine dependence with withdrawal (7) Insomnia secondary to depression with anxiety Code(s): F51.05 - INSOMNIA DUE TO OTHER MENTAL DISORDER; F41.8 - OTHER SPECIFIED ANXIETY DISORDERS Assessment/Plan SEVERE END STAGE BULLOUS EMPHYSEMA/RIGHT UPPER LOBE SUBPLEURAL DENSITY SUBSTANCE ABUSE TOBACCO ABUSE HOMELESS CONSIDER CHANGE ABX TO PO BRONCHODILATORS O2 TO MAINTAIN SATURATION PRE/POST AMB SPO2 PRIOR TO D/C SHORT COURSE OF PO STEROIDS WILL NEED FOLLOWUP IMAGING AFTER DISCHARGE DR SALINAS
[2018-02-04] MEDS: CEFTRIAXONE 1 GM in DEXTROSE 5%-WATER - 50 ML IVPB SCH (11:54)
[2018-02-04] MEDS: IBUPROFEN 400 MG TABLET (FP) PO PRN ×2 (11:55→19:11)
[2018-02-04] MEDS: predniSONE 20 MG TABLET (UD) PO SCH (11:57)
[2018-02-04] MEDS: ASPIRIN 81 MG CHEWABLE TABLETS PO SCH (11:57)
[2018-02-04] MEDS: PANTOPRAZOLE 40 MG TABLET (FP) PO SCH (11:57)
[2018-02-04] MEDS: PRENATAL VITAMINS W/ FOLIC ACID TABLET (FP) PO SCH (11:57)
[2018-02-04] MEDS: LISINOPRIL 10 MG TABLET (FP) PO SCH ×2 (12:01→15:44)
[2018-02-04] MEDS: CARVEDILOL 3.125 MG TABLET (FP) PO SCH ×2 (12:01→21:14)
--- NOTE | 2018-02-04 15:57 | PN ---
[facility] Progress Note (SOAP) Subjective: patient c/o protracted opioid withdrawal sx, ack pain, insomna, anxiety Objective: 02/04/18 16:13 Vital Signs - 24 hr 02/03/18 02/03/18 02/03/18 17:30 18:00 21:00 Temperature 98.9 F 98.2 F Pulse Rate 97 H 87 Respiratory 18 20 20 Rate Blood Pressure 122/66 103/60 O2 Sat by Pulse 97 98 Oximetry (%) 02/04/18 02/04/18 02/04/18 02:00 06:00 09:00 Temperature 98.5 F 98.6 F Pulse Rate 83 101 H Respiratory 20 20 Rate Blood Pressure 110/55 116/64 O2 Sat by Pulse 100 Oximetry (%) 02/04/18 02/04/18 02/04/18 10:00 12:00 13:13 Temperature 97.6 F Pulse Rate 100 H 90 89 Respiratory 18 20 18 Rate Blood Pressure 102/60 107/58 129/59 O2 Sat by Pulse Oximetry (%) Laboratory Results - last 24 hr 02/04/18 02/04/18 06:35 06:35 WBC 11.3 H D RBC 3.75 L Hgb 11.2 L D Hct 34.5 L MCV 92.1 MCH 29.9 MCHC 32.5 RDW 12.7 Plt Count 254 MPV 8.6 Sodium 137 Potassium 4.8 Chloride 100 Carbon Dioxide 30 Anion Gap 7 L BUN 15 D Creatinine 0.6 L D Random Glucose 103 Calcium 8.6 A and O x3, soboe, sitting up out of bed, ambulating without assistance Assessment: 02/04/18 16:13 protracted opioid withdrawal sx - cotn inue 10mg daily while hositalized, can d/ c when discharged, becsue of fragile medical condition patient is not appropriate for drug rehab at [facility].
[2018-02-04] MEDS ORDERED: METHADONE HCL 10 MG TABLET PO ONE (20:15)
[2018-02-04] MEDS: ATORVASTATIN CA 10 MG TABLET (FP) PO SCH (21:14)
[2018-02-04] MEDS: THIAMINE HCL 100 MG TABLET (FP) PO SCH (21:14)
--- NOTE | 2018-02-05 06:09 | PN ---
Physical Exam: SUBJECTIVE: Patient seen and examined - Afebrile, hemo stable. No major overnight events. Plan for d/c to SNF, pt amenable. Seen by Dr. Mcintosh yesterday, restarted on short course of methadone due to protracted withdrawal. -Denies f/c/n/v/d; endorsing "skin-crawling" overnight; Slept well, still with dry cough; amenable to d/c to [facility] OBJECTIVE: Vital Signs Intake & Output 02/02/18 02/03/18 02/04/18 02/05/18 23:59 23:59 23:59 23:59 Intake Total 1780 1020 1100 Output Total 400 1 Balance 4824 167 3081 Period Temp Pulse Resp BP Sys/Arambula Pulse Ox Last 24 Hr 97.6 F-99.1 F 83-100 18-20 102-129/56-64 100-100 GENERAL: Middle aged man, somnolent, A&&Ox3 HEAD: Normal with no signs of trauma. EYES: Extraocular movements intact, sclera anicteric, conjunctiva clear. No ptosis. ENT: Poor dentition. Ears normal, nares patent, oropharynx clear without exudates, moist mucous membranes. NECK: Trachea midline, full range of motion, supple. LUNGS: Diffuse rhonchi in all lung millan, expiratory wheezing L>R HEART: RRR, S1, S2 without murmur, rub or gallop. ABDOMEN: Soft, ND, NT, normoactive bowel sounds; Increased ab tone EXTREMITIES: BL stasis dematitis, 2+ pulses, warm, well-perfused, no edema. NEUROLOGICAL: Cranial nerves II through XII grossly intact. Normal speech, gait not observed. PSYCH: Pleasant, endorsing sensation of "skin crawling" SKIN: Warm, dry, normal turgor Laboratory Results - last 24 hr CBC, BMP 02/05/18 07:20 02/05/18 07:20 02/04/18 06:35 02/04/18 06:35 02/04/18 02/04/18 06:35 06:35 WBC 11.3 H D RBC 3.75 L Hgb 11.2 L D Hct 34.5 L MCV 92.1 MCH 29.9 MCHC 32.5 RDW 12.7 Plt Count 254 MPV 8.6 Sodium 137 Potassium 4.8 Chloride 100 Carbon Dioxide 30 Anion Gap 7 L BUN 15 D Creatinine 0.6 L D Random Glucose 103 Calcium 8.6 Active Medications Generic Name Dose Route Start Last Admin Trade Name Freq PRN Reason Stop Dose Admin Albuterol Sulfate 1 amp 01/30/18 03:17 Ventolin 0.083% Nebulizer Soln - NEB Q4H PRN SHORT OF BREATH/WHEEZING Albuterol Sulfate 2 puff 01/30/18 16:41 01/31/18 02:50 Ventolin Hfa Inhaler - IH 2 puff Q4H PRN Administration SHORT OF BREATH/WHEEZING Aspirin 81 mg 01/31/18 10:45 02/04/18 11:57 Asa - PO 81 mg DAILY [facility] Administration Atorvastatin Calcium 10 mg 02/03/18 22:00 02/04/18 21:14 Lipitor - PO 10 mg HS [facility] Administration Carvedilol 3.125 mg 02/04/18 11:00 02/04/18 21:14 Coreg - PO 3.125 mg BID [facility] Administration Ceftriaxone Sodium 1 gm/ 50 mls @ 100 mls/hr 01/31/18 10:00 02/04/18 11:54 Dextrose IVPB 100 mls/hr DAILY [facility] Administration Ibuprofen 400 mg 02/03/18 16:39 02/04/18 19:11 Motrin - PO 400 mg Q4H PRN Administration FEVER Lisinopril 10 mg 02/01/18 15:55 02/04/18 15:44 Prinivil PO 10 mg DAILY [facility] Administration Methadone HCl 15 mg 02/01/18 10:00 02/01/18 09:24 Dolophine - PO 02/01/18 23:59 15 mg ONCE ONE Administration Methadone HCl 15 mg 02/02/18 09:30 02/02/18 09:27 Dolophine - PO 02/02/18 23:59 15 mg ONCE ONE Administration Methadone HCl 10 mg 02/04/18 16:15 Dolophine - PO DAILY@0600 [facility] Ondansetron HCl 4 mg 01/30/18 16:16 Zofran Odt - SL Q6H PRN NAUSEA AND/OR VOMITING Pantoprazole Sodium 40 mg 02/04/18 10:00 02/04/18 11:57 Protonix - PO 40 mg DAILY [facility] Administration Prednisone 40 mg 02/03/18 10:00 02/04/18 11:57 Deltasone - PO 40 mg DAILY [facility] Administration Multivit/Folic Acid/Iron 1 tab 01/31/18 10:00 02/04/18 11:57 Vitamins (Sjr) - PO 1 tab DAILY [facility] Administration Thiamine HCl 100 mg 01/30/18 22:00 02/04/18 21:14 Vitamin B1 - PO 100 mg HS [facility] Administration Zolpidem Tartrate 10 mg 01/31/18 09:12 Ambien - PO HS PRN INSOMNIA Microbiology 01/30/18 02:09 Blood - Arterial Blood Culture - Final NO GROWTH AFTER 5 DAYS INCUBATION 01/30/18 02:09 Blood - Arterial Blood Culture - Final NO GROWTH AFTER 5 DAYS INCUBATION 01/31/18 10:15 Urine - Urine Clean Catch Urine Culture - Final NO GROWTH OBTAINED 01/30/18 02:09 Urine - Urine Clean Catch Urine Culture - Preliminary Contaminated: Please Repeat 01/30/18 22:00 Nasopharyngeal Swab Influenza Types A,B Antigen (NEGRO) - Final 01/30/18 22:00 Nasopharyngeal Swab - Final 01/30/18 22:21 Nasopharyngeal Swab Influenza Types A,B Antigen (NEGRO) - Final 01/30/18 22:21 Nasopharyngeal Swab - Final CXR 01/30: bullous findings with coarse changes. ill defined density by anterior aspect of third rib Carotid doppler 01/30 - Distal thickening of left/right carotid artery. Poor exam. EKG 01/29 : normal sinus with PAC's, t wave inversions v4-v6, QT prolongation Qtc >500ms EKG 01/30 - Rate 76, NAD, QTC 499, ST elevation in v3, twI in v4/v5 ECHO 01/30 - EF 38%, moderately reduced LV function, global hypokinesis of LV; normal RV size and function; trace MR/TR CT chest 02/01 - Impression: Severe bullous emphysematous changes Partially calcified nodularity adjacent to the right third rib probably pleural-based probably a chronic type partially calcified pleural plaque Left lower lobe consolidation with air bronchograms suspicious for inflammation or infection Cardiac nuclear stress test 02/03 - negative. Global hypokinesia, LV dilatation, EF of 37% ASSESSMENT/PLAN: 47 y/o homeless man with PMH of heroin, alcohol, cocaine, marijuana dependence, asthma, anxiety, depression, and insomnia, brought in from [facility] d/t [facility]. Pt rejected from all rehab centers. Will d/c home tomorrow with outpt f/u. #Cardiomyopathy -troponins with no significant increase from 0.14->0.16 -> 0.10 ; EKG unremarkable - cardiac monitoring - Echo w/ global hypokinesis of LV - Stress test negative with evidence of global hypokinesia. No further work-up required as inpt - c/w lisinopril, lipitor and asa - Started on coreg today per cardiology #Alcohol/heroin/cocaine withdrawal - on methadone, librium taper - continued on low dose methadone course per Dr. Mcintosh due to protracted withdrawal - Detox team consulted, recs appreciated - finished librium protocol - Thiamine 100mg PO qd, Folic acid 1mg PO qd - ambien for insomnia - Walked 60 ft w/ PT today, more stable #UTI/leukocytosis - UA 01/30 2+ leuk esterase, 85 WBCs; Borderline WBC elevated 11.6 today -Rocephin 1g qD day 7; d/c abx tomorrow on d/c; no further symptoms -Urine cx negative -flu swab negative - consider repeat UA in AM #Back pain - Pain control with tylenol - If persistent pain, consider imaging to assess for any occult fx however likely soft tissue injury #Qt prolongation - qtc 457 on repeat ekg -Avoid QT prolonging agents - serial ekgs #Abnormal CXR - bullous dz, suspicious density - CT chest with calcified density, bullous dz - pulm consulted - will require outpt f/u - consider possible bx - PET scan as outpt #Asthma -Albuterol q4h PRN for SOB/wheezing - pre/post - 5 day burst steroid PO prednisone course. Day 2 - avoid oversedation #BL stasis dermatitis -wound care as outpt #F/E/N PO hydration daily bmps Regular diet #PPX Lovenox #Dispo- D/c home tomorrow Plan discussed with attending, Dr. Sravanthi Rey, PGY1 Visit type - Emergency Visit Emergency Visit: Yes ED Registration Date: 01/30/18 Care time: The patient presented to the Emergency Department on the above date and was hospitalized for further evaluation of their emergent condition. - New Patient This patient is new to me today: No - Critical Care Critical Care patient: No
[2018-02-05 07:35] LABS: HEMATOCRIT 35.1 % (35.4-49); HEMOGLOBIN 11.1 GM/dL (11.7-16.9); MCH 29.7 pg (25.7-33.7); MCHC 31.7 g/dl (32.0-35.9); MEAN CELL VOLUME 93.5 fl (80-96); MEAN PLT VOLUME 8.7 fl (7.5-11.1); PLATELET COUNT 281 K/MM3 (134-434); RBC 3.75 M/mm3 (4.00-5.60); RDW 12.9 % (11.9-15.9); WHITE BLOOD COUNT 11.6 K/mm3 (4.0-10.0)
[2018-02-05 08:12] LABS: ANION GAP 8 (8-16); BLOOD UREA NITROGEN 18 mg/dL (7-18); CALCIUM 8.6 mg/dL (8.5-10.1); CHLORIDE 101 mmol/L (98-107); CO2 32 mmol/L (21-32); CREATININE 0.7 mg/dL (0.7-1.3); GLUCOSE,RANDOM 97 mg/dL (74-106); POTASSIUM 4.5 mmol/L (3.5-5.1); SODIUM 141 mmol/L (136-145)
[2018-02-05] MEDS ORDERED: cefTRIAXone SODIUM 1 GM VIAL ONE (10:12)
[2018-02-05] MEDS ORDERED: DEXTROSE 5%-WATER - 50 ML IVPB ONE (10:13)
[2018-02-05] MEDS: PANTOPRAZOLE 40 MG TABLET (FP) PO SCH (10:21)
[2018-02-05] MEDS: CEFTRIAXONE 1 GM in DEXTROSE 5%-WATER - 50 ML IVPB SCH (10:21)
[2018-02-05] MEDS: CARVEDILOL 3.125 MG TABLET (FP) PO SCH ×2 (10:21→21:51)
[2018-02-05] MEDS: predniSONE 20 MG TABLET (UD) PO SCH (10:21)
[2018-02-05] MEDS: ASPIRIN 81 MG CHEWABLE TABLETS PO SCH (10:21)
[2018-02-05] MEDS: PRENATAL VITAMINS W/ FOLIC ACID TABLET (FP) PO SCH (10:28)
[2018-02-05] MEDS: LISINOPRIL 10 MG TABLET (FP) PO SCH (10:35)
--- NOTE | 2018-02-05 12:08 | PN ---
Progress Note, Physician History of Present Illness: He denies chest pain or dyspnea. - Current Medication List Current Medications: Active Medications Albuterol Sulfate (Ventolin 0.083% Nebulizer Soln -) 1 amp NEB Q4H PRN PRN Reason: SHORT OF BREATH/WHEEZING Albuterol Sulfate (Ventolin Hfa Inhaler -) 2 puff IH Q4H PRN PRN Reason: SHORT OF BREATH/WHEEZING Last Admin: 01/31/18 02:50 Dose: 2 puff Aspirin (Asa -) 81 mg PO DAILY [facility] Last Admin: 02/05/18 10:21 Dose: 81 mg Atorvastatin Calcium (Lipitor -) 10 mg PO HS [facility] Last Admin: 02/04/18 21:14 Dose: 10 mg Carvedilol (Coreg -) 3.125 mg PO BID [facility] Last Admin: 02/05/18 10:21 Dose: Not Given Ceftriaxone Sodium 1 gm/ (Dextrose) 50 mls @ 100 mls/hr IVPB DAILY [facility] Last Admin: 02/05/18 10:21 Dose: 100 mls/hr Ibuprofen (Motrin -) 400 mg PO Q4H PRN PRN Reason: FEVER Last Admin: 02/04/18 19:11 Dose: 400 mg Lisinopril (Prinivil) 10 mg PO DAILY [facility] Last Admin: 02/05/18 10:35 Dose: Not Given Methadone HCl (Dolophine -) 15 mg PO ONCE ONE Stop: 02/01/18 23:59 Last Admin: 02/01/18 09:24 Dose: 15 mg Methadone HCl (Dolophine -) 15 mg PO ONCE ONE Stop: 02/02/18 23:59 Last Admin: 02/02/18 09:27 Dose: 15 mg Methadone HCl (Dolophine -) 10 mg PO DAILY@0600 [facility] Ondansetron HCl (Zofran Odt -) 4 mg SL Q6H PRN PRN Reason: NAUSEA AND/OR VOMITING Pantoprazole Sodium (Protonix -) 40 mg PO DAILY [facility] Last Admin: 02/05/18 10:21 Dose: 40 mg Prednisone (Deltasone -) 40 mg PO DAILY [facility] Last Admin: 02/05/18 10:21 Dose: 40 mg Multivit/Folic Acid/Iron ( Vitamins (Sjr) -) 1 tab PO DAILY [facility] Last Admin: 02/05/18 10:28 Dose: 1 tab Thiamine HCl (Vitamin B1 -) 100 mg PO HS [facility] Last Admin: 02/04/18 21:14 Dose: 100 mg Zolpidem Tartrate (Ambien -) 10 mg PO HS PRN PRN Reason: INSOMNIA - Objective Vital Signs: Vital Signs Temperature 98.0 F 02/05/18 06:00 Pulse Rate 84 02/05/18 06:00 Respiratory Rate 18 02/05/18 06:00 Blood Pressure 109/58 02/05/18 06:00 O2 Sat by Pulse Oximetry (%) 100 02/04/18 21:00 Constitutional: Yes: No Distress, Calm, Thin Neck: Yes: Supple Cardiovascular: Yes: Regular Rate and Rhythm Respiratory: Yes: Regular, Diminished Gastrointestinal: Yes: Normal Bowel Sounds, Soft Edema: No Labs: CBC, BMP 02/05/18 07:20 02/05/18 07:20 INR, PTT INR 1.19 (0.82-1.09) H 01/29/18 23:50 Problem List - Problems (1) Cardiomyopathy Code(s): I42.9 - CARDIOMYOPATHY, UNSPECIFIED Qualifiers: Cardiomyopathy type: due to drug Qualified Code(s): I42.7 - Cardiomyopathy due to drug and external agent (2) Toxic metabolic encephalopathy Code(s): G92 - TOXIC ENCEPHALOPATHY (3) Altered mental state Code(s): R41.82 - ALTERED MENTAL STATUS, UNSPECIFIED Qualifiers: Altered mental status type: somnolence Qualified Code(s): R40.0 - Somnolence (4) Alcohol dependence with uncomplicated withdrawal Code(s): F10.230 - ALCOHOL DEPENDENCE WITH WITHDRAWAL, UNCOMPLICATED (5) Cocaine dependence Code(s): F14.20 - COCAINE DEPENDENCE, UNCOMPLICATED Qualifiers: Substance use status: in withdrawal Qualified Code(s): F14.23 - Cocaine dependence with withdrawal (6) Opioid dependence with withdrawal Code(s): F11.23 - OPIOID DEPENDENCE WITH WITHDRAWAL Assessment/Plan 01/30/2018 Echo: Normal LV size with moderate decrease LV fxn, tr MR, tr TR 02/03/2018 Myoview: No ischemia, LVEF 37% 1. Acute toxic metabolic encephalopathy 2. Cardiomyopathy (moderate decreased LV function) LVEF estimated 37% 3. Polysubstance abuse(cocaine/heroin/ETOH) 4. UTI 5. Elevated troponin referable to demand ischemia 6. Severe end-stage bullous emphysema/RUL subpleural density 7. Homeless PLAN: 1. Continue Lisinopril 10 qd, ASA 81 qd, Lipitor 10 qd. Started Carvedilol 3.125 mg BID 2. Completed Librium detox and maintained on Methadone taper 3. Counselled on abstinence from substance abuse 4. Analgesics PRN, BD prn, empiric abx course, oral steroid taper, ideally f/u imaging if social support in place
--- NOTE | 2018-02-05 15:42 | PN ---
Teaching Attending Note Name of Resident: Dann Rey ATTENDING PHYSICIAN STATEMENT I saw and evaluated the patient. I reviewed the resident's note and discussed the case with the resident. I agree with the resident's findings and plan as documented with exceptions mentioned below. SUBJECTIVE: Patient seen and examined. no complaints. OBJECTIVE: Vital Signs Period Temp Pulse Resp BP Sys/Arambula Pulse Ox Last 24 Hr 97.8 F-99.1 F 83-100 18-19 98-124/40-64 100-100 Intake & Output 02/02/18 02/03/18 02/04/18 02/05/18 23:59 23:59 23:59 23:59 Intake Total 1780 1020 1100 Output Total 400 1 200 Balance 6725 978 7485 -200 General: sleeping comfortably in bed, in no acute distress Home Medication List Medication Instructions Recorded Confirmed Type NK [No Known Home Medication] 01/29/18 01/29/18 History Active Medications Generic Name Dose Route Start Last Admin Trade Name Freq PRN Reason Stop Dose Admin Acetaminophen 500 mg 02/05/18 13:31 Tylenol - PO Q4H PRN PAIN LEVEL 1-5 Albuterol Sulfate 1 amp 01/30/18 03:17 Ventolin 0.083% Nebulizer Soln - NEB Q4H PRN SHORT OF BREATH/WHEEZING Albuterol Sulfate 2 puff 01/30/18 16:41 01/31/18 02:50 Ventolin Hfa Inhaler - IH 2 puff Q4H PRN Administration SHORT OF BREATH/WHEEZING Aspirin 81 mg 01/31/18 10:45 02/05/18 10:21 Asa - PO 81 mg DAILY [facility] Administration Atorvastatin Calcium 10 mg 02/03/18 22:00 02/04/18 21:14 Lipitor - PO 10 mg HS [facility] Administration Carvedilol 3.125 mg 02/04/18 11:00 02/05/18 10:21 Coreg - PO Not Given BID [facility] Ceftriaxone Sodium 1 gm/ 50 mls @ 100 mls/hr 01/31/18 10:00 02/05/18 10:21 Dextrose IVPB 100 mls/hr DAILY [facility] Administration Lisinopril 10 mg 02/01/18 15:55 02/05/18 10:35 Prinivil PO Not Given DAILY [facility] Methadone HCl 15 mg 02/01/18 10:00 02/01/18 09:24 Dolophine - PO 02/01/18 23:59 15 mg ONCE ONE Administration Methadone HCl 15 mg 02/02/18 09:30 02/02/18 09:27 Dolophine - PO 02/02/18 23:59 15 mg ONCE ONE Administration Methadone HCl 10 mg 02/05/18 15:45 Dolophine - PO DAILY@0600 [facility] Ondansetron HCl 4 mg 01/30/18 16:16 Zofran Odt - SL Q6H PRN NAUSEA AND/OR VOMITING Pantoprazole Sodium 40 mg 02/04/18 10:00 02/05/18 10:21 Protonix - PO 40 mg DAILY [facility] Administration Prednisone 40 mg 02/03/18 10:00 02/05/18 10:21 Deltasone - PO 40 mg DAILY [facility] Administration Multivit/Folic Acid/Iron 1 tab 01/31/18 10:00 02/05/18 10:28 Vitamins (Sjr) - PO 1 tab DAILY [facility] Administration Thiamine HCl 100 mg 01/30/18 22:00 02/04/18 21:14 Vitamin B1 - PO 100 mg HS [facility] Administration Zolpidem Tartrate 10 mg 01/31/18 09:12 Ambien - PO HS PRN INSOMNIA Laboratory Results - last 24 hr 02/05/18 02/05/18 07:20 07:20 WBC 11.6 H RBC 3.75 L Hgb 11.1 L Hct 35.1 L MCV 93.5 MCH 29.7 MCHC 31.7 L RDW 12.9 Plt Count 281 MPV 8.7 Sodium 141 Potassium 4.5 Chloride 101 Carbon Dioxide 32 Anion Gap 8 BUN 18 Creatinine 0.7 Random Glucose 97 Calcium 8.6 Microbiology 01/30/18 02:09 Blood - Arterial Blood Culture - Final NO GROWTH AFTER 5 DAYS INCUBATION 01/30/18 02:09 Blood - Arterial Blood Culture - Final NO GROWTH AFTER 5 DAYS INCUBATION 01/31/18 10:15 Urine - Urine Clean Catch Urine Culture - Final NO GROWTH OBTAINED 01/30/18 02:09 Urine - Urine Clean Catch Urine Culture - Preliminary Contaminated: Please Repeat 01/30/18 22:00 Nasopharyngeal Swab Influenza Types A,B Antigen (NEGRO) - Final 01/30/18 22:00 Nasopharyngeal Swab - Final 01/30/18 22:21 Nasopharyngeal Swab Influenza Types A,B Antigen (NEGRO) - Final 01/30/18 22:21 Nasopharyngeal Swab - Final ASSESSMENT AND PLAN: 47yo M with PMH continuous polysubstance abuse(cocaine/heroin/ETOH) sent from [facility] due to unresponsiveness -Acute toxic metabolic encephalopathy, resolved -Lower uncomplicated UTI -Cardiomyopathy, suspect from polysubstance abuse, Stress results noted -Severe bullous emphysema with calcifed nodularity, suspected calcified pleural plaque with mild exacerbation -Prolonged QTc -Acute heroine/cocaine/ETOH withdrawal, s/p methadone/librium taper (finished ) -Hyponatremia, resolved Plan: Mental status at baseline, flu swab neg. s/p 5 days of ceftriaxone, urine cx neg, Off antiboitics. Stress test results noted. Medical management, continue ASA/statin/acei. Started on coreg, monitor for now. Avoid QTC prolonging meds. s/p methadone/librium taper. continue folate/thiamine/MVI. Inpatient rehab vs outpatient follow up at detox center per patient preference. Dr. Reyes's input noted, plan for methadone while in the hospital, for protracted withdrawal. Pulmonary input apprciated. FOllow up QFT. Hep/HIV, short burst prednisone x 5 days. Leucocytosis, suspect steroid induced, trend for now. Outpatient pulmonary follow up/PET scan. DVTPPx with hearcharly. Dispo PT jer noted, CM working on [facility]. continue inpatient PT in the interim.
[2018-02-05] MEDS: METHADONE HCL 10 MG TABLET PO SCH (16:19)
--- NOTE | 2018-02-05 16:36 | PN ---
Progress Note, Physician History of Present Illness: pulmonary alert,feeling better,-cp,-sob,+ cough - Current Medication List Current Medications: Active Medications Acetaminophen (Tylenol -) 500 mg PO Q4H PRN PRN Reason: PAIN LEVEL 1-5 Albuterol Sulfate (Ventolin 0.083% Nebulizer Soln -) 1 amp NEB Q4H PRN PRN Reason: SHORT OF BREATH/WHEEZING Albuterol Sulfate (Ventolin Hfa Inhaler -) 2 puff IH Q4H PRN PRN Reason: SHORT OF BREATH/WHEEZING Last Admin: 01/31/18 02:50 Dose: 2 puff Aspirin (Asa -) 81 mg PO DAILY [facility] Last Admin: 02/05/18 10:21 Dose: 81 mg Atorvastatin Calcium (Lipitor -) 10 mg PO HS [facility] Last Admin: 02/04/18 21:14 Dose: 10 mg Carvedilol (Coreg -) 3.125 mg PO BID [facility] Last Admin: 02/05/18 10:21 Dose: Not Given Ceftriaxone Sodium 1 gm/ (Dextrose) 50 mls @ 100 mls/hr IVPB DAILY [facility] Last Admin: 02/05/18 10:21 Dose: 100 mls/hr Lisinopril (Prinivil) 10 mg PO DAILY [facility] Last Admin: 02/05/18 10:35 Dose: Not Given Methadone HCl (Dolophine -) 15 mg PO ONCE ONE Stop: 02/01/18 23:59 Last Admin: 02/01/18 09:24 Dose: 15 mg Methadone HCl (Dolophine -) 15 mg PO ONCE ONE Stop: 02/02/18 23:59 Last Admin: 02/02/18 09:27 Dose: 15 mg Methadone HCl (Dolophine -) 10 mg PO DAILY@0600 [facility] Last Admin: 02/05/18 16:19 Dose: 10 mg Ondansetron HCl (Zofran Odt -) 4 mg SL Q6H PRN PRN Reason: NAUSEA AND/OR VOMITING Pantoprazole Sodium (Protonix -) 40 mg PO DAILY [facility] Last Admin: 02/05/18 10:21 Dose: 40 mg Prednisone (Deltasone -) 40 mg PO DAILY [facility] Last Admin: 02/05/18 10:21 Dose: 40 mg Multivit/Folic Acid/Iron ( Vitamins (Sjr) -) 1 tab PO DAILY [facility] Last Admin: 02/05/18 10:28 Dose: 1 tab Thiamine HCl (Vitamin B1 -) 100 mg PO HS [facility] Last Admin: 02/04/18 21:14 Dose: 100 mg Zolpidem Tartrate (Ambien -) 10 mg PO HS PRN PRN Reason: INSOMNIA - Objective Vital Signs: Vital Signs Temperature 98.2 F 02/05/18 14:46 Pulse Rate 100 H 02/05/18 14:46 Respiratory Rate 18 02/05/18 14:46 Blood Pressure 124/59 02/05/18 14:46 O2 Sat by Pulse Oximetry (%) 100 02/05/18 09:00 Constitutional: Yes: Well Nourished, Calm Eyes: Yes: WNL HENT: Yes: WNL Neck: Yes: WNL Cardiovascular: Yes: Regular Rate and Rhythm, S1, S2 Respiratory: Yes: Diminished Gastrointestinal: Yes: Normal Bowel Sounds, Soft Extremities: Yes: WNL Edema: No Labs: CBC, BMP 02/05/18 07:20 02/05/18 07:20 INR, PTT INR 1.19 (0.82-1.09) H 01/29/18 23:50 Assessment/Plan Problem List - Problems (1) COPD (chronic obstructive pulmonary disease) with emphysema Code(s): J43.9 - EMPHYSEMA, UNSPECIFIED (2) Altered mental state Code(s): R41.82 - ALTERED MENTAL STATUS, UNSPECIFIED Qualifiers: Altered mental status type: somnolence Qualified Code(s): R40.0 - Somnolence (3) Cardiomyopathy Code(s): I42.9 - CARDIOMYOPATHY, UNSPECIFIED Qualifiers: Cardiomyopathy type: due to drug Qualified Code(s): I42.7 - Cardiomyopathy due to drug and external agent (4) Alcohol dependence with uncomplicated withdrawal Code(s): F10.230 - ALCOHOL DEPENDENCE WITH WITHDRAWAL, UNCOMPLICATED (5) Cannabis dependence Code(s): F12.20 - CANNABIS DEPENDENCE, UNCOMPLICATED (6) Cocaine dependence Code(s): F14.20 - COCAINE DEPENDENCE, UNCOMPLICATED Qualifiers: Substance use status: in withdrawal Qualified Code(s): F14.23 - Cocaine dependence with withdrawal (7) Insomnia secondary to depression with anxiety Code(s): F51.05 - INSOMNIA DUE TO OTHER MENTAL DISORDER; F41.8 - OTHER SPECIFIED ANXIETY DISORDERS Assessment/Plan SEVERE END STAGE BULLOUS EMPHYSEMA/RIGHT UPPER LOBE SUBPLEURAL DENSITY SUBSTANCE ABUSE TOBACCO ABUSE HOMELESS AGREE WITH ANTIBIOTICS/ BRONCHODILATORS/ O2 TO KEEP SAT GREATER THAN 90%(WILL LIKLEY NEED WITH EXERTION) PRE/POST AMB SPO2 BRIEF COURSE OF STEROIDS WOULD CHECK HEPATITIS SEROLOGY/HIV/PPD STATUS SOCIAL ISSUES WILL MAKE EFFECTIVE TREATMENT PLAN CHALLENGING AVOID OVERSEDATION DENSITY SEEN ON CT CHEST HAS A RIM OF CALCIFICATION/ NEEDLE BX MAY IMPART RISK OF PTX GIVEN DIFFUSE LARGE BULLA SEEN ON CT PET SCAN OUTPATIENT DR LAMAR
[2018-02-05] MEDS: THIAMINE HCL 100 MG TABLET (FP) PO SCH (21:51)
[2018-02-05] MEDS: ATORVASTATIN CA 10 MG TABLET (FP) PO SCH (21:51)
[2018-02-05] MEDS: ACETAMINOPHEN 500 MG TABLET (FP) PO PRN (21:56)
[2018-02-06] MEDS: ALBUTEROL SO4 18 GM HFA INHALER IH PRN (06:29)
--- NOTE | 2018-02-06 06:36 | PN ---
Physical Exam: SUBJECTIVE: Patient seen and examined by me this AM - no overnight events, hemo stable, afebrile; Pt denies f/c/n/v/d, cp, sob, ab pain, rashes, peripheral numbness/weakness; still complaining of lower back pain , worsened by movement; Pt rejected from all rehab centers yesterday; will d/c home, with outpt f/u OBJECTIVE: Vital Signs Intake & Output 02/03/18 02/04/18 02/05/18 02/06/18 23:59 23:59 23:59 23:59 Intake Total 1020 1100 800 0 Output Total 400 1 200 Balance 620 1099 600 0 Period Temp Pulse Resp BP Sys/Ar[place]ula Pulse Ox Last 24 Hr 97.8 F-99.0 F 53-100 18-19 98-128/40-67 100-100 GENERAL: Middle aged man, A&&Ox3, NAD HEAD: Normal with no signs of trauma. EYES: Extraocular movements intact, sclera anicteric, conjunctiva clear. No ptosis. ENT: Poor dentition. Ears normal, nares patent, oropharynx clear without exudates, moist mucous membranes. NECK: Trachea midline, full range of motion, supple. LUNGS: Diffuse rhonchi in all lung millan, trace expiratory wheezing L>R HEART: RRR, S1, S2 without murmur, rub or gallop. ABDOMEN: Soft, ND, NT, normoactive bowel sounds. Pain in lower back on palpation , focal swelling in midline at iliac crest, no gross deformities noted. EXTREMITIES: Still w/ BL stasis dematitis, 2+ pulses, warm, well-perfused, no edema. NEUROLOGICAL: Cranial nerves II through XII grossly intact. Normal speech, gait not observed. PSYCH: Pleasant, denies hallucinations SKIN: Warm, dry, normal turgor Laboratory Results - last 24 hr CBC, BMP 02/05/18 07:20 02/05/18 07:20 02/03/18 02/05/18 02/05/18 06:45 07:20 07:20 WBC 11.6 H RBC 3.75 L Hgb 11.1 L Hct 35.1 L MCV 93.5 MCH 29.7 MCHC 31.7 L RDW 12.9 Plt Count 281 MPV 8.7 Sodium 141 Potassium 4.5 Chloride 101 Carbon Dioxide 32 Anion Gap 8 BUN 18 Creatinine 0.7 Random Glucose 97 Calcium 8.6 TB Test (QFT) Negative Active Medications Generic Name Dose Route Start Last Admin Trade Name Freq PRN Reason Stop Dose Admin Acetaminophen 500 mg 02/05/18 13:31 02/05/18 21:56 Tylenol - PO 500 mg Q4H PRN Administration PAIN LEVEL 1-5 Albuterol Sulfate 1 amp 01/30/18 03:17 Ventolin 0.083% Nebulizer Soln - NEB Q4H PRN SHORT OF BREATH/WHEEZING Albuterol Sulfate 2 puff 01/30/18 16:41 02/06/18 06:29 Ventolin Hfa Inhaler - IH 2 puff Q4H PRN Administration SHORT OF BREATH/WHEEZING Aspirin 81 mg 01/31/18 10:45 02/05/18 10:21 Asa - PO 81 mg DAILY [facility] Administration Atorvastatin Calcium 10 mg 02/03/18 22:00 02/05/18 21:51 Lipitor - PO 10 mg HS [facility] Administration Carvedilol 3.125 mg 02/04/18 11:00 02/05/18 21:51 Coreg - PO 3.125 mg BID [facility] Administration Enoxaparin Sodium 40 mg 02/06/18 10:00 Lovenox - SQ DAILY [facility] Ceftriaxone Sodium 1 gm/ 50 mls @ 100 mls/hr 01/31/18 10:00 02/05/18 10:21 Dextrose IVPB 100 mls/hr DAILY [facility] Administration Lisinopril 10 mg 02/01/18 15:55 02/05/18 10:35 Prinivil PO Not Given DAILY [facility] Methadone HCl 15 mg 02/01/18 10:00 02/01/18 09:24 Dolophine - PO 02/01/18 23:59 15 mg ONCE ONE Administration Methadone HCl 15 mg 02/02/18 09:30 02/02/18 09:27 Dolophine - PO 02/02/18 23:59 15 mg ONCE ONE Administration Methadone HCl 10 mg 02/05/18 15:45 02/05/18 16:19 Dolophine - PO 10 mg DAILY@0600 [facility] Administration Ondansetron HCl 4 mg 01/30/18 16:16 Zofran Odt - SL Q6H PRN NAUSEA AND/OR VOMITING Pantoprazole Sodium 40 mg 02/04/18 10:00 02/05/18 10:21 Protonix - PO 40 mg DAILY [facility] Administration Prednisone 40 mg 02/03/18 10:00 02/05/18 10:21 Deltasone - PO 40 mg DAILY [facility] Administration Multivit/Folic Acid/Iron 1 tab 01/31/18 10:00 02/05/18 10:28 Vitamins (Sjr) - PO 1 tab DAILY [facility] Administration Thiamine HCl 100 mg 01/30/18 22:00 02/05/18 21:51 Vitamin B1 - PO 100 mg HS [facility] Administration Zolpidem Tartrate 10 mg 01/31/18 09:12 Ambien - PO HS PRN INSOMNIA Microbiology 01/30/18 02:09 Urine - Urine Clean Catch Urine Culture - Final Contaminated: Please Repeat 01/30/18 02:09 Blood - Arterial Blood Culture - Final NO GROWTH AFTER 5 DAYS INCUBATION 01/30/18 02:09 Blood - Arterial Blood Culture - Final NO GROWTH AFTER 5 DAYS INCUBATION 01/31/18 10:15 Urine - Urine Clean Catch Urine Culture - Final NO GROWTH OBTAINED 01/30/18 22:00 Nasopharyngeal Swab Influenza Types A,B Antigen (NEGRO) - Final 01/30/18 22:00 Nasopharyngeal Swab - Final 01/30/18 22:21 Nasopharyngeal Swab Influenza Types A,B Antigen (NEGRO) - Final 01/30/18 22:21 Nasopharyngeal Swab - Final CXR 01/30: bullous findings with coarse changes. ill defined density by anterior aspect of third rib Carotid doppler 01/30 - Distal thickening of left/right carotid artery. Poor exam. EKG 01/29 : normal sinus with PAC's, t wave inversions v4-v6, QT prolongation Qtc >500ms EKG 01/30 - Rate 76, NAD, QTC 499, ST elevation in v3, twI in v4/v5 ECHO 01/30 - EF 38%, moderately reduced LV function, global hypokinesis of LV; normal RV size and function; trace MR/TR CT chest 02/01 - Impression: Severe bullous emphysematous changes Partially calcified nodularity adjacent to the right third rib probably pleural-based probably a chronic type partially calcified pleural plaque Left lower lobe consolidation with air bronchograms suspicious for inflammation or infection Cardiac nuclear stress test 02/03 - negative. Global hypokinesia, LV dilatation, EF of 37% Lumbar spine XR 02/06 - pending ASSESSMENT/PLAN: 47 y/o homeless man with PMH of heroin, alcohol, cocaine, marijuana dependence, asthma, anxiety, depression, and insomnia, brought in from [facility] d/t [facility]. Pt rejected from all rehab centers. Plan for d/c home tomorrow after optimization with PT. #Cardiomyopathy -troponins with no significant increase from 0.14->0.16 -> 0.10 ; EKG unremarkable - cardiac monitoring - Echo w/ global hypokinesis of LV - Stress test negative with evidence of global hypokinesia. No further work-up required as inpt - c/w lisinopril, lipitor and asa - Coreg BID #Alcohol/heroin/cocaine withdrawal - on methadone, librium taper - continued on low dose methadone course per Dr. Mcintosh due to protracted withdrawal - Detox team consulted, recs appreciated - finished librium protocol - Thiamine 100mg PO qd, Folic acid 1mg PO qd - ambien for insomnia - Walked 65 ft w/ PT today, unsteady gait; notably diaphoretic after ambulation #back pain - inconsistent presentation of pain; no gross evidence of trauma on exam - lumbar/sacral XR - Tylenol for pain control; high threshold for additional pain medication given hx of drug abuse #UTI/leukocytosis - UA 01/30 2+ leuk esterase, 85 WBCs; Borderline WBC elevated 11.6 today -rocephin d/c'ed yesterday -Urine cx negative -flu swab negative - consider repeat UA in AM #Back pain - Pain control with tylenol - If persistent pain, consider imaging to assess for any occult fx however likely soft tissue injury #Qt prolongation - qtc 457 on repeat ekg -Avoid QT prolonging agents - serial ekgs #Abnormal CXR - bullous dz, suspicious density - CT chest with calcified density, bullous dz - pulm consulted - will require outpt f/u - consider possible bx - PET scan as outpt #Asthma -Albuterol q4h PRN for SOB/wheezing - pre/post - 5 day burst steroid PO prednisone course. Day 4 - avoid oversedation #BL stasis dermatitis -wound care as outpt #F/E/N PO hydration daily bmps Regular diet #PPX Lovenox #Dispo- D/c home tomorrow AM after additional PT optimization Plan discussed with attending, Dr. Sravanthi Rey, PGY1 Visit type - Emergency Visit Emergency Visit: Yes ED Registration Date: 01/30/18 Care time: The patient presented to the Emergency Department on the above date and was hospitalized for further evaluation of their emergent condition. - New Patient This patient is new to me today: No - Critical Care Critical Care patient: No
[2018-02-06] MEDS ORDERED: PT OWN MED DRAWER 7, Y5N ONE ×2 (07:00→10:58)
--- NOTE | 2018-02-06 08:52 | PN ---
[facility] Progress Note (SOAP) Subjective: c/o protracted opoidi ruth quezada, would like to continue on mehtadone while hospitalized, is consdiering switching to suboxone at [facility] when he is discharged. had back pain Objective: 02/06/18 14:13 Vital Signs - 24 hr 02/05/18 02/05/18 02/05/18 14:46 19:00 21:00 Temperature 98.2 F 98.4 F Pulse Rate 100 H 53 L Respiratory 18 18 18 Rate Blood Pressure 124/59 109/53 O2 Sat by Pulse 100 Oximetry (%) 02/05/18 02/06/18 02/06/18 23:00 07:00 10:00 Temperature 99.0 F 99.0 F Pulse Rate 81 86 100 H Respiratory 18 18 18 Rate Blood Pressure 128/67 124/69 116/72 O2 Sat by Pulse Oximetry (%) 02/06/18 14:07 Temperature 98.7 F Pulse Rate 87 Respiratory 18 Rate Blood Pressure 102/53 O2 Sat by Pulse Oximetry (%) Laboratory Tests 01/29/18 01/29/18 01/29/18 23:50 23:50 23:50 WBC 15.7 H RBC 4.07 Hgb 12.1 Hct 36.7 MCV 90.2 MCH 29.8 MCHC 33.0 RDW 13.1 Plt Count 241 MPV 8.4 Neutrophils % 91.1 H Lymphocytes % 2.6 L Monocytes % 6.1 Eosinophils % 0.0 Basophils % 0.2 PT with INR 13.40 H INR 1.19 H Sodium 135 L Potassium 3.5 Chloride 97 L Carbon Dioxide 26 Anion Gap 12 BUN 10 Creatinine 0.9 Creat Clearance w eGFR > 60 Random Glucose 148 H Lactic Acid Calcium 8.3 L Phosphorus Magnesium 2.0 Total Bilirubin 1.1 H AST 33 ALT 21 Alkaline Phosphatase 78 Creatine Kinase 423 H Creatine Kinase Index 0.3 CK-MB (CK-2) 1.567 Troponin I 0.14 H Total Protein 7.3 Albumin 3.1 L Urine Color Urine Appearance Urine pH Ur Specific Monument Urine Protein Urine Glucose (UA) Urine Ketones Urine Blood Urine Nitrite Urine Bilirubin Urine Urobilinogen Ur Leukocyte Esterase Urine WBC (Auto) Urine RBC (Auto) Ur Epithelial Cells Urine Mucus Opiates Screen Methadone Screen Barbiturate Screen Phencyclidine Screen Ur Amphetamines Screen MDMA (Ecstasy) Screen Benzodiazepines Screen Cocaine Screen U Marijuana (THC) Screen TB Test (QFT) 01/30/18 01/30/18 01/30/18 02:09 02:09 02:09 WBC RBC Hgb Hct MCV MCH MCHC RDW Plt Count MPV Neutrophils % Lymphocytes % Monocytes % Eosinophils % Basophils % PT with INR INR Sodium Potassium Chloride Carbon Dioxide Anion Gap BUN Creatinine Creat Clearance w eGFR Random Glucose Lactic Acid 1.5 Calcium Phosphorus Magnesium Total Bilirubin AST ALT Alkaline Phosphatase Creatine Kinase Creatine Kinase Index CK-MB (CK-2) Troponin I Total Protein Albumin Urine Color Yellow Urine Appearance Slcloudy Urine pH 8.0 Ur Specific Mon[place] 1.013 Urine Protein 2+ H Urine Glucose (UA) 1+ H Urine Ketones Negative Urine Blood Negative Urine Nitrite Negative Urine Bilirubin Negative Urine Urobilinogen 2.0 Ur Leukocyte Esterase 2+ H Urine WBC (Auto) 85 Urine RBC (Auto) 27 Ur Epithelial Cells Rare Urine Mucus Rare Opiates Screen Negative Methadone Screen Negative Barbiturate Screen Negative Phencyclidine Screen Negative Ur Amphetamines Screen Negative MDMA (Ecstasy) Screen Negative Benzodiazepines Screen Negative Cocaine Screen Positive U Marijuana (THC) Screen Negative TB Test (QFT) 01/30/18 01/30/18 01/30/18 06:29 06:29 06:29 WBC 17.8 H RBC 4.12 Hgb 12.5 Hct 37.5 MCV 91.1 MCH 30.4 MCHC 33.3 RDW 13.1 Plt Count 227 MPV 9.2 Neutrophils % 89.0 H Lymphocytes % 4.6 L D Monocytes % 6.2 Eosinophils % 0.0 Basophils % 0.2 PT with INR INR Sodium 134 L Potassium 3.7 Chloride 97 L Carbon Dioxide 22 Anion Gap 15 BUN 9 Creatinine 0.8 Creat Clearance w eGFR Random Glucose 143 H Lactic Acid Calcium 8.2 L Phosphorus 3.0 Magnesium 1.8 Total Bilirubin AST ALT Alkaline Phosphatase Creatine Kinase Creatine Kinase Index CK-MB (CK-2) Troponin I 0.16 H Total Protein Albumin Urine Color Urine Appearance Urine pH Ur Specific Monument Urine Protein Urine Glucose (UA) Urine Ketones Urine Blood Urine Nitrite Urine Bilirubin Urine Urobilinogen Ur Leukocyte Esterase Urine WBC (Auto) Urine RBC (Auto) Ur Epithelial Cells Urine Mucus Opiates Screen Methadone Screen Barbiturate Screen Phencyclidine Screen Ur Amphetamines Screen MDMA (Ecstasy) Screen Benzodiazepines Screen Cocaine Screen U Marijuana (THC) Screen TB Test (QFT) 01/30/18 01/31/18 01/31/18 12:38 06:15 06:15 WBC 12.4 H D RBC 4.69 Hgb 13.9 D Hct 42.7 MCV 90.9 MCH 29.7 MCHC 32.6 RDW 12.6 Plt Count 260 MPV 9.0 Neutrophils % Lymphocytes % Monocytes % Eosinophils % Basophils % PT with INR INR Sodium 135 L Potassium 3.5 Chloride 99 Carbon Dioxide 26 Anion Gap 10 BUN 10 Creatinine 0.8 Creat Clearance w eGFR Random Glucose 122 H Lactic Acid Calcium 8.3 L Phosphorus Magnesium Total Bilirubin AST ALT Alkaline Phosphatase Creatine Kinase Creatine Kinase Index CK-MB (CK-2) Troponin I 0.10 H D Total Protein Albumin Urine Color Urine Appearance Urine pH Ur Specific Monument Urine Protein Urine Glucose (UA) Urine Ketones Urine Blood Urine Nitrite Urine Bilirubin Urine Urobilinogen Ur Leukocyte Esterase Urine WBC (Auto) Urine RBC (Auto) Ur Epithelial Cells Urine Mucus Opiates Screen Methadone Screen Barbiturate Screen Phencyclidine Screen Ur Amphetamines Screen MDMA (Ecstasy) Screen Benzodiazepines Screen Cocaine Screen U Marijuana (THC) Screen TB Test (QFT) 02/01/18 02/01/18 02/03/18 07:20 07:20 06:45 WBC 9.3 RBC 4.19 Hgb 12.5 D Hct 38.6 MCV 92.2 MCH 29.9 MCHC 32.5 RDW 12.9 Plt Count 237 MPV 8.9 Neutrophils % Lymphocytes % Monocytes % Eosinophils % Basophils % PT with INR INR Sodium 139 Potassium 3.6 Chloride 103 Carbon Dioxide 25 Anion Gap 11 BUN 11 Creatinine 0.8 Creat Clearance w eGFR Random Glucose 103 Lactic Acid Calcium 8.0 L Phosphorus Magnesium Total Bilirubin AST ALT Alkaline Phosphatase Creatine Kinase Creatine Kinase Index CK-MB (CK-2) Troponin I Total Protein Albumin Urine Color Urine Appearance Urine pH Ur Specific Monument Urine Protein Urine Glucose (UA) Urine Ketones Urine Blood Urine Nitrite Urine Bilirubin Urine Urobilinogen Ur Leukocyte Esterase Urine WBC (Auto) Urine RBC (Auto) Ur Epithelial Cells Urine Mucus Opiates Screen Methadone Screen Barbiturate Screen Phencyclidine Screen Ur Amphetamines Screen MDMA (Ecstasy) Screen Benzodiazepines Screen Cocaine Screen U Marijuana (THC) Screen TB Test (QFT) Negative 02/03/18 02/03/18 02/04/18 06:45 06:45 06:35 WBC 6.8 11.3 H D RBC 4.33 3.75 L Hgb 13.1 11.2 L D Hct 40.1 34.5 L MCV 92.8 92.1 MCH 30.3 29.9 MCHC 32.6 32.5 RDW 12.9 12.7 Plt Count 212 254 MPV 8.7 8.6 Neutrophils % 59.8 D Lymphocytes % 22.1 D Monocytes % 12.7 H D Eosinophils % 4.2 D Basophils % 1.2 D PT with INR INR Sodium 138 Potassium 4.4 D Chloride 104 Carbon Dioxide 31 D Anion Gap 3 L BUN 12 Creatinine 0.8 Creat Clearance w eGFR > 60 Random Glucose 86 Lactic Acid Calcium 8.3 L Phosphorus Magnesium Total Bilirubin 0.4 D AST 13 L D ALT 15 D Alkaline Phosphatase 70 Creatine Kinase Creatine Kinase Index CK-MB (CK-2) Troponin I Total Protein 6.0 L Albumin 2.4 L D Urine Color Urine Appearance Urine pH Ur Specific Monument Urine Protein Urine Glucose (UA) Urine Ketones Urine Blood Urine Nitrite Urine Bilirubin Urine Urobilinogen Ur Leukocyte Esterase Urine WBC (Auto) Urine RBC (Auto) Ur Epithelial Cells Urine Mucus Opiates Screen Methadone Screen Barbiturate Screen Phencyclidine Screen Ur Amphetamines Screen MDMA (Ecstasy) Screen Benzodiazepines Screen Cocaine Screen U Marijuana (THC) Screen TB Test (QFT) 02/04/18 02/05/18 02/05/18 06:35 07:20 07:20 WBC 11.6 H RBC 3.75 L Hgb 11.1 L Hct 35.1 L MCV 93.5 MCH 29.7 MCHC 31.7 L RDW 12.9 Plt Count 281 MPV 8.7 Neutrophils % Lymphocytes % Monocytes % Eosinophils % Basophils % PT with INR INR Sodium 137 141 Potassium 4.8 4.5 Chloride 100 101 Carbon Dioxide 30 32 Anion Gap 7 L 8 BUN 15 D 18 Creatinine 0.6 L D 0.7 Creat Clearance w eGFR Random Glucose 103 97 Lactic Acid Calcium 8.6 8.6 Phosphorus Magnesium Total Bilirubin AST ALT Alkaline Phosphatase Creatine Kinase Creatine Kinase Index CK-MB (CK-2) Troponin I Total Protein Albumin Urine Color Urine Appearance Urine pH Ur Specific Monument Urine Protein Urine Glucose (UA) Urine Ketones Urine Blood Urine Nitrite Urine Bilirubin Urine Urobilinogen Ur Leukocyte Esterase Urine WBC (Auto) Urine RBC (Auto) Ur Epithelial Cells Urine Mucus Opiates Screen Methadone Screen Barbiturate Screen Phencyclidine Screen Ur Amphetamines Screen MDMA (Ecstasy) Screen Benzodiazepines Screen Cocaine Screen U Marijuana (THC) Screen TB Test (QFT) mild anemia Assessment: 02/06/18 14:14 protrcted opioid [id number] sx, complete detox regimen with 5mg methadone daily. consider suboxone induction if he remins hosptialized for much longer prior to trasnfer to correction. idoderm patch for back pain xray neg
--- NOTE | 2018-02-06 08:57 | PN ---
Teaching Attending Note Name of Resident: Dann Rey ATTENDING PHYSICIAN STATEMENT I saw and evaluated the patient. I reviewed the resident's note and discussed the case with the resident. I agree with the resident's findings and plan as documented with exceptions mentioned below. SUBJECTIVE: Patient seen and examined. working with PT, no complaints currently, back pain earlier but no reports today. OBJECTIVE: Vital Signs Period Temp Pulse Resp BP Sys/Arambula Pulse Ox Last 24 Hr 97.8 F-99.0 F 53-100 18-19 98-128/40-69 100-100 Intake & Output 02/03/18 02/04/18 02/05/18 02/06/18 23:59 23:59 23:59 23:59 Intake Total 1020 1100 800 0 Output Total 400 1 200 Balance 620 1099 600 0 General: working with PT Musculoskeletal: no spinal or paraspinal tenderness elicited Home Medication List Medication Instructions Recorded Confirmed Type NK [No Known Home Medication] 01/29/18 01/29/18 History Active Medications Generic Name Dose Route Start Last Admin Trade Name Freq PRN Reason Stop Dose Admin Acetaminophen 500 mg 02/05/18 13:31 02/05/18 21:56 Tylenol - PO 500 mg Q4H PRN Administration PAIN LEVEL 1-5 Albuterol Sulfate 1 amp 01/30/18 03:17 Ventolin 0.083% Nebulizer Soln - NEB Q4H PRN SHORT OF BREATH/WHEEZING Albuterol Sulfate 2 puff 01/30/18 16:41 02/06/18 06:29 Ventolin Hfa Inhaler - IH 2 puff Q4H PRN Administration SHORT OF BREATH/WHEEZING Aspirin 81 mg 01/31/18 10:45 02/05/18 10:21 Asa - PO 81 mg DAILY JOSY Administration Atorvastatin Calcium 10 mg 02/03/18 22:00 02/05/18 21:51 Lipitor - PO 10 mg HS JOSY Administration Carvedilol 3.125 mg 02/04/18 11:00 02/05/18 21:51 Coreg - PO 3.125 mg BID JOSY Administration Enoxaparin Sodium 40 mg 02/06/18 10:00 Lovenox - SQ DAILY JOSY Lisinopril 10 mg 02/01/18 15:55 02/05/18 10:35 Prinivil PO Not Given DAILY JOSY Methadone HCl 15 mg 02/01/18 10:00 02/01/18 09:24 Dolophine - PO 02/01/18 23:59 15 mg ONCE ONE Administration Methadone HCl 15 mg 02/02/18 09:30 02/02/18 09:27 Dolophine - PO 02/02/18 23:59 15 mg ONCE ONE Administration Methadone HCl 5 mg 02/07/18 06:00 Dolophine - PO DAILY@0600 [facility] Ondansetron HCl 4 mg 01/30/18 16:16 Zofran Odt - SL Q6H PRN NAUSEA AND/OR VOMITING Pantoprazole Sodium 40 mg 02/04/18 10:00 02/05/18 10:21 Protonix - PO 40 mg DAILY JOSY Administration Prednisone 40 mg 02/03/18 10:00 02/05/18 10:21 Deltasone - PO 40 mg DAILY JOSY Administration Multivit/Folic Acid/Iron 1 tab 01/31/18 10:00 02/05/18 10:28 Vitamins (Sjr) - PO 1 tab DAILY [facility] Administration Thiamine HCl 100 mg 01/30/18 22:00 02/05/18 21:51 Vitamin B1 - PO 100 mg HS JOSY Administration Zolpidem Tartrate 10 mg 01/31/18 09:12 Ambien - PO HS PRN INSOMNIA Laboratory Results - last 24 hr 02/03/18 06:45 TB Test (QFT) Negative Microbiology 01/30/18 02:09 Urine - Urine Clean Catch Urine Culture - Final Contaminated: Please Repeat 01/30/18 02:09 Blood - Arterial Blood Culture - Final NO GROWTH AFTER 5 DAYS INCUBATION 01/30/18 02:09 Blood - Arterial Blood Culture - Final NO GROWTH AFTER 5 DAYS INCUBATION 01/31/18 10:15 Urine - Urine Clean Catch Urine Culture - Final NO GROWTH OBTAINED 01/30/18 22:00 Nasopharyngeal Swab Influenza Types A,B Antigen (NEGRO) - Final 01/30/18 22:00 Nasopharyngeal Swab - Final 01/30/18 22:21 Nasopharyngeal Swab Influenza Types A,B Antigen (NEGRO) - Final 01/30/18 22:21 Nasopharyngeal Swab - Final ASSESSMENT AND PLAN: 47yo M with PMH continuous polysubstance abuse(cocaine/heroin/ETOH) sent from [facility] due to unresponsiveness -Acute toxic metabolic encephalopathy, resolved -Lower uncomplicated UTI -Cardiomyopathy, suspect from polysubstance abuse, Stress results noted -Severe bullous emphysema with calcifed nodularity, suspected calcified pleural plaque with mild exacerbation -Prolonged QTc -Acute heroine/cocaine/ETOH withdrawal, s/p methadone/librium taper (finished ) -Hyponatremia, resolved Plan: Mental status at baseline, flu swab neg. s/p 5 days of ceftriaxone, urine cx neg, Off antiboitics. Stress test results noted. Medical management, continue ASA/statin/acei. Started on coreg, monitor for now. Avoid QTC prolonging meds. s/p methadone/librium taper. continue folate/thiamine/MVI. Outpatient follow up at detox center. No concerns for withdrawal, d/c methadone. LS xray neg for concerns, ambulating with no tenderness currently. Monitor. Pulmonary input apprciated. QFT neg. Hep/HIV, short burst prednisone x 5 days, d /c now, pre and post ambulatory oxygen saturations. Leucocytosis, suspect steroid induced,improved. Outpatient pulmonary follow up/ PET scan. DVTPPx with juvencio. Dispo PT eval noted, continue PT today, d/c tomorrow if no new events. Plan discussed with patient and all questions answered.
[2018-02-06] MEDS: ASPIRIN 81 MG CHEWABLE TABLETS PO SCH (10:31)
[2018-02-06] MEDS: CARVEDILOL 3.125 MG TABLET (FP) PO SCH ×2 (10:31→22:02)
[2018-02-06] MEDS: predniSONE 20 MG TABLET (UD) PO SCH (10:31)
[2018-02-06] MEDS: PANTOPRAZOLE 40 MG TABLET (FP) PO SCH (10:31)
[2018-02-06] MEDS: LISINOPRIL 10 MG TABLET (FP) PO SCH (10:31)
[2018-02-06] MEDS: ENOXAPARIN NA (PORCINE) 40 MG/0.4 ML DISP.SYRIN SQ SCH (10:31)
[2018-02-06] MEDS: METHADONE HCL 10 MG TABLET PO SCH (10:37)
[2018-02-06] MEDS ORDERED: METHADONE HCL 10 MG TABLET PO ONE (10:45)
[2018-02-06] MEDS: PRENATAL VITAMINS W/ FOLIC ACID TABLET (FP) PO SCH (11:00)
[2018-02-06] MEDS: ACETAMINOPHEN 500 MG TABLET (FP) PO PRN ×2 (11:00→22:12)
--- NOTE | 2018-02-06 12:23 | PN ---
Progress Note (short form) - Note Progress Note: Resting in NAD. Breathing feels ok. Back pain. Intake & Output 02/03/18 02/04/18 02/05/18 02/06/18 23:59 23:59 23:59 23:59 Intake Total 1020 1100 800 0 Output Total 400 1 200 100 Balance 620 1099 600 -100 Last Vital Signs Temp Pulse Resp BP Pulse Ox 99.0 F 86 18 124/69 100 02/06/18 07:00 02/06/18 07:00 02/06/18 07:00 02/06/18 07:00 02/05/18 21:00 Active Medications Acetaminophen (Tylenol -) 500 mg PO Q4H PRN PRN Reason: PAIN LEVEL 1-5 Last Admin: 02/06/18 11:00 Dose: 500 mg Albuterol Sulfate (Ventolin 0.083% Nebulizer Soln -) 1 amp NEB Q4H PRN PRN Reason: SHORT OF BREATH/WHEEZING Albuterol Sulfate (Ventolin Hfa Inhaler -) 2 puff IH Q4H PRN PRN Reason: SHORT OF BREATH/WHEEZING Last Admin: 02/06/18 06:29 Dose: 2 puff Aspirin (Asa -) 81 mg PO DAILY [facility] Last Admin: 02/06/18 10:31 Dose: 81 mg Atorvastatin Calcium (Lipitor -) 10 mg PO HS [facility] Last Admin: 02/05/18 21:51 Dose: 10 mg Carvedilol (Coreg -) 3.125 mg PO BID [facility] Last Admin: 02/06/18 10:31 Dose: 3.125 mg Enoxaparin Sodium (Lovenox -) 40 mg SQ DAILY [facility] Last Admin: 02/06/18 10:31 Dose: 40 mg Lisinopril (Prinivil) 10 mg PO DAILY [facility] Last Admin: 02/06/18 10:31 Dose: 10 mg Methadone HCl (Dolophine -) 15 mg PO ONCE ONE Stop: 02/01/18 23:59 Last Admin: 02/01/18 09:24 Dose: 15 mg Methadone HCl (Dolophine -) 15 mg PO ONCE ONE Stop: 02/02/18 23:59 Last Admin: 02/02/18 09:27 Dose: 15 mg Methadone HCl (Dolophine -) 5 mg PO DAILY@0600 [facility] Ondansetron HCl (Zofran Odt -) 4 mg SL Q6H PRN PRN Reason: NAUSEA AND/OR VOMITING Pantoprazole Sodium (Protonix -) 40 mg PO DAILY [facility] Last Admin: 02/06/18 10:31 Dose: 40 mg Prednisone (Deltasone -) 40 mg PO DAILY [facility] Last Admin: 02/06/18 10:31 Dose: 40 mg Multivit/Folic Acid/Iron ( Vitamins (Sjr) -) 1 tab PO DAILY [facility] Last Admin: 02/06/18 11:00 Dose: 1 tab Thiamine HCl (Vitamin B1 -) 100 mg PO HS [facility] Last Admin: 02/05/18 21:51 Dose: 100 mg Zolpidem Tartrate (Ambien -) 10 mg PO HS PRN PRN Reason: INSOMNIA Constitutional: Yes: NAD Eyes: Yes: WNL HENT: Yes: WNL Neck: Yes: WNL Cardiovascular: Yes: Regular Rate and Rhythm, S1, S2 Respiratory: Yes: Diminished at the bases, no wheeze Gastrointestinal: Yes: Normal Bowel Sounds, Soft Extremities: Yes: WNL Edema: No Labs: Laboratory Results - last 24 hr 02/03/18 06:45 TB Test (QFT) Negative Assessment/Plan Problem List - Problems (1) COPD (chronic obstructive pulmonary disease) with emphysema Code(s): J43.9 - EMPHYSEMA, UNSPECIFIED (2) Altered mental state Code(s): R41.82 - ALTERED MENTAL STATUS, UNSPECIFIED Qualifiers: Altered mental status type: somnolence Qualified Code(s): R40.0 - Somnolence (3) Cardiomyopathy Code(s): I42.9 - CARDIOMYOPATHY, UNSPECIFIED Qualifiers: Cardiomyopathy type: due to drug Qualified Code(s): I42.7 - Cardiomyopathy due to drug and external agent (4) Alcohol dependence with uncomplicated withdrawal Code(s): F10.230 - ALCOHOL DEPENDENCE WITH WITHDRAWAL, UNCOMPLICATED (5) Cannabis dependence Code(s): F12.20 - CANNABIS DEPENDENCE, UNCOMPLICATED (6) Cocaine dependence Code(s): F14.20 - COCAINE DEPENDENCE, UNCOMPLICATED Qualifiers: Substance use status: in withdrawal Qualified Code(s): F14.23 - Cocaine dependence with withdrawal (7) Insomnia secondary to depression with anxiety Code(s): F51.05 - INSOMNIA DUE TO OTHER MENTAL DISORDER; F41.8 - OTHER SPECIFIED ANXIETY DISORDERS Assessment/Plan SEVERE BULLOUS EMPHYSEMA/RIGHT UPPER LOBE SUBPLEURAL DENSITY SUBSTANCE ABUSE TOBACCO ABUSE HOMELESS PREDNISONE TAPER BRONCHODILATORS PRN PRE/POST AMB SPO2 PRIOR TO D/C WILL NEED FOLLOWUP IMAGING AFTER DISCHARGE DR SALINAS
[2018-02-06] MEDS ORDERED: METHADONE HCL 10 MG TABLET PO SCH (14:15)
--- NOTE | 2018-02-06 14:29 | PN ---
[facility] Progress Note (SOAP) Subjective: no complaints Objective: 02/06/18 14:27 Vital Signs - 24 hr 02/05/18 02/05/18 02/05/18 14:46 19:00 21:00 Temperature 98.2 F 98.4 F Pulse Rate 100 H 53 L Respiratory 18 18 18 Rate Blood Pressure 124/59 109/53 O2 Sat by Pulse 100 Oximetry (%) 02/05/18 02/06/18 02/06/18 23:00 07:00 10:00 Temperature 99.0 F 99.0 F Pulse Rate 81 86 100 H Respiratory 18 18 18 Rate Blood Pressure 128/67 124/69 116/72 O2 Sat by Pulse Oximetry (%) 02/06/18 14:07 Temperature 98.7 F Pulse Rate 87 Respiratory 18 Rate Blood Pressure 102/53 O2 Sat by Pulse Oximetry (%) Laboratory Tests 01/29/18 01/29/18 01/29/18 23:50 23:50 23:50 WBC 15.7 H RBC 4.07 Hgb 12.1 Hct 36.7 MCV 90.2 MCH 29.8 MCHC 33.0 RDW 13.1 Plt Count 241 MPV 8.4 Neutrophils % 91.1 H Lymphocytes % 2.6 L Monocytes % 6.1 Eosinophils % 0.0 Basophils % 0.2 PT with INR 13.40 H INR 1.19 H Sodium 135 L Potassium 3.5 Chloride 97 L Carbon Dioxide 26 Anion Gap 12 BUN 10 Creatinine 0.9 Creat Clearance w eGFR > 60 Random Glucose 148 H Lactic Acid Calcium 8.3 L Phosphorus Magnesium 2.0 Total Bilirubin 1.1 H AST 33 ALT 21 Alkaline Phosphatase 78 Creatine Kinase 423 H Creatine Kinase Index 0.3 CK-MB (CK-2) 1.567 Troponin I 0.14 H Total Protein 7.3 Albumin 3.1 L Urine Color Urine Appearance Urine pH Ur Specific [place] Urine Protein Urine Glucose (UA) Urine Ketones Urine Blood Urine Nitrite Urine Bilirubin Urine Urobilinogen Ur Leukocyte Esterase Urine WBC (Auto) Urine RBC (Auto) Ur Epithelial Cells Urine Mucus Opiates Screen Methadone Screen Barbiturate Screen Phencyclidine Screen Ur Amphetamines Screen MDMA (Ecstasy) Screen Benzodiazepines Screen Cocaine Screen U Marijuana (THC) Screen TB Test (QFT) 01/30/18 01/30/18 01/30/18 02:09 02:09 02:09 WBC RBC Hgb Hct MCV MCH MCHC RDW Plt Count MPV Neutrophils % Lymphocytes % Monocytes % Eosinophils % Basophils % PT with INR INR Sodium Potassium Chloride Carbon Dioxide Anion Gap BUN Creatinine Creat Clearance w eGFR Random Glucose Lactic Acid 1.5 Calcium Phosphorus Magnesium Total Bilirubin AST ALT Alkaline Phosphatase Creatine Kinase Creatine Kinase Index CK-MB (CK-2) Troponin I Total Protein Albumin Urine Color Yellow Urine Appearance Slcloudy Urine pH 8.0 Ur Specific [place] 1.013 Urine Protein 2+ H Urine Glucose (UA) 1+ H Urine Ketones Negative Urine Blood Negative Urine Nitrite Negative Urine Bilirubin Negative Urine Urobilinogen 2.0 Ur Leukocyte Esterase 2+ H Urine WBC (Auto) 85 Urine RBC (Auto) 27 Ur Epithelial Cells Rare Urine Mucus Rare Opiates Screen Negative Methadone Screen Negative Barbiturate Screen Negative Phencyclidine Screen Negative Ur Amphetamines Screen Negative MDMA (Ecstasy) Screen Negative Benzodiazepines Screen Negative Cocaine Screen Positive U Marijuana (THC) Screen Negative TB Test (QFT) 01/30/18 01/30/18 01/30/18 06:29 06:29 06:29 WBC 17.8 H RBC 4.12 Hgb 12.5 Hct 37.5 MCV 91.1 MCH 30.4 MCHC 33.3 RDW 13.1 Plt Count 227 MPV 9.2 Neutrophils % 89.0 H Lymphocytes % 4.6 L D Monocytes % 6.2 Eosinophils % 0.0 Basophils % 0.2 PT with INR INR Sodium 134 L Potassium 3.7 Chloride 97 L Carbon Dioxide 22 Anion Gap 15 BUN 9 Creatinine 0.8 Creat Clearance w eGFR Random Glucose 143 H Lactic Acid Calcium 8.2 L Phosphorus 3.0 Magnesium 1.8 Total Bilirubin AST ALT Alkaline Phosphatase Creatine Kinase Creatine Kinase Index CK-MB (CK-2) Troponin I 0.16 H Total Protein Albumin Urine Color Urine Appearance Urine pH Ur Specific [place] Urine Protein Urine Glucose (UA) Urine Ketones Urine Blood Urine Nitrite Urine Bilirubin Urine Urobilinogen Ur Leukocyte Esterase Urine WBC (Auto) Urine RBC (Auto) Ur Epithelial Cells Urine Mucus Opiates Screen Methadone Screen Barbiturate Screen Phencyclidine Screen Ur Amphetamines Screen MDMA (Ecstasy) Screen Benzodiazepines Screen Cocaine Screen U Marijuana (THC) Screen TB Test (QFT) 01/30/18 01/31/18 01/31/18 12:38 06:15 06:15 WBC 12.4 H D RBC 4.69 Hgb 13.9 D Hct 42.7 MCV 90.9 MCH 29.7 MCHC 32.6 RDW 12.6 Plt Count 260 MPV 9.0 Neutrophils % Lymphocytes % Monocytes % Eosinophils % Basophils % PT with INR INR Sodium 135 L Potassium 3.5 Chloride 99 Carbon Dioxide 26 Anion Gap 10 BUN 10 Creatinine 0.8 Creat Clearance w eGFR Random Glucose 122 H Lactic Acid Calcium 8.3 L Phosphorus Magnesium Total Bilirubin AST ALT Alkaline Phosphatase Creatine Kinase Creatine Kinase Index CK-MB (CK-2) Troponin I 0.10 H D Total Protein Albumin Urine Color Urine Appearance Urine pH Ur Specific [place] Urine Protein Urine Glucose (UA) Urine Ketones Urine Blood Urine Nitrite Urine Bilirubin Urine Urobilinogen Ur Leukocyte Esterase Urine WBC (Auto) Urine RBC (Auto) Ur Epithelial Cells Urine Mucus Opiates Screen Methadone Screen Barbiturate Screen Phencyclidine Screen Ur Amphetamines Screen MDMA (Ecstasy) Screen Benzodiazepines Screen Cocaine Screen U Marijuana (THC) Screen TB Test (QFT) 02/01/18 02/01/18 02/03/18 07:20 07:20 06:45 WBC 9.3 RBC 4.19 Hgb 12.5 D Hct 38.6 MCV 92.2 MCH 29.9 MCHC 32.5 RDW 12.9 Plt Count 237 MPV 8.9 Neutrophils % Lymphocytes % Monocytes % Eosinophils % Basophils % PT with INR INR Sodium 139 Potassium 3.6 Chloride 103 Carbon Dioxide 25 Anion Gap 11 BUN 11 Creatinine 0.8 Creat Clearance w eGFR Random Glucose 103 Lactic Acid Calcium 8.0 L Phosphorus Magnesium Total Bilirubin AST ALT Alkaline Phosphatase Creatine Kinase Creatine Kinase Index CK-MB (CK-2) Troponin I Total Protein Albumin Urine Color Urine Appearance Urine pH Ur Specific [place] Urine Protein Urine Glucose (UA) Urine Ketones Urine Blood Urine Nitrite Urine Bilirubin Urine Urobilinogen Ur Leukocyte Esterase Urine WBC (Auto) Urine RBC (Auto) Ur Epithelial Cells Urine Mucus Opiates Screen Methadone Screen Barbiturate Screen Phencyclidine Screen Ur Amphetamines Screen MDMA (Ecstasy) Screen Benzodiazepines Screen Cocaine Screen U Marijuana (THC) Screen TB Test (QFT) Negative 02/03/18 02/03/18 02/04/18 06:45 06:45 06:35 WBC 6.8 11.3 H D RBC 4.33 3.75 L Hgb 13.1 11.2 L D Hct 40.1 34.5 L MCV 92.8 92.1 MCH 30.3 29.9 MCHC 32.6 32.5 RDW 12.9 12.7 Plt Count 212 254 MPV 8.7 8.6 Neutrophils % 59.8 D Lymphocytes % 22.1 D Monocytes % 12.7 H D Eosinophils % 4.2 D Basophils % 1.2 D PT with INR INR Sodium 138 Potassium 4.4 D Chloride 104 Carbon Dioxide 31 D Anion Gap 3 L BUN 12 Creatinine 0.8 Creat Clearance w eGFR > 60 Random Glucose 86 Lactic Acid Calcium 8.3 L Phosphorus Magnesium Total Bilirubin 0.4 D AST 13 L D ALT 15 D Alkaline Phosphatase 70 Creatine Kinase Creatine Kinase Index CK-MB (CK-2) Troponin I Total Protein 6.0 L Albumin 2.4 L D Urine Color Urine Appearance Urine pH Ur Specific [place] Urine Protein Urine Glucose (UA) Urine Ketones Urine Blood Urine Nitrite Urine Bilirubin Urine Urobilinogen Ur Leukocyte Esterase Urine WBC (Auto) Urine RBC (Auto) Ur Epithelial Cells Urine Mucus Opiates Screen Methadone Screen Barbiturate Screen Phencyclidine Screen Ur Amphetamines Screen MDMA (Ecstasy) Screen Benzodiazepines Screen Cocaine Screen U Marijuana (THC) Screen TB Test (QFT) 02/04/18 02/05/18 02/05/18 06:35 07:20 07:20 WBC 11.6 H RBC 3.75 L Hgb 11.1 L Hct 35.1 L MCV 93.5 MCH 29.7 MCHC 31.7 L RDW 12.9 Plt Count 281 MPV 8.7 Neutrophils % Lymphocytes % Monocytes % Eosinophils % Basophils % PT with INR INR Sodium 137 141 Potassium 4.8 4.5 Chloride 100 101 Carbon Dioxide 30 32 Anion Gap 7 L 8 BUN 15 D 18 Creatinine 0.6 L D 0.7 Creat Clearance w eGFR Random Glucose 103 97 Lactic Acid Calcium 8.6 8.6 Phosphorus Magnesium Total Bilirubin AST ALT Alkaline Phosphatase Creatine Kinase Creatine Kinase Index CK-MB (CK-2) Troponin I Total Protein Albumin Urine Color Urine Appearance Urine pH Ur Specific [place] Urine Protein Urine Glucose (UA) Urine Ketones Urine Blood Urine Nitrite Urine Bilirubin Urine Urobilinogen Ur Leukocyte Esterase Urine WBC (Auto) Urine RBC (Auto) Ur Epithelial Cells Urine Mucus Opiates Screen Methadone Screen Barbiturate Screen Phencyclidine Screen Ur Amphetamines Screen MDMA (Ecstasy) Screen Benzodiazepines Screen Cocaine Screen U Marijuana (THC) Screen TB Test (QFT) Assessment: 02/06/18 14:28 cont methadone 5mg until patient is discharged, inducting onto suboxone while hospitalized may complicate [facility]. he can start MAT at [facility]. he will nto need methadone 5mg when he [facility] the [facility]iary.
[2018-02-06] MEDS: LIDOCAINE 5% TOPICAL PATCH TP SCH (15:01)
[2018-02-06] MEDS ORDERED: LIDOCAINE PATCH REMOVAL MC SCH (22:00)
[2018-02-06] MEDS: ATORVASTATIN CA 10 MG TABLET (FP) PO SCH (22:02)
[2018-02-06] MEDS: THIAMINE HCL 100 MG TABLET (FP) PO SCH (22:05)
[2018-02-07] MEDS ORDERED: METHADONE HCL 5 MG TABLET PO SCH (06:00)
--- NOTE | 2018-02-07 06:28 | PN ---
Physical Exam: SUBJECTIVE: Patient seen and examined OBJECTIVE: Vital Signs Period Temp Pulse Resp BP Sys/Arambula Pulse Ox Last 24 Hr 98.2 F-99.7 F 76-109 18-18 102-124/53-86 97-98 GENERAL: Middle aged man, A&&Ox3, NAD HEAD: Normal with no signs of trauma. EYES: Extraocular movements intact, sclera anicteric, conjunctiva clear. No ptosis. ENT: Poor dentition. Ears normal, nares patent, oropharynx clear without exudates, moist mucous membranes. NECK: Trachea midline, full range of motion, supple. LUNGS: Diffuse rhonchi in all lung millan, trace expiratory wheezing L>R HEART: RRR, S1, S2 without murmur, rub or gallop. ABDOMEN: Soft, ND, NT, normoactive bowel sounds. Pain in lower back on palpation , focal swelling in midline at iliac crest, no gross deformities noted. EXTREMITIES: Still w/ BL stasis dematitis, 2+ pulses, warm, well-perfused, no edema. NEUROLOGICAL: Cranial nerves II through XII grossly intact. Normal speech, gait not observed. PSYCH: Pleasant, denies hallucinations SKIN: Warm, dry, normal turgor Active Medications Generic Name Dose Route Start Last Admin Trade Name Freq PRN Reason Stop Dose Admin Acetaminophen 500 mg 02/05/18 13:31 02/06/18 22:12 Tylenol - PO 500 mg Q4H PRN Administration PAIN LEVEL 1-5 Albuterol Sulfate 1 amp 01/30/18 03:17 Ventolin 0.083% Nebulizer Soln - NEB Q4H PRN SHORT OF BREATH/WHEEZING Albuterol Sulfate 2 puff 01/30/18 16:41 02/06/18 06:29 Ventolin Hfa Inhaler - IH 2 puff Q4H PRN Administration SHORT OF BREATH/WHEEZING Aspirin 81 mg 01/31/18 10:45 02/06/18 10:31 Asa - PO 81 mg DAILY JOSY Administration Atorvastatin Calcium 10 mg 02/03/18 22:00 02/06/18 22:02 Lipitor - PO 10 mg HS JOSY Administration Carvedilol 3.125 mg 02/04/18 11:00 02/06/18 22:02 Coreg - PO 3.125 mg BID JOSY Administration Enoxaparin Sodium 40 mg 02/06/18 10:00 02/06/18 10:31 Lovenox - SQ 40 mg DAILY JOSY Administration Lidocaine 1 patch 02/06/18 14:15 02/06/18 15:01 Lidoderm Patch - TP 1 patch DAILY JOSY Administration Lisinopril 10 mg 02/01/18 15:55 02/06/18 10:31 Prinivil PO 10 mg DAILY JOSY Administration Methadone HCl 15 mg 02/01/18 10:00 02/01/18 09:24 Dolophine - PO 02/01/18 23:59 15 mg ONCE ONE Administration Methadone HCl 15 mg 02/02/18 09:30 02/02/18 09:27 Dolophine - PO 02/02/18 23:59 15 mg ONCE ONE Administration Miscellaneous 1 each 02/06/18 22:00 02/06/18 22:02 Lidoderm Patch Removal MC 1 each DAILY@2200 JOSY Administration Ondansetron HCl 4 mg 01/30/18 16:16 Zofran Odt - SL Q6H PRN NAUSEA AND/OR VOMITING Pantoprazole Sodium 40 mg 02/04/18 10:00 02/06/18 10:31 Protonix - PO 40 mg DAILY JOSY Administration Multivit/Folic Acid/Iron 1 tab 01/31/18 10:00 02/06/18 11:00 Vitamins (Sjr) - PO 1 tab DAILY JOSY Administration Thiamine HCl 100 mg 01/30/18 22:00 02/06/18 22:05 Vitamin B1 - PO 100 mg HS JOSY Administration Zolpidem Tartrate 10 mg 01/31/18 09:12 Ambien - PO HS PRN INSOMNIA Microbiology 01/30/18 02:09 Urine - Urine Clean Catch Urine Culture - Final Contaminated: Please Repeat 01/30/18 02:09 Blood - Arterial Blood Culture - Final NO GROWTH AFTER 5 DAYS INCUBATION 01/30/18 02:09 Blood - Arterial Blood Culture - Final NO GROWTH AFTER 5 DAYS INCUBATION 01/31/18 10:15 Urine - Urine Clean Catch Urine Culture - Final NO GROWTH OBTAINED 01/30/18 22:00 Nasopharyngeal Swab Influenza Types A,B Antigen (NEGRO) - Final 01/30/18 22:00 Nasopharyngeal Swab - Final 01/30/18 22:21 Nasopharyngeal Swab Influenza Types A,B Antigen (NEGRO) - Final 01/30/18 22:21 Nasopharyngeal Swab - Final CXR 01/30: bullous findings with coarse changes. ill defined density by anterior aspect of third rib Carotid doppler 01/30 - Distal thickening of left/right carotid artery. Poor exam. EKG 01/29 : normal sinus with PAC's, t wave inversions v4-v6, QT prolongation Qtc >500ms EKG 01/30 - Rate 76, NAD, QTC 499, ST elevation in v3, twI in v4/v5 ECHO 01/30 - EF 38%, moderately reduced LV function, global hypokinesis of LV; normal RV size and function; trace MR/TR CT chest 02/01 - Impression: Severe bullous emphysematous changes Partially calcified nodularity adjacent to the right third rib probably pleural-based probably a chronic type partially calcified pleural plaque Left lower lobe consolidation with air bronchograms suspicious for inflammation or infection Cardiac nuclear stress test 02/03 - negative. Global hypokinesia, LV dilatation, EF of 37% Lumbar spine XR 02/06 - No gross fractures noted. Mild dextrocurvature ASSESSMENT/PLAN: 47 y/o homeless man with PMH of heroin, alcohol, cocaine, marijuana dependence, asthma, anxiety, depression, and insomnia, brought in from [facility] d/t [facility]. Pt rejected from all rehab centers. Plan for d/c home tomorrow after optimization with PT. #Cardiomyopathy -troponins with no significant increase from 0.14->0.16 -> 0.10 ; EKG unremarkable - cardiac monitoring - Echo w/ global hypokinesis of LV - Stress test negative with evidence of global hypokinesia. No further work-up required as inpt - c/w lisinopril, lipitor and asa - Coreg BID #Alcohol/heroin/cocaine withdrawal - on methadone, librium taper - continued on low dose methadone course per Dr. Mcintosh due to protracted withdrawal - Detox team consulted, recs appreciated - finished librium protocol - Thiamine 100mg PO qd, Folic acid 1mg PO qd - ambien for insomnia - Walked 65 ft w/ PT today, unsteady gait; notably diaphoretic after ambulation #back pain - inconsistent presentation of pain; no gross evidence of trauma on exam - lumbar/sacral XR - Tylenol for pain control; high threshold for additional pain medication given hx of drug abuse #UTI/leukocytosis - UA 01/30 2+ leuk esterase, 85 WBCs; Borderline WBC elevated 11.6 today -rocephin d/c'ed yesterday -Urine cx negative -flu swab negative - consider repeat UA in AM #Back pain - Pain control with tylenol - If persistent pain, consider imaging to assess for any occult fx however likely soft tissue injury #Qt prolongation - qtc 457 on repeat ekg -Avoid QT prolonging agents - serial ekgs #Abnormal CXR - bullous dz, suspicious density - CT chest with calcified density, bullous dz - pulm consulted - will require outpt f/u - consider possible bx - PET scan as outpt #Asthma -Albuterol q4h PRN for SOB/wheezing - pre/post - 5 day burst steroid PO prednisone course. Day 4 - avoid oversedation #BL stasis dermatitis -wound care as outpt #F/E/N PO hydration daily bmps Regular diet #PPX Lovenox #Dispo- D/c home tomorrow AM after additional PT optimization Plan discussed with attending, Dr. Sravanthi Rey, PGY1
[2018-02-07 07:44] VITALS: TEMP 97.6
[2018-02-07] MEDS ORDERED: PT OWN MED DRAWER 7, Y5N ONE (09:29)
[2018-02-07] MEDS: LIDOCAINE 5% TOPICAL PATCH TP SCH (10:00)
[2018-02-07] MEDS: ENOXAPARIN NA (PORCINE) 40 MG/0.4 ML DISP.SYRIN SQ SCH (10:00)
[2018-02-07] MEDS: CARVEDILOL 3.125 MG TABLET (FP) PO SCH (10:02)
[2018-02-07] MEDS: LISINOPRIL 10 MG TABLET (FP) PO SCH (10:02)
[2018-02-07] MEDS: PRENATAL VITAMINS W/ FOLIC ACID TABLET (FP) PO SCH (10:02)
[2018-02-07] MEDS: ASPIRIN 81 MG CHEWABLE TABLETS PO SCH (10:03)
[2018-02-07] MEDS: ACETAMINOPHEN 500 MG TABLET (FP) PO PRN (10:03)
[2018-02-07] MEDS: PANTOPRAZOLE 40 MG TABLET (FP) PO SCH (10:03)
[2018-02-07] MEDS ORDERED: BUPRENORPHINE/NALOXONE 2 MG/0.5 MG FILM PACKET SL ONE (12:25)
--- NOTE | 2018-02-07 12:33 | PN ---
S Progress Note (SOAP) Subjective: patient had last dose of methadone for detox yesterdday, wants to BE ON SUBOXONE FOR mat Objective: 02/07/18 12:30 Vital Signs - 24 hr 02/06/18 02/06/18 02/06/18 14:07 18:30 18:35 Temperature 98.7 F 98.2 F Pulse Rate 87 92 H 109 H Respiratory 18 18 Rate Blood Pressure 102/53 111/86 O2 Sat by Pulse 97 Oximetry (%) 02/06/18 02/06/18 02/07/18 21:00 22:00 07:41 Temperature 99.7 F H 97.6 F Pulse Rate 76 84 Respiratory 18 18 17 Rate Blood Pressure 108/65 112/63 O2 Sat by Pulse 97 Oximetry (%) Laboratory Last Values WBC 11.6 K/mm3 (4.0-10.0) H 02/05/18 07:20 RBC 3.75 M/mm3 (4.00-5.60) L 02/05/18 07:20 Hgb 11.1 GM/dL (11.7-16.9) L 02/05/18 07:20 Hct 35.1 % (35.4-49) L 02/05/18 07:20 MCV 93.5 fl (80-96) 02/05/18 07:20 MCH 29.7 pg (25.7-33.7) 02/05/18 07:20 MCHC 31.7 g/dl (32.0-35.9) L 02/05/18 07:20 RDW 12.9 % (11.9-15.9) 02/05/18 07:20 Plt Count 281 K/MM3 (134-434) 02/05/18 07:20 MPV 8.7 fl (7.5-11.1) 02/05/18 07:20 Neutrophils % 59.8 % (42.8-82.8) D 02/03/18 06:45 Lymphocytes % 22.1 % (8-40) D 02/03/18 06:45 Monocytes % 12.7 % (3.8-10.2) H D 02/03/18 06:45 Eosinophils % 4.2 % (0-4.5) D 02/03/18 06:45 Basophils % 1.2 % (0-2.0) D 02/03/18 06:45 PT with INR 13.40 SEC (9.98-11.88) H 01/29/18 23:50 INR 1.19 (0.82-1.09) H 01/29/18 23:50 Sodium 141 mmol/L (136-145) 02/05/18 07:20 Potassium 4.5 mmol/L (3.5-5.1) 02/05/18 07:20 Chloride 101 mmol/L (98-107) 02/05/18 07:20 Carbon Dioxide 32 mmol/L (21-32) 02/05/18 07:20 Anion Gap 8 (8-16) 02/05/18 07:20 BUN 18 mg/dL (7-18) 02/05/18 07:20 Creatinine 0.7 mg/dL (0.7-1.3) 02/05/18 07:20 Creat Clearance w eGFR > 60 (>60) 02/03/18 06:45 Random Glucose 97 mg/dL (74-106) 02/05/18 07:20 Lactic Acid 1.5 mmol/L (0.0-2.0) 01/30/18 02:09 Calcium 8.6 mg/dL (8.5-10.1) 02/05/18 07:20 Phosphorus 3.0 mg/dL (2.5-4.9) 01/30/18 06:29 Magnesium 1.8 mg/dL (1.8-2.4) 01/30/18 06:29 Total Bilirubin 0.4 mg/dL (0.2-1.0) D 02/03/18 06:45 AST 13 U/L (15-37) L D 02/03/18 06:45 ALT 15 U/L (12-78) D 02/03/18 06:45 Alkaline Phosphatase 70 U/L (45-117) 02/03/18 06:45 Creatine Kinase 423 IU/L (39-308) H 01/29/18 23:50 Creatine Kinase Index 0.3 % (0.0-5.0) 01/29/18 23:50 CK-MB (CK-2) 1.567 ng/mL (0.5-3.6) 01/29/18 23:50 Troponin I 0.10 ng/ml (0.00-0.05) H D 01/30/18 12:38 Total Protein 6.0 g/dl (6.4-8.2) L 02/03/18 06:45 Albumin 2.4 g/dl (3.4-5.0) L D 02/03/18 06:45 Urine Color Yellow 01/30/18 02:09 Urine Appearance Slcloudy 01/30/18 02:09 Urine pH 8.0 (5.0-8.0) 01/30/18 02:09 Ur Specific [place] 1.013 (1.001-1.035) 01/30/18 02:09 Urine Protein 2+ (NEGATIVE) H 01/30/18 02:09 Urine Glucose (UA) 1+ (NEGATIVE) H 01/30/18 02:09 Urine Ketones Negative (NEGATIVE) 01/30/18 02:09 Urine Blood Negative (NEGATIVE) 01/30/18 02:09 Urine Nitrite Negative (NEGATIVE) 01/30/18 02:09 Urine Bilirubin Negative (NEGATIVE) 01/30/18 02:09 Urine Urobilinogen 2.0 mg/dL (0.2-1.0) 01/30/18 02:09 Ur Leukocyte Esterase 2+ (NEGATIVE) H 01/30/18 02:09 Urine WBC (Auto) 85 /hpf (3-5) 01/30/18 02:09 Urine RBC (Auto) 27 /hpf (0-3) 01/30/18 02:09 Ur Epithelial Cells Rare /HPF (FEW) 01/30/18 02:09 Urine Mucus Rare 01/30/18 02:09 Opiates Screen Negative ng/ml (NVDGJF=858) 01/30/18 02:09 Methadone Screen Negative ng/ml (AUGJQL=701) 01/30/18 02:09 Barbiturate Screen Negative ng/ml (UBNDWG=956) 01/30/18 02:09 Phencyclidine Screen Negative ng/ml (CUTOFF=25) 01/30/18 02:09 Ur Amphetamines Screen Negative ng/ml (PDUPJN=707) 01/30/18 02:09 MDMA (Ecstasy) Screen Negative ng/ml (TFHBDY=769) 01/30/18 02:09 Benzodiazepines Screen Negative ng/ml (JCCNXM=886) 01/30/18 02:09 Cocaine Screen Positive ng/ml (BIMTAC=053) 01/30/18 02:09 U Marijuana (THC) Screen Negative ng/ml (CUTOFF=50) 01/30/18 02:09 TB Test (QFT) Negative (Negative) 02/03/18 06:45 Assessment: 02/07/18 12:30 OPIOID USE DISORDER, SEVERE COCAINE DEPEDNENCE patient was detoxed during admission with methadone, would like to restart MAT with suboxone. give 4mg x1 dose now, start 8mg daily while hospitalized. prescription sent to [facility] x1 month until he returns to [facility] for aftercare. James can pickup his prescription at [place] when he returns to [place] his personal belongings. discussed with medical team , social work aware. patient is not strong enough at this time to participate in drug rehab at [facility]. A and ax3 w decisional capacity to sign out however.
[2018-02-07 13:28] VITALS: BP 104/60; PULSE 80
--- NOTE | 2018-02-07 14:47 | PN ---
Teaching Attending Note Name of Resident: Dann Rey ATTENDING PHYSICIAN STATEMENT I saw and evaluated the patient. I reviewed the resident's note and discussed the case with the resident. I agree with the resident's findings and plan as documented with exceptions mentioned below. SUBJECTIVE: Patient seen and examined. asking for suboxone, no complaints otherwise. OBJECTIVE: Vital Signs Period Temp Pulse Resp BP Sys/Arambula Pulse Ox Last 24 Hr 97.6 F-99.7 F 76-109 17-18 104-112/60-86 97-98 Intake & Output 02/04/18 02/05/18 02/06/18 02/07/18 23:59 23:59 23:59 23:59 Intake Total 1100 800 840 440 Output Total 1 200 100 400 Balance 1099 600 740 40 General: lying in bed in no acute distress ASSESSMENT AND PLAN: 47yo M with PMH continuous polysubstance abuse(cocaine/heroin/ETOH) sent from [facility] due to unresponsiveness -Acute toxic metabolic encephalopathy, resolved -Lower uncomplicated UTI -Cardiomyopathy, suspect from polysubstance abuse, Stress results noted -Severe bullous emphysema with calcifed nodularity, suspected calcified pleural plaque with mild exacerbation -Prolonged QTc -Acute heroine/cocaine/ETOH withdrawal, s/p methadone/librium taper (finished ) -Hyponatremia, resolved Plan: no new events. PT eval recommending walker, needing assist. Not accepted to SNF so far. Patient requesting to leave. Risks of leaving explained in detail and patient relayed understanding. Seen by Dr. Reyes prior to dc, to be placed on suboxone detox. Stressed the need for cardiology/pulmonary follow up, compliance with medications, avoiding drug ingestion with current cardiac meds. Patient high risk of progression of cardiac disease and sudden cardiac in absence of drug cessation and close follow up. Patient to leave AMA, prescriptions and instructions provided.
--- NOTE | 2018-02-07 21:26 | DS ---
Physical Exam: SUBJECTIVE: Patient seen and examined by me this AM - No overnight events. Afebrile, VSS. Denies f/c/n/v/d, MONTES, dizziness, CP, ab pain, dysuria, peripheral numbness/weakness, SOB. Pt informed he was rejected from all rehab programs, medical team attempting to seek alternate accommodations. Pt insistent that he leave with Suboxone rx, informed that the primary medical team will not be able to provide this for him and that he will need to follow-up with his outpt detox program. Pt with decision to leave AMA, stating he no longer wants to wait for placement or alternate discharge plans. Pt is A&Ox3, has full competency to make his own medical decisions. Counseled on risk of AMA without additional physical therapy and discharge plan. Acknowleged he understood risks and still wished to leave AMA. Provided rx's for cardiac meds and rolling walker. Pt seen by Detox team, provided suboxone rx until he can see his outpt detox doctor. OBJECTIVE: Vital Signs Intake & Output 02/04/18 02/05/18 02/06/18 02/07/18 23:59 23:59 23:59 23:59 Intake Total 1100 800 840 440 Output Total 1 200 100 400 Balance 1099 600 740 40 Period Temp Pulse Resp BP Sys/Arambula Pulse Ox Last 24 Hr 97.6 F-99.7 F 76-84 17-18 104-112/60-65 98 PHYSICAL EXAM GENERAL: Middle aged man, A&&Ox3, NAD HEAD: Normal with no signs of trauma. EYES: Extraocular movements intact, sclera anicteric, conjunctiva clear. No ptosis. ENT: Poor dentition. Ears normal, nares patent, oropharynx clear without exudates, moist mucous membranes. NECK: Trachea midline, full range of motion, supple. LUNGS: Diffuse rhonchi in all lung millan, trace expiratory wheezing L>R HEART: RRR, S1, S2 without murmur, rub or gallop. ABDOMEN: Soft, ND, NT, normoactive bowel sounds. No CVA tenderness or pain on palpation. EXTREMITIES: Still w/ BL stasis dematitis, 2+ pulses, warm, well-perfused, no edema. NEUROLOGICAL: Cranial nerves II through XII grossly intact. Normal speech, gait not observed. PSYCH: Pleasant, denies hallucinations SKIN: Warm, dry, normal turgor LABS CBC, BMP 02/05/18 07:20 02/05/18 07:20 Microbiology 01/30/18 02:09 Urine - Urine Clean Catch Urine Culture - Final Contaminated: Please Repeat 01/30/18 02:09 Blood - Arterial Blood Culture - Final NO GROWTH AFTER 5 DAYS INCUBATION 01/30/18 02:09 Blood - Arterial Blood Culture - Final NO GROWTH AFTER 5 DAYS INCUBATION 01/31/18 10:15 Urine - Urine Clean Catch Urine Culture - Final NO GROWTH OBTAINED 01/30/18 22:00 Nasopharyngeal Swab Influenza Types A,B Antigen (NEGRO) - Final 01/30/18 22:00 Nasopharyngeal Swab - Final 01/30/18 22:21 Nasopharyngeal Swab Influenza Types A,B Antigen (NEGRO) - Final 01/30/18 22:21 Nasopharyngeal Swab - Final CXR 01/30: bullous findings with coarse changes. ill defined density by anterior aspect of third rib Carotid doppler 01/30 - Distal thickening of left/right carotid artery. Poor exam. EKG 01/29 : normal sinus with PAC's, t wave inversions v4-v6, QT prolongation Qtc >500ms EKG 01/30 - Rate 76, NAD, QTC 499, ST elevation in v3, twI in v4/v5 ECHO 01/30 - EF 38%, moderately reduced LV function, global hypokinesis of LV; normal RV size and function; trace MR/TR CT chest 02/01 - Impression: Severe bullous emphysematous changes Partially calcified nodularity adjacent to the right third rib probably pleural-based probably a chronic type partially calcified pleural plaque Left lower lobe consolidation with air bronchograms suspicious for inflammation or infection Cardiac nuclear stress test 02/03 - negative. Global hypokinesia, LV dilatation, EF of 37% Lumbar spine XR 02/06 - No gross fractures noted. Mild dextrocurvature Consults: Detox - Seen by Dr. Mcintosh Pulmonology - Seen by Dr. Velazquez Cardiology - Seen by Dr. Dawson [facility] COURSE: Prehospital course: 47 y/o homeless M with PMH heroin, alcohol, cocaine, marijuana dependence, asthma, anxiety, depression, and insomnia, brought in from [facility] d/t AMS. As per [facility], patient was there for detox from cocaine, heroin and alcohol, and was admitted yesterday. Pt states that this was part of "[facility] [employer] While there this evening, he was found to be "unresponsive" with a thready pulse , so chest compressions were initiated. As per staff, two compressions were completed when patient had become responsive. However, as per pt, no compressions were done and he was "just sleeping." He states that he was told he needed to go seek treatment at [facility], or he would risk being removed from the detox program. At this time, pt endorses myalgias, fatigue, subjective chills, tremors, and nausea without emesis. Denies MONTES, fever, SOB, chest pain or pressure, or changes in urinary or bowel function. Pt is currently homeless and has lived on the streets for a few years. He states that his last detox was approx two years ago. He has used heroin for fifteen years- a "bundle" a day. Has drank a six-pack of beers along with hard liquor daily for the past twenty years. States that he has also used cocaine and marijuana "frequently." Hospital course: Date of Admission:01/30/18 Date of Discharge: 02/07/18 Pt with decision to leave AMA. Pt is A&Ox3, mentally competent and capable to make his own medical decisions. Pt counseled on risks of leaving AMA, including possible falls due to deconditioning. Acknowledged risks and stated he still wished to leave. Provided outpt rx's for cardiac meds, inhaler and rolling walker. Detox team provided brief course of suboxone until pt can reinstate care at prior outpt detox program. Discharge Summary Reason For Visit: ALTERED MENTAL STATUS - Instructions Diet, Activity, Other Instructions: During your stay at [facility], you were treated for suspected cardiac arrest and altered mental status. You were evaluated for an elevation in your cardiac enzymes, which can sometimes signal a heart attack, however after full evaluation from our cardiology team, this was ruled out. Medications: The following medications were added to your medication regimen. Please take them as directed below. Coreg 3.125mg, one pill by mouth, twice a day Abuterol, 2 puffs every four hours, if you become symptomatic as needed Aspirin 81mg, take one pill by mouth, once a day Lisinopril 10mg, take one pill by mouth, once a day Lipitor 10mg, take on pill by mouth, once a day STRONGLY RECOMMENDED THAT YOU STOP USING COCAINE WHILE ON THE MEDICATION COREG. THE COMBINATION OF THESE TWO DRUGS CAN BE LETHAL. Please continue to take all other home medications as previously directed. Follow-ups: Please follow-up with your primary care physician in 1 week. If you require a referral for a primary care provider, we have provided a referral to the resident clinic with Dr. Koroma. Please call their office to schedule an appointment. Their contact information has been provided During your stay, you received a CT scan of your chest showing a suspicious lung mass and chronic changes to the lung tissue consistent with COPD/ emphysema. We recommend that you follow up with a repairer shoe sticks for further outpatient work-up and managment. Please follow-up with our repairer shoe sticks, Dr. Jhaveri, in his clinic in two weeks. His contact information has been provided in this packet. Please call to make an appointment. You were seen by our cardiology team during your admission. Please follow-up with Dr. Dawson in clinic in two weeks for further management of your cardiac medications. Please call his office to schedule an appointment. His contact information has been provided in this packet. Diet/exercise: Please abide by a low fat, low sodium diet. Please use a rolling walker when ambulating at home. You have been provided a prescription. Please return to the hospital if you experience any of the following symptoms: - Worsening or persistent chest pain or tightness - Inability to catch your breath or prolonged shortness of breath not relieved by rest - Persistent numbness or pain in your arm, jaw, neck or back - Any new or concerning symptoms Referrals: Edson Koroma MD [Staff Physician] - 1 Week Sloan Jhaveri MD [Staff Physician] - 2 Weeks Stone Dawson MD [Staff Physician] - Disposition: AGAINST MEDICAL ADVICE - Home Medications Comprehensive Discharge Medication List: Ambulatory Orders Albuterol Sulfate Inhaler - [Ventolin HFA Inhaler -] 2 puff IH Q4H PRN #1 inhaler 02/07/18 Aspirin [ASA -] 81 mg PO DAILY tab.chew 02/07/18 Atorvastatin Ca [Lipitor] 10 mg PO HS #30 tablet 02/07/18 Buprenorphine/Naloxone [Suboxone 8Mg/2Mg Sl Film -] 1 each SL DAILY #30 film MDD 1 02/07/18 Carvedilol [Coreg -] 3.125 mg PO BID #60 tablet 02/07/18 Lisinopril [Prinivil] 10 mg PO DAILY #30 tablet 02/07/18 Miscellaneous Drug Not in Syst 0 each .ROUTE ASDIR #1 each 02/07/18 - Discharge Referral Referred to [facility] No
[2018-02-08] MEDS ORDERED: BUPRENORPHINE/NALOXONE 8 MG/2 MG FILM PACKET SL SCH (10:00)
== END 2018-02-07 13:53 | disposition left against medical advice (07) | DRG 52 ==
LOC: JER 22:37 → JERBED 01-30 03:49 → UNDOADMIN 01-30 04:03 → JERBED 01-30 04:03 → J4W 01-30 14:00 → J5S 02-03 17:25
PROVIDERS: ADMIT Internal Medicine; ATTEND Hospitalist
PROC: HZ2ZZZZ Detoxification Services for Substance Abuse Treatment (ICD-10-PCS; principal; 2018-01-30)
PROC: HZ81ZZZ Medication Management for Substance Abuse Treatment, Methadone Maintenance (ICD-10-PCS; 2018-01-30)
DX: G92 Toxic encephalopathy (principal); I42.7 Cardiomyopathy due to drug and external agent; I50.9 Heart failure, unspecified; E87.1 Hypo-osmolality and hyponatremia; N39.0 Urinary tract infection, site not specified; F10.230 Alcohol dependence with withdrawal, uncomplicated; J43.9 Emphysema, unspecified; F14.23 Cocaine dependence with withdrawal; F11.23 Opioid dependence with withdrawal; F17.210 Nicotine dependence, cigarettes, uncomplicated; F12.20 Cannabis dependence, uncomplicated; F51.05 Insomnia due to other mental disorder; F41.8 Other specified anxiety disorders; J45.909 Unspecified asthma, uncomplicated; R63.4 Abnormal weight loss; Z68.22 Body mass index [BMI] 22.0-22.9, adult; I45.81 Long QT syndrome; I87.2 Venous insufficiency (chronic) (peripheral); Z59.0 Homelessness; R11.0 Nausea; M54.9 Dorsalgia, unspecified
CPT/HCPCS: 36415; 71045-TC-FY; 71250-TC; 72100-TC-FY; 78452-TC; 80048; 80053; 80307; 81003; 81015; 82550; 82553; 83605; 83735; 84100; 84484; 85025; 85027; 85610; 86480; 87040; 87086; 87804; 93005; 93010; 93017; 93306-TC; 93880-TC; 94761; 97116-GP; 97162-GP; 99283-25; A9502; J0735; J7030